=== PATIENT | male | born 1960 | race Caucasian/White ===

== ENCOUNTER 2021-08-06 12:42 | Emergency (ER) | payer OTHER, SELFPAY ==
[2021-08-06 13:14] VITALS: BP 122/71; PULSE 64; RESP 19; TEMP 36.6; O2SAT 99; BMI 24.0
--- NOTE | 2021-08-06 13:55 | ED.GENADULT ---
HPI - General Adult General Chief complaint: General Medical Stated complaint: finger infection Time Seen by Provider: 08/06/21 13:35 Source: patient Mode of arrival: ambulatory Limitations: no limitations History of Present Illness HPI narrative: 61-year-old male presents to ED for right index finger infection. Patient states he was biting the side of the nail to remove some skin and with same finger started picking at nose and then 2 days later started noticing near nail cuticle finger turning green/red and swollen. She denies any IV drug use. Patient denies any history of diabetes. Related Data Previous Rx's Medication Instructions Recorded cephalexin 500 mg capsule 500 mg PO QID 7 Days #28 cap 08/06/21 doxycycline hyclate 100 mg capsule 100 mg PO BID 7 Days #14 cap 08/06/21 Allergies Allergy/AdvReac Type Severity Reaction Status Date / Time acetaminophen Allergy Unknown RASH, ITCHY Unverified 03/06/20 16:39 [From Tylenol-Codeine] codeine Allergy Unknown RASH, ITCHY Unverified 03/06/20 16:39 [From Tylenol-Codeine] Penicillins Allergy Unknown RASH, ITCHY Unverified 03/06/20 16:39 Review of Systems Review of Systems: Right index finger infection Yes all other systems are reviewed and are negative [facility] Social History Social History Advance Directives: No Advance Directives Information Provided: No Physical Exam ED Vital Signs: Vital Signs - 24 hr 08/06/21 13:14 Temperature 98 F Pulse Rate 64 Respiratory Rate 19 Blood Pressure 122/71 Pulse Oximetry 99 BMI result Body Mass Index 24.0 Const General: cooperative, healthy appearing, comfortable, no acute distress, well developed, alert, awake and Physically active Orientation/consciousness: oriented to person and oriented to place [facility] Head: Yes normal to inspection, Yes No palpable skull fracture present, Yes normocephalic and Yes atraumatic Eyes General: appearance normal, both eyes and all related structures Neck Neck: Yes normal visual inspection, Yes full ROM, Yes no lymphadenopathy, Yes no meningeal signs, Yes trachea midline, Yes supple, No anterior neck swelling and No tender Chest Chest palpation & inspection: normal inspection of the chest and normal palpation of entire chest wall Resp Effort & Inspection: normal respiratory effort and able to speak in complete sentences Auscultation: clear to auscultation bilaterally Cardio Jugular venous distension: no JVD Heart sounds: S1 normal heart sound present and S2 normal heart sound present GI Inspection: Yes normal to inspection and No abdominal wall ecchymosis Palpation (GI): Soft to palpation, not firm, nontender, no guarding and not rigid General: No CVA tenderness and Yes no CVA tenderness Back/Spine/Pelvis Back: no CVA tenderness, No CVA tenderness and No back tenderness Skin General skin exam: no rashes or lesions noted and elasticity normal Neuro General: oriented to person, oriented to place and no meningeal signs Extrem General: Yes normal to inspection and Yes full ROM Hand/finger images: 1. Red/green discoloration with swelling and warmth. Capillary refill is intact. Rest of extremities normal. Motor/nerve/vascular exam intact. Negative for signs of tenosynovitis. Patient has complete range of motion of finger. Psych Appearance: grossly normal, well kempt and not disheveled Course Course Course Narrative: Paronychia. Will order tetanus and perform incision drainage Reevaluation(s) Reevaluation #1: Wound cleaned sterile saline Betadine iodine. Size 11 blade used for incision. Green/yellow pus was squeezed. Patient to be discharged with antibiotics Time: 14:59 Medical Decision Making [facility] Narrative Medical decision making narrative: Paronychia Discharge Plan Discharge Clinical Impression: Paronychia of finger Patient Disposition: Home, Self-Care Instructions: Paronychia (ED) Additional Instructions: you will be discharged with antibiotics. Please follow-up with primary care provider. Return to the ED immediately for redness, red streaks, swelling, profuse pus, fever, chills, or any other concerning symptoms. Prescriptions: New doxycycline hyclate 100 mg capsule 100 mg PO BID 7 Days Qty: 14 0RF cephalexin 500 mg capsule 500 mg PO QID 7 Days Qty: 28 0RF Interventions: ED Discharge Assessment Last Done: 08/06/21 15:21 Discharge Date/Time: 08/06/21 15:21 Print Language: Portuguese
[2021-08-06] MEDS: Diphth,Pertus(ACell),Tet Adult 0.5 ML SYRINGE IM (14:04)
[2021-08-06] MEDS: Lidocaine HCl 2 % MPF 5 ML VIAL INFILTRATI ×2 (14:05→14:06)
== END 2021-08-06 15:21 | disposition home or self-care (01) ==
PROVIDERS: Emergency Provider Emergency Medicine Emergency Medical Services; PCP Internal Medicine
DX: S60.410A Abrasion of right index finger, initial encounter (principal); L03.011 Cellulitis of right finger; X58.XXXA Exposure to other specified factors, initial encounter; Y93.9 Activity, unspecified; Y92.9 Unspecified place or not applicable; Y99.9 Unspecified external cause status; Z79.899 Other long term (current) drug therapy
CPT/HCPCS: 90471; 90715; 99283; 99284

== ENCOUNTER 2022-02-16 11:31 | Emergency (ER) | payer OTHER, SELFPAY ==
[2022-02-16 11:46] VITALS: BP 125/80; PULSE 89; RESP 18; TEMP 36.9; O2SAT 97; BMI 24.0
--- NOTE | 2022-02-16 12:51 | ED.SKABFB ---
HPI - Skin/Abscess/Foreign Bdy General Chief complaint: Skin/Abscess/Foreign Body Stated complaint: Infection on lower lip Time Seen by Provider: 02/16/22 12:01 Source: patient Mode of arrival: ambulatory Limitations: no limitations History of Present Illness HPI narrative: 62-year-old male presents to the ER for evaluation of an abscess to his lower lip for the last couple of days. He reports it started after he shaved his face with a dry razor. He has been using topical antibiotic ointment with improvement however when he ran out of the unit complaint: abscess/boil Onset (ago): day(s) (3) Tetanus up to date: yes Location: face Severity: moderate Severity scale (1-10): 5 Quality: aching Pain Consistency: constant Relieving factors: none Exacerbating factors: palpation Associated symptoms: denies other symptoms Treatments prior to arrival: attempted to drain pus at home and OTC topical medication Related Data Previous Rx's Medication Instructions Recorded cephalexin 500 mg capsule 500 mg PO QID 7 days #28 caps 08/06/21 doxycycline hyclate 100 mg capsule 100 mg PO BID 7 days #14 caps 08/06/21 cephalexin 500 mg capsule 500 mg PO QID 5 days #20 caps 02/16/22 mupirocin 2 % topical ointment 1 appl topical BID #15 grams 02/16/22 Allergies Allergy/AdvReac Type Severity Reaction Status Date / Time acetaminophen Allergy Unknown RASH, ITCHY Unverified 03/06/20 16:39 [From Tylenol-Codeine] codeine Allergy Unknown RASH, ITCHY Unverified 03/06/20 16:39 [From Tylenol-Codeine] Penicillins Allergy Unknown RASH, ITCHY Unverified 03/06/20 16:39 Review of Systems Review of Systems: Constitutional: No Fever, No Chills ENT/Mouth: No sore throat, No Rhinorrhea, No Swallowing Difficulty, +Lip swelling, No mouth swelling Eyes: No Eye Pain, No Swelling, No Redness Cardiovascular: No Chest Pain, No SOB Gastrointestinal: No Nausea, No Vomiting, No abdominal Pain Musculoskeletal: No joint pain, No Myalgias Skin: + Skin Lesions, No rash Neuro: No Weakness, No Numbness, No Dizziness, No Headache Psych: No Anxiety/Panic, No Depression Heme/Lymph: No Bruising, No Lymphadenopathy PMFSH Social History Social History Advance Directives: No Advance Directives Information Provided: Yes Physical Exam Vital Signs: Vital Signs: Last Vital Signs Temp 98.5 F 02/16/22 11:46 Pulse 89 02/16/22 11:46 Resp 18 02/16/22 11:46 BP 125/80 02/16/22 11:46 Pulse Ox 97 02/16/22 11:46 O2 Del Method 02/16/22 11:46 BMI result Body Mass Index 24.0 Appearance: Alert. Oriented X3. No acute distress. HEENT: lower lip with mild swelling centrally with a small pustule with green discharge, no vesicles. tender. normal oropharynx. no oral lesions CVS: Normal heart rate and rhythm. Pulses normal. Respiratory: No respiratory distress. Skin: Skin warm and dry. Normal skin color. Normal skin turgor. No rashes. Extremities: normal inspection x4, normal ROM Neuro: Oriented X 3. lethargic at times, appears to be under the influence of drugs Course Course Course Narrative: 62 yo male presents to the ER with a small abscess to his lower lip after shaving. purulent drainage. does not appear to be a herpetic lesion. offered to make small incision to help drainage however he refused. he is requesting topical abx. given the swelling of the lip will also prescribe oral abx as well. advised to continue warm compresses several times per day. stable for d/c home. Discharge Plan Discharge Clinical Impression: Abscess of skin or subcutaneous tissue Patient Disposition: Home, Self-Care Instructions: Abscess (ED) Additional Instructions: Use warm compresses to the area several times per day. Take the prescribed antibiotic as directed. Use a topical antibiotic as directed. If you develop new or worsening symptoms call 911 or come back to the ER for further evaluation. Prescriptions: New cephalexin 500 mg capsule 500 mg PO QID 5 Days Qty: 20 0RF mupirocin 2 % ointment 1 appl topical BID Qty: 15 0RF No Action doxycycline hyclate 100 mg capsule 100 mg PO BID 7 Days Qty: 14 0RF cephalexin 500 mg capsule 500 mg PO QID 7 Days Qty: 28 0RF Interventions: ED Discharge Assessment Last Done: 02/16/22 13:19 Discharge Date/Time: 02/16/22 13:19
== END 2022-02-16 13:19 | disposition home or self-care (01) ==
PROVIDERS: Emergency Provider Emergency Medicine; PCP Internal Medicine
DX: K13.0 Diseases of lips (principal)
CPT/HCPCS: 99282; 99283

== ENCOUNTER 2022-05-17 14:59 | Inpatient (IN) | payer OTHER, SELFPAY ==
--- NOTE | ~2022-05-17 | CT_ITS ---
EXAMINATION: CT ABDOMEN WITH CONTRAST CLINICAL INFORMATION: Ruptured appendicitis with abscess COMPARISON: Previous CT of the abdomen and pelvis from yesterday TECHNIQUE: Contiguous axial thin section helical images of the limited lower abdomen were performed following the administration of oral contrast and 85 mL of Omnipaque 350 intravenous contrast. The data set was reformatted in the coronal and sagittal planes and reviewed on an independent workstation. Exam was performed pre-CT drainage This CT examination was performed using dose optimization techniques as appropriate, variously including the following: *Automated exposure control *Adjustment of mA and/or kV according to patient size (this includes techniques or standardized protocols for targeted exams where dose is matched to indication/reason for exam; i.e. extremities or head) *Use of iterative reconstruction technique DLP: 198 mGy-cm FINDINGS: The appendix appears retrocecal and extends superiorly. There is extensive inflammatory changes seen in the right lower quadrant surrounding the appendix with stranding of the fat and small amount of fluid. There is high attenuation at the base of the appendix is questionable for an appendicolith. Adjacent to that are several small multiloculated fluid collections, largest measuring 2 cm x 2 cm x 3 cm in diameter containing a small amount of air, for example axial image 9 series 4. There are several smaller possible adjacent 1 cm fluid collections for example axial image 10 series 4. There is a small amount of fluid in this region and stranding of the fat. There are small mesenteric lymph nodes. There is mass effect on the cecum. The cecum is patulous. What was thought to represent a periappendiceal abscess represents a patulous cecum. Findings were discussed with Dr. Scott by telephone. Drain was not placed. There is a small amount of fluid in the right hepatorenal renal space. The visualized kidneys are otherwise normal. There is a small 3 mm low-attenuation lesion in the inferior right lobe of the liver. Pancreas spleen and adrenal glands and the majority of the liver not imaged. Normal bladder. Slightly enlarged prostate gland. Small left inguinal hernia containing fat. Normal vascular structures. Degenerative changes of the spine. CT/CT abdomen w IV con IMPRESSION: Retrocecal appendix with likely perforated appendicitis and small periappendiceal abscesses, largest measuring 2 x 2 x 3 cm. Percutaneous drain was not placed due to small size of the abscess(s). The appendix appears retrocecal and courses superiorly. Fleischner guidelines were followed.
--- NOTE | ~2022-05-17 | CT_ITS ---
EXAMINATION: CT ABDOMEN AND PELVIS WITHOUT CONTRAST CLINICAL INFORMATION: Constipation COMPARISON: None TECHNIQUE: Multidetector volumetric imaging was performed from the superior aspect of the liver through the pubic symphysis. Sagittal and coronal reformatted images were obtained on the technologist's workstation. This CT examination was performed using dose optimization techniques as appropriate, variously including the following: *Automated exposure control *Adjustment of mA and/or kV according to patient size (this includes techniques or standardized protocols for targeted exams where dose is matched to indication/reason for exam; i.e. extremities or head) *Use of iterative reconstruction technique DLP: 442 mGy-cm FINDINGS: LUNG BASES: The visualized lung bases are unremarkable. LIVER, GALLBLADDER, AND BILIARY TREE: The liver is normal in size and shape but demonstrates decreased attenuation suggesting hepatic steatosis. No focal hepatic lesion or biliary ductal dilatation is present. The gallbladder contains some layering high density material which may be sludge or possibly stones but otherwise is unremarkable with no evidence of calcified gallstones, gallbladder wall thickening, or obvious pericholecystic inflammatory changes. PANCREAS: Unremarkable. SPLEEN: Unremarkable. ADRENAL GLANDS: Unremarkable. KIDNEYS AND URETERS: The kidneys are normal in size, shape, and attenuation. No hydronephrosis, hydroureter, or calculi seen. No perinephric stranding. BLADDER: Unremarkable. GASTROINTESTINAL TRACT: A significant inflammatory process is present in the right mid abdomen/right lower quadrant. I believe this represents appendicitis with a large appendicolith and probable periappendiceal abscess measuring 6.4 x 5.5 x 3.9 cm. A few scattered colonic diverticula are seen without diverticulitis. The small bowel and the remainder of the large bowel are unremarkable. . ABDOMINAL WALL: No significant hernia is appreciated. LYMPH NODES: Normal. VASCULAR: Unremarkable. PELVIC VISCERA: Mildly prominent prostate. Seminal vesicles appear normal OSSEOUS STRUCTURES: Unremarkable. CT/CT abdomen pelvis wo IV con IMPRESSION: 1. Acute appendicitis with large appendicolith and periappendiceal abscess. 2. Incidental note made of hepatic steatosis, scattered colonic diverticula without diverticulitis and mildly prominent prostate. Fleischner guidelines were followed.
--- NOTE | 2022-05-17 16:25 | ED_ITS ---
HPI - General Adult General Chief complaint: Abdominal Pain Stated complaint: Abd pain Time Seen by Provider: 05/17/22 19:14 Related Data Previous Rx's Medication Instructions Recorded aspirin 81 mg chewable tablet 81 mg PO DAILY #30 tabs 01/06/23 gabapentin 100 mg capsule 100 mg PO BID #30 caps 01/06/23 hydroxyzine HCl 50 mg tablet 50 mg PO Q8H PRN Anxiety #20 tabs 01/06/23 melatonin 3 mg tablet 6 mg PO BEDTIME PRN Insomnia #30 01/06/23 tabs Allergies Allergy/AdvReac Type Severity Reaction Status Date / Time acetaminophen Allergy Unknown RASH, ITCHY Verified 06/03/22 14:29 [From Tylenol-Codeine] codeine Allergy Unknown RASH, ITCHY Verified 06/03/22 14:29 [From Tylenol-Codeine] Penicillins Allergy Unknown RASH, ITCHY Verified 06/03/22 14:29 PMFSH Past Medical History Surgical History H/O inguinal hernia repair S/P laparoscopic appendectomy (05/19/22) Social History Social History Household Members: None Household Members Other:: 1 Housing: Apartment Do you presently have visiting nurse or other home services: No Patient Tobacco Use Status: Former Tobacco user Quit Date: 1978 Tobacco use type: Cigarette Substance Use Type: Crack/Cocaine service: No Current occupational status: disabled Physical Exam ED Vital Signs: Vital Signs - 24 hr 05/17/22 16:27 Temperature 99 F Pulse Rate 82 Respiratory Rate 16 Blood Pressure 108/70 Pulse Oximetry 96 Oxygen Delivery Method Room Air BMI result Body Mass Index 25.7 Course Reevaluation(s) Reevaluation #1: 62 year old no known pmhx presents w/ constipation X2 days and states my stomach is locked up . Reports he hasnt been able to eat in two days. Tells me having difficulty passing gas. No hx of malignancy, LBO, SBO. Reports his stomach doesnt feel right all over. Denies chest pain, sob, fevers, chills, change in urinarion or bowel habits. Hx of hernias. PE- diffuse tenderness,normal BS Plan- labs, urine, dry ct. Time: 16:27 Reevaluation #2: Appears even more uncomfortable than before, requesting pain meds CT shows appendicitis will bring patient to back for prompt eval and surgical consult. Time: 19:17 Reevaluation #3: This patient was evaluated by provider Rena CONDON on 05/17/22, please refer to that her providers full charge Time: 13:45 Medications Administered Discontinued Medications Generic Name Dose Route Start Last Admin Trade Name Freq PRN Reason Stop Dose Admin Diatrizoate Meglum/Diatrizoate Sod 30 ml 05/18/22 14:37 05/18/22 14:38 Diatrizoate Meglumine, Sodium 30 Ml Solution PO 05/18/22 14:38 30 ml ONCE ONE Administration Docusate Sodium 100 mg 05/17/22 16:28 05/17/22 17:50 Docusate Sodium 100 Mg Capsule PO 05/17/22 16:29 100 mg ONCE ONE Administration Hydromorphone HCl 0.5 mg 05/17/22 19:35 05/18/22 08:09 Hydromorphone Hcl 0.5 Mg/0.5 Ml Syringe IVPUSH 0.5 mg Q3H PRN Administration Pain, Severe (Pain Scale 7-10) Protocol Levofloxacin 750 mg in 150 mls @ 100 mls/hr 05/17/22 19:31 05/17/22 22:30 Levaquin IV 05/17/22 21:00 Infused ONCE ONE Infusion Metronidazole 500 mg in 100 mls @ 100 mls/hr 05/17/22 19:31 05/18/22 00:21 Flagyl IV 05/17/22 20:30 Infused ONCE ONE Infusion Dextrose/Lactated Ringer's 1,000 mls @ 125 mls/hr 05/17/22 19:45 05/20/22 12:38 D5lr IVCONT Infused .Q8H MARY Infusion Levofloxacin 500 mg in 100 mls @ 100 mls/hr 05/18/22 06:04 05/22/22 06:49 Levaquin IV Infused Q24H MARY Infusion Metronidazole 500 mg in 100 mls @ 100 mls/hr 05/18/22 07:00 05/22/22 09:44 Flagyl IV Infused Q8H MARY Infusion Iohexol 100 ml 05/18/22 14:36 05/18/22 14:37 Iohexol 350 Mg/Ml 100 Ml Infus..Btl IV 05/18/22 14:37 100 ml ONCE ONE Administration Ketorolac Tromethamine 15 mg 05/18/22 11:15 05/19/22 03:15 Ketorolac Tromethamine 30 Mg/Ml Vial IVPUSH 15 mg Q6H PRN Administration abdominal pain Morphine Sulfate 4 mg 05/17/22 19:17 05/17/22 20:34 Morphine Sulfate 4 Mg/Ml Cartridge IVPUSH 05/17/22 19:18 4 mg ONCE ONE Administration Protocol Ondansetron HCl 4 mg 05/17/22 19:17 05/17/22 20:34 Ondansetron Hcl 4 Mg/2 Ml Vial IVPUSH 05/17/22 19:18 4 mg ONCE ONE Administration Oxycodone HCl 5 mg 05/17/22 19:35 05/18/22 10:04 Oxycodone Hcl Immed Release 5 Mg Tablet PO 5 mg Q6H PRN Administration Pain, Severe (Pain Scale 7-10) Oxycodone HCl 5 mg 05/18/22 11:16 05/21/22 09:37 Oxycodone Hcl Immed Release 5 Mg Tablet PO 5 mg Q4H PRN Administration Pain, Moderate (Pain Scale 4-6 Oxycodone HCl 10 mg 05/18/22 11:13 05/22/22 08:59 Oxycodone Hcl Immed Release 5 Mg Tablet PO 10 mg Q4H PRN Administration Pain, Severe (Pain Scale 7-10) Polyethylene Glycol 17 gm 05/17/22 16:28 05/17/22 17:50 Polyethylene Glycol 3350 17 Gm Powd.Pack PO 05/17/22 16:29 17 gm ONCE ONE Administration Senna 15 ml 05/17/22 16:28 05/17/22 17:50 Senna [place] Extract Oral Syrup 15 Ml Syrup PO 05/17/22 16:29 15 ml ONCE ONE Administration Sodium Chloride 3 ml 05/18/22 00:00 05/22/22 08:34 0.9 % Sodium Chloride Flush 3 Ml Syringe IVFLUSH Not Given [facility] Zolpidem Tartrate 5 mg 05/17/22 19:35 05/20/22 23:53 Zolpidem Tartrate 5 Mg Tablet PO 5 mg BEDTIME PRN Administration Insomnia Medical Decision Making Lab Data 05/19/22 07:06 05/18/22 06:03 Labs: Lab Results 05/17/22 05/17/22 05/17/22 Range/Units 19:35 19:35 19:35 WBC 17.6 H (4.8-10.8) X10*3/uL RBC 5.21 (4.60-5.80) X10*6/uL Hgb 16.0 (14.0-18.0) g/dl Hct 46.0 (42.0-52.0) % MCV 88.3 (80.0-98.0) fL MCH 30.7 (27.0-33.0) pg MCHC 34.8 (31.0-36.0) g/dl RDW 12.0 (11.0-16.0) % Plt Count 182 (160-400) X10*3/uL MPV 10.1 (9.4-12.4) fL Immature Gran % (Auto) 0.3 (0.0-0.4) % Neut % (Auto) 85.9 H (45-73) % Lymph % (Auto) 7.7 L (20-40) % [place] % (Auto) 5.8 (2-11) % Eos % (Auto) 0.1 (0-4) % Baso % (Auto) 0.2 (0-2) % Lymph # (Auto) 1.4 (1.2-4.9) X10*3/uL [place] # (Auto) 1.0 (0.1-1.2) X10*3/uL Eos # (Auto) 0.0 (0.0-0.4) X10*3/uL Baso # (Auto) 0.0 (0.0-0.2) X10*3/uL Abs Immat Gran (auto) 0.06 H (0.00-0.03) X10*3/uL Absolute Neuts (auto) 15.1 H (2.0-8.3) x10*3/uL Absolute Nucleated RBC 0.000 (0.0-0.012) X10*3/uL Nucleated RBC % (auto) 0.0 (0.0-0.2) /100WBC Sodium 135 (135-145) mmol/L Potassium 3.6 (3.3-5.1) mmol/L Chloride 101 (96-108) mmol/L Carbon Dioxide 26 (22-29) mmol/L Anion Gap 12 (12-20) BUN 13 (9-16) mg/dL Creatinine 1.00 (0.5-1.4) mg/dL Estim Creat Clear Calc 64.9 Estimated GFR > 60 Random Glucose 126 H (60-115) mg/dL Calcium 9.3 (8.4-10.2) mg/dL Magnesium 2.2 (1.6-2.6) mg/dL Total Bilirubin 2.9 H (0.0-1.0) mg/dL AST 16 (5-37) U/L ALT 13 (0-40) U/L Alkaline Phosphatase 46 (39-117) U/L Total Protein 7.3 (6.5-8.0) g/dL Albumin 4.3 (3.5-5.0) g/dL Lipase 25 (8-78) U/L COVID-19 (ZAHRAA) Negative (Negative) COVID-19 Clin Com See Note Discharge Plan Discharge Clinical Impression: Acute appendicitis, Abdominal abscess, Appendicolith Patient Disposition: Admitted As Inpatient Interventions: Admission Worksheet (ED) Last Done: 05/19/22 14:44 Discharge Date/Time: 05/19/22 14:45
[2022-05-17 16:27] VITALS: BP 108/70; PULSE 82; RESP 16; TEMP 37.2; O2SAT 96; BMI 25.7
[2022-05-17] MEDS: Docusate Sodium 100 MG CAPSULE PO (17:50)
[2022-05-17] MEDS: polyethylene glycoL 3350 17 GM POWD.PACK PO (17:50)
--- NOTE | 2022-05-17 19:18 | ED_ITS ---
HPI - Abdominal Pain General Chief Complaint: Abdominal Pain Stated Complaint: Abd pain Time Seen by Provider: 05/17/22 19:14 Source: patient Mode of arrival: ambulatory Limitations: no limitations History of Present Illness HPI narrative: 62-year-old male presents with diffuse abdominal pain, difficulty passing flatus for the past 2 days, constipation, and poor p.o. intake. Has not eaten any food in the past 2 days, has been only taking sips of water. Patient appears very uncomfortable. Has done but in his pants because his abdominal pain is so severe. He does not report fevers or chills, denies nausea and vomiting. MD elicited complaint: abdominal pain Pertinent past history: none Onset (ago): day(s) (2) Pain Consistency: constant Location: diffuse Severity: severe Pain scale (0-10): 10 Quality: aching Migration to: no migration Exacerbating factors: eating, bowel movement and movement Relieving factors: nothing Associated symptoms: constipation and anorexia Related Data Home Medications Medication Instructions Recorded Confirmed No Known Home Meds 05/17/22 05/17/22 Allergies Allergy/AdvReac Type Severity Reaction Status Date / Time acetaminophen Allergy Unknown RASH, ITCHY Verified 05/17/22 16:31 [From Tylenol-Codeine] codeine Allergy Unknown RASH, ITCHY Verified 05/17/22 16:31 [From Tylenol-Codeine] Penicillins Allergy Unknown RASH, ITCHY Verified 05/17/22 16:31 Review of Systems Review of Systems Constitutional: Positive anorexia, No Fever, No Chills ENT/Mouth: No Ear Pain, No Hoarseness, No sore throat Eyes: No Eye Pain, No Swelling, No Redness, No Foreign Body Cardiovascular: No Chest Pain, No SOB Respiratory: No Cough, No Dyspnea Gastrointestinal: No Nausea, No Vomiting, No Diarrhea, positive abdominal Pain Genitourinary: No Dysuria, No Hematuria Musculoskeletal: No joint pain, No Myalgias, No Joint Swelling Skin: No Skin lacerations, No rash Neuro: No Weakness, No Numbness, No Paresthesias, No Loss of Consciousness, No Dizziness, No Headache Psych: No Anxiety/Panic, No Depression Heme/Lymph: no easy bruising, no Lymphadenopathy Endocrine: No Polyuria, No Polydipsia Yes all other systems are reviewed and are negative [facility] Past Medical History Attestation statement: The following information was validated with the patient. Source: old records reviewed Social History Social History Advance Directives: No Advance Directives Information Provided: No Physical Exam ED Vital Signs: Vital Signs - 24 hr 05/17/22 16:27 Temperature 99 F Pulse Rate 82 Respiratory Rate 16 Blood Pressure 108/70 Pulse Oximetry 96 Oxygen Delivery Method Room Air BMI result Body Mass Index 25.7 Appearance: Alert. Oriented X3. Moderate distress. Eyes: Pupils equal, round and reactive to light. ENT: Pharynx normal. Neck: Normal inspection. Neck supple. CVS: Normal heart rate and rhythm. Pulses normal. Respiratory: No respiratory distress. Breath sounds normal. Abdomen: Diffusely tender with rebound tenderness. No rigidity. Skin: Skin warm and dry. Normal skin color. Normal skin turgor. Extremities: No lower extremity edema. Moves all extremities against resistance. Neuro: No motor deficit. No sensory deficit. Cranial nerves 2-12 intact. Course Course Course Narrative: 62-year-old male presents for diffuse abdominal pain for the past 2 days, unable to eat, has had sips of water. Is reporting constipation, is unable to button his pants because of the severe abdominal pain. CT scan was completed while patient was in the emergency department waiting room which indicates appe ndicitis, appendicoliths, and abdominal abscess. 19:[address] Scott, order for Zosyn, morphine, Zofran. Last meal 2 days ago. 19:26 plan of care is to admit for antibiotics, IR consult. Plan for admission by Dr. Scott Consultations Consultation #1: Tyler Time: 19:18 Medications Administered Discontinued Medications Generic Name Dose Route Start Last Admin Trade Name Freq PRN Reason Stop Dose Admin Docusate Sodium 100 mg 05/17/22 16:28 05/17/22 17:50 Docusate Sodium 100 Mg Capsule PO 05/17/22 16:29 100 mg ONCE ONE Administration Levofloxacin 750 mg in 150 mls @ 100 mls/hr 05/17/22 19:31 05/17/22 20:34 Levaquin IV 05/17/22 21:00 100 mls/hr ONCE ONE Administration Morphine Sulfate 4 mg 05/17/22 19:17 05/17/22 20:34 Morphine Sulfate 4 Mg/Ml Cartridge IVPUSH 05/17/22 19:18 4 mg ONCE ONE Administration Protocol Ondansetron HCl 4 mg 05/17/22 19:17 05/17/22 20:34 Ondansetron Hcl 4 Mg/2 Ml Vial IVPUSH 05/17/22 19:18 4 mg ONCE ONE Administration Polyethylene Glycol 17 gm 05/17/22 16:28 05/17/22 17:50 Polyethylene Glycol 3350 17 Gm Powd.Pack PO 05/17/22 16:29 17 gm ONCE ONE Administration Senna 15 ml 05/17/22 16:28 05/17/22 17:50 Senna Echelon Extract Oral Syrup 15 Ml Syrup PO 05/17/22 16:29 15 ml ONCE ONE Administration MDM - Abdominal Pain Differential Diagnosis Differential diagnosis: Likely abdominal pain and acute appendicitis Medical Records Attestation: I reviewed the patient's medical records. Lab Data Attestation: I reviewed the patient's lab results. Result diagrams: 05/17/22 19:35 05/17/22 19:35 Labs: Lab Results 05/17/22 05/17/22 05/17/22 Range/Units 19:35 19:35 19:35 WBC 17.6 H (4.8-10.8) X10*3/uL RBC 5.21 (4.60-5.80) X10*6/uL Hgb 16.0 (14.0-18.0) g/dl Hct 46.0 (42.0-52.0) % MCV 88.3 (80.0-98.0) fL MCH 30.7 (27.0-33.0) pg MCHC 34.8 (31.0-36.0) g/dl RDW 12.0 (11.0-16.0) % Plt Count 182 (160-400) X10*3/uL MPV 10.1 (9.4-12.4) fL Immature Gran % (Auto) 0.3 (0.0-0.4) % Neut % (Auto) 85.9 H (45-73) % Lymph % (Auto) 7.7 L (20-40) % [place] % (Auto) 5.8 (2-11) % Eos % (Auto) 0.1 (0-4) % Baso % (Auto) 0.2 (0-2) % Lymph # (Auto) 1.4 (1.2-4.9) X10*3/uL [place] # (Auto) 1.0 (0.1-1.2) X10*3/uL Eos # (Auto) 0.0 (0.0-0.4) X10*3/uL Baso # (Auto) 0.0 (0.0-0.2) X10*3/uL Abs Immat Gran (auto) 0.06 H (0.00-0.03) X10*3/uL Absolute Neuts (auto) 15.1 H (2.0-8.3) x10*3/uL Absolute Nucleated RBC 0.000 (0.0-0.012) X10*3/uL Nucleated RBC % (auto) 0.0 (0.0-0.2) /100WBC Sodium 135 (135-145) mmol/L Potassium 3.6 (3.3-5.1) mmol/L Chloride 101 (96-108) mmol/L Carbon Dioxide 26 (22-29) mmol/L Anion Gap 12 (12-20) BUN 13 (9-16) mg/dL Creatinine 1.00 (0.5-1.4) mg/dL Estim Creat Clear Calc 64.9 Estimated GFR > 60 Random Glucose 126 H (60-115) mg/dL Calcium 9.3 (8.4-10.2) mg/dL Magnesium 2.2 (1.6-2.6) mg/dL Total Bilirubin 2.9 H (0.0-1.0) mg/dL AST 16 (5-37) U/L ALT 13 (0-40) U/L Alkaline Phosphatase 46 (39-117) U/L Total Protein 7.3 (6.5-8.0) g/dL Albumin 4.3 (3.5-5.0) g/dL Lipase 25 (8-78) U/L COVID-19 (ZAHRAA) Negative (Negative) COVID-19 Clin Com See Note Imaging Data CT scan - abdomen: Attestation: I personally reviewed and interpreted this imaging study as follows: Radiologist's impression: EXAMINATION: CT ABDOMEN AND PELVIS WITHOUT CONTRAST? CLINICAL INFORMATION: Constipation? COMPARISON: None? TECHNIQUE: Multidetector volumetric imaging was performed from the superior aspect of the liver through the pubic symphysis. Sagittal and coronal reformatted images were obtained on the technologist's workstation.? This CT examination was performed using dose optimization techniques as appropriate, variously including the following: *Automated exposure control *Adjustment of mA and/or kV according to patient size (this includes techniques or standardized protocols for targeted exams where dose is matched to indication/reason for exam; i.e. extremities or head) *Use of iterative reconstruction technique DLP: 442 mGy-cm FINDINGS: LUNG BASES: The visualized lung bases are unremarkable.? LIVER, GALLBLADDER, AND BILIARY TREE: The liver is normal in size and shape but demonstrates decreased attenuation suggesting hepatic steatosis. No focal hepatic lesion or biliary ductal dilatation is present. The gallbladder contains some layering high density material which may be sludge or possibly stones but otherwise is unremarkable with no evidence of calcified gallstones, gallbladder wall thickening, or obvious pericholecystic inflammatory changes.? PANCREAS: Unremarkable.? SPLEEN: Unremarkable.? ADRENAL GLANDS: Unremarkable.? KIDNEYS AND URETERS: The kidneys are normal in size, shape, and attenuation. No hydronephrosis, hydroureter, or calculi seen. No perinephric stranding. ? BLADDER: Unremarkable.? GASTROINTESTINAL TRACT: A significant inflammatory process is present in the right mid abdomen/right lower quadrant. I believe this represents appendicitis with? a large appendicolith and probable periappendiceal abscess measuring 6.4 x 5.5 x 3.9 cm. A few scattered colonic diverticula are seen without diverticulitis. The small bowel and the remainder of the large bowel? are unremarkable. .? ABDOMINAL WALL: No significant hernia is appreciated.? LYMPH NODES: Normal. VASCULAR: Unremarkable. PELVIC VISCERA: Mildly prominent prostate. Seminal vesicles appear normal? OSSEOUS STRUCTURES: Unremarkable.? CT/CT abdomen pelvis wo IV con IMPRESSION: 1.? Acute appendicitis with large appendicolith and periappendiceal abscess. 2.? Incidental note made of hepatic steatosis, scattered colonic diverticula without diverticulitis and mildly prominent prostate. ? Fleischner guidelines were followed. Discharge Plan Discharge Clinical Impression: Acute appendicitis, Abdominal abscess, Appendicolith Patient Disposition: Admitted As Inpatient
--- NOTE | 2022-05-17 19:19 | ECG_ITS ---
Test Reason : ABD PAIN Blood Pressure : / mmHG Vent. Rate : 082 BPM Atrial Rate : 082 BPM P-R Int : 132 ms QRS Dur : 088 ms QT Int : 360 ms P-R-T Axes : 037 043 031 degrees QTc Int : 420 ms Normal sinus rhythm Normal ECG No previous ECGs available Referred By: Senia Chase Electronically Signed By:YING SCOTT MD
[2022-05-17 19:52] LABS: COVID-19 Test Negative (Negative); IDNOW Serial# 16C4AD1C
[2022-05-17 19:53] LABS: MANUAL DIFF FLAG NO
[2022-05-17 19:55] LABS: Basophils Percent Auto 0.2 % (0-2); Eosinophils Percent Auto 0.1 % (0-4); Imm Gran Abs Auto 0.06 X10*3/uL (0.00-0.03); Imm Gran Pct Auto 0.3 % (0.0-0.4); Lymphocytes Absolute Auto 1.4 X10*3/uL (1.2-4.9); Lymphocytes Percent Auto 7.7 % (20-40); Mean Corpuscular HGB Conc 34.8 g/dl (31.0-36.0); Mean Corpuscular Hemoglobin 30.7 pg (27.0-33.0); Mean Corpuscular Volume 88.3 fL (80.0-98.0); Mean Platelet Volume 10.1 fL (9.4-12.4); Monocytes Percent Auto 5.8 % (2-11); Neutrophils Absolute Auto 15.1 x10*3/uL (2.0-8.3); Neutrophils Percent Auto 85.9 % (45-73); Platelet Count 182 X10*3/uL (160-400); Red Blood Count 5.21 X10*6/uL (4.60-5.80); White Blood Count 17.6 X10*3/uL (4.8-10.8)
[2022-05-17 20:15] LABS: Alanine Aminotransferase 13 U/L (0-40); Albumin Level 4.3 g/dL (3.5-5.0); Alkaline Phosphatase 46 U/L (39-117); Anion Gap 12 (12-20); Aspartate Amino Transferase 16 U/L (5-37); Bilirubin Total 2.9 mg/dL (0.0-1.0); Blood Urea Nitrogen 13 mg/dL (9-16); Calcium 9.3 mg/dL (8.4-10.2); Carbon Dioxide 26 mmol/L (22-29); Chloride 101 mmol/L (96-108); Creatinine Clr Calc Pharmacy 64.9; Estimated Glomerular Filt Rate > 60; Glucose Random 126 mg/dL (60-115); Lipase 25 U/L (8-78); Magnesium 2.2 mg/dL (1.6-2.6); Potassium 3.6 mmol/L (3.3-5.1); Sodium 135 mmol/L (135-145); Total Protein 7.3 g/dL (6.5-8.0)
[2022-05-17] MEDS: Morphine Sulfate 4 MG/ML CARTRIDGE IVPUSH (20:34)
[2022-05-17] MEDS: levoFLOXacin/D5W 750 MG/150 ML PIGGYBACK 100 MG IV (20:34)
[2022-05-17] MEDS: ondansetron HCL 4 MG/2 ML VIAL IVPUSH (20:34)
--- NOTE | 2022-05-17 20:48 | PHA.MEDREC ---
Pharmacy Consult ? Medication Reconciliation Pharmacy has completed the medication reconciliation. Patient reported no medications at home. Sola Bennett, OscarD
[2022-05-17 21:54] VITALS: BP 107/70; PULSE 91; RESP 18; TEMP 37.1; O2SAT 95
--- NOTE | 2022-05-17 22:02 | MHC.CM.PN ---
CM met with admitted patient with bed assignment pending. A&Ox4. Lives alone. Has [facility] PS[facility]OLOGIST from [facility]. 7 days/week. 9-12 noon and 12 mn -2am. Uses a cane, but states he lost it on the bus. Pt is un-vaccinated. Is Covid negative. HCP education provided, declines HCP at this time. D/C plan: home w/o services. [facility] PSYCHOLOGIST will transport home. [facility] ([phone]). CM will follow for d/c needs.
[2022-05-17] MEDS: HYDROmorphone HCl 0.5 MG/0.5 ML SYRINGE IVPUSH (22:30)
[2022-05-17] MEDS: metroNIDAZOLE/NS 500 MG/100 ML PIGGYBACK 100 MG IV (22:30)
[2022-05-17] MEDS: Dextrose 5 % and Lactated Ring 1,000 ML 125 ML IVCONT (23:40)
[2022-05-17] MEDS: 0.9 % Sodium Chloride Flush 3 ML SYRINGE IVFLUSH (23:41)
[2022-05-17 23:43] VITALS: BP 108/59; PULSE 87; RESP 17; TEMP 37.2; O2SAT 94
[2022-05-18] VITALS (7 sets, daily range): BP systolic 95–116; BP diastolic 58–73; PULSE 71–84; RESP 14–20; TEMP 36.5–36.9; O2SAT 94–96
[2022-05-18] MEDS: HYDROmorphone HCl 0.5 MG/0.5 ML SYRINGE IVPUSH ×2 (03:44→08:09)
[2022-05-18] MEDS: Dextrose 5 % and Lactated Ring 1,000 ML 125 ML IVCONT ×3 (03:45→21:14)
[2022-05-18 06:06] LABS: Appearance Urine Clear; Color Urine Dark Yellow; Glucose Urine UA Negative (Negative); Leukocyte Esterase Urine Trace (Negative); Nitrite Urine Negative (Negative); PH 5.5 (5.0-9.0); Specific Gravity - Urine 1.025 (1.005-1.025); UMIC TRIGGER UACC YES; Urine Blood Small (1+) (Negative); Urine Ketones Negative (Negative); Urine Protein 30 (1+) mg/dL (Neg-Trace)
[2022-05-18 06:16] LABS: Bacteria Urine None Seen (None Seen); Hyaline Casts Urine 0-2 /LPF (0-2); Squamous Epithelial Cell Urine 0-2 /HPF (0-2); WBC Urine 0-5 /HPF (0-5)
[2022-05-18] MEDS: levoFLOXacin/D5W 500 MG/100 ML PIGGYBACK 100 MG IV (06:23)
[2022-05-18 06:32] LABS: MANUAL DIFF FLAG NO
[2022-05-18 06:34] LABS: Basophils Percent Auto 0.2 % (0-2); Eosinophils Percent Auto 0.3 % (0-4); Hematocrit 45.9 % (42.0-52.0); Hemoglobin 15.1 g/dl (14.0-18.0); Imm Gran Abs Auto 0.08 X10*3/uL (0.00-0.03); Imm Gran Pct Auto 0.5 % (0.0-0.4); Lymphocytes Absolute Auto 1.4 X10*3/uL (1.2-4.9); Lymphocytes Percent Auto 9.1 % (20-40); Mean Corpuscular HGB Conc 32.9 g/dl (31.0-36.0); Mean Corpuscular Volume 91.3 fL (80.0-98.0); Mean Platelet Volume 10.4 fL (9.4-12.4); Monocytes Absolute Auto 0.9 X10*3/uL (0.1-1.2); Monocytes Percent Auto 5.7 % (2-11); Neutrophils Percent Auto 84.2 % (45-73); Platelet Count 179 X10*3/uL (160-400); Red Blood Count 5.03 X10*6/uL (4.60-5.80); White Blood Count 15.4 X10*3/uL (4.8-10.8)
[2022-05-18 06:55] LABS: Anion Gap 12 (12-20); Blood Urea Nitrogen 14 mg/dL (9-16); Carbon Dioxide 29 mmol/L (22-29); Chloride 101 mmol/L (96-108); Creatinine Clr Calc Pharmacy 60.1; Estimated Glomerular Filt Rate > 60; Glucose Random 141 mg/dL (60-115); Potassium 3.7 mmol/L (3.3-5.1); Sodium 138 mmol/L (135-145)
--- NOTE | 2022-05-18 07:44 | P.HPGS_ITS ---
History of Present Illness History of Present Illness Date of Service: 05/18/22 Chief complaint: Perforated appendicitis with abscess Narrative: John John is a 62 year old male presenting with complaints of abdominal pain in the right lower quadrant of 2 days duration. The pain was associated with fever and chills, anorexia, and constipation. He denied nausea or vomiting. Pain began in the right upper quadrant and gradually radiated to the right lower quadrant. He denied a previous history of similar symptoms. He subsequently presented to the emergency department and was noted to be tender in the right lower quadrant. CT abdomen and pelvis was obtained and revealed a fluid collection in the right lower quadrant with fecalith nearby suggestive of a perforated appendicitis with abscess formation. Laboratories revealed WBC of 17,000. He is admitted to the surgical service for further management of the perforated appendicitis with abscess formation. Review of Systems Review of Systems: Yes all other systems are reviewed and are negative Constitutional: Constitutional: Reports chills, Reports fever(s), Denies headache(s), Reports poor appetite and Denies weakness ENT: Denies headache(s) Cardiovascular: Cardiovascular: Denies chest pain, Denies irregular heart rhythm, Denies palpitations and Denies dyspnea Respiratory: Respiratory: Denies cough, Denies excessive phlegm production and Denies dyspnea Gastrointestinal: Gastrointestinal: Reports as per HPI, Reports abdominal pain, Denies bloating, Reports change in bowel habits, Reports constipation, Denies heartburn, Denies diarrhea, Denies nausea and Denies vomiting Genitourinary: Genitourinary: Denies difficulty urinating and Denies urinary frequency Musculoskeletal: Musculoskeletal: Denies back pain, Denies muscle weakness and Denies numbness Integumentary/Breasts: Skin/Breast: Denies changing lesions and Denies unusual bruising Neurologic: Denies headache(s), Denies numbness, Denies paresthesias and Denies weakness Psychiatric: Psychiatric: Denies anxiety and Denies depression Endocrine: Endocrine: Denies palpitations Hematologic/Lymphatic: Hematologic/Lymphatic: Denies lymphadenopathy [facility] Surgical History Surgical History (Updated 05/18/22 @ 07:47 by Jaskaran Scott MD) H/O inguinal hernia repair Social History Social History Advance Directives: No Advance Directives Information Provided: No service: No Current occupational status: disabled Meds Allergies Allergy/AdvReac Type Severity Reaction Status Date / Time acetaminophen Allergy Unknown RASH, ITCHY Verified 05/17/22 16:31 [From Tylenol-Codeine] codeine Allergy Unknown RASH, ITCHY Verified 05/17/22 16:31 [From Tylenol-Codeine] Penicillins Allergy Unknown RASH, ITCHY Verified 05/17/22 16:31 Active Medications: Current Medications Hydromorphone HCl (Hydromorphone Hcl 0.5 Mg/0.5 Ml Syringe) 0.5 mg IVPUSH Q3H PRN; Protocol PRN Reason: Pain, Severe (Pain Scale 7-10) Last Admin: 05/18/22 03:44 Dose: 0.5 mg Dextrose/Lactated Ringer's (D5lr) 1,000 mls @ 125 mls/hr IVCONT .Q8H [facility] Last Admin: 05/18/22 03:45 Dose: 125 mls/hr Levofloxacin (Levaquin) 500 mg in 100 mls @ 100 mls/hr IV Q24H [facility] Last Admin: 05/18/22 06:23 Dose: 100 mls/hr Metronidazole (Flagyl) 500 mg in 100 mls @ 100 mls/hr IV Q8H [facility] Ondansetron HCl (Ondansetron Hcl 4 Mg/2 Ml Vial) 4 mg IVPUSH QID PRN PRN Reason: Nausea Oxycodone HCl (Oxycodone Hcl Immed Release 5 Mg Tablet) 5 mg PO Q6H PRN PRN Reason: Pain, Severe (Pain Scale 7-10) Pharmacy Consult (Consult Rx Perform Med Rec) 1 each MISCELLANE ONCE PRN PRN Reason: Consult order Sodium Chloride (0.9 % Sodium Chloride Flush 3 Ml Syringe) 3 ml IVFLUSH QSHIFT [facility] Last Admin: 05/17/22 23:41 Dose: 3 ml Zolpidem Tartrate (Zolpidem Tartrate 5 Mg Tablet) 5 mg PO BEDTIME PRN PRN Reason: Insomnia Home Medications Medication Instructions Recorded Confirmed Last Taken Type No Known Home Meds 05/17/22 05/17/22 Unknown History Physical Exam Vital Signs: Vital Signs: Last Vital Signs Temp 98.4 F 05/18/22 07:09 Pulse 80 05/18/22 07:09 Resp 14 05/18/22 07:09 BP 95/60 05/18/22 07:09 Pulse Ox 95 05/18/22 07:09 O2 Del Method 05/18/22 07:09 BMI result Body Mass Index 25.7 Const: General: cooperative and no acute distress Nutritional Appearance: well nourished Orientation/consciousness: patient oriented x3 Limitations: no limitations HEENT: Head: Yes normocephalic and Yes atraumatic Ears: hearing grossly normal bilaterally Resp: Effort & Inspection: normal respiratory effort, no audible wheezes, no cough and no respiratory distress Cardio: Jugular venous distension: no JVD GI: Inspection: Yes normal to inspection Palpation (GI): Soft to palpation, Tenderness to palpation present (GI) in the RLQ, at McBurney's point, psoas sign positive and Rovsing's sign positive and No Rebound tenderness present Percussion: Yes tympanic to percussion Auscultation: abnormal bowel sounds Rectal Exam - Male: Yes deferred Skin: Other: Warm, dry, no rash Neuro: General: patient oriented x3 Extrem: General: Yes no clubbing, cyanosis or edema Results Results Labs: Short CBC 05/17/22 05/18/22 Range/Units 19:35 06:03 WBC 17.6 H 15.4 H (4.8-10.8) X10*3/uL Hgb 16.0 15.1 (14.0-18.0) g/dl Hct 46.0 45.9 (42.0-52.0) % Plt Count 182 179 (160-400) X10*3/uL BMP 05/17/22 05/18/22 19:35 06:03 Sodium 135 138 Potassium 3.6 3.7 Chloride 101 101 Carbon Dioxide 26 29 BUN 13 14 Creatinine 1.00 1.08 Calcium 9.3 9.0 Liver Function 05/17/22 Range/Units 19:35 Total Bilirubin 2.9 H (0.0-1.0) mg/dL AST 16 (5-37) U/L ALT 13 (0-40) U/L Alkaline Phosphatase 46 (39-117) U/L Albumin 4.3 (3.5-5.0) g/dL Urine 05/18/22 Range/Units 06:01 Urine Color Dark Yellow Urine Appearance Clear Urine pH 5.5 (5.0-9.0) Ur Specific [place] 1.025 (1.005-1.025) Urine Protein 30 (1+) H (Neg-Trace) mg/dL Urine Glucose (UA) Negative (Negative) mg/dL Assessment and Plan (1) Acute appendicitis: Status: Acute (2) Abdominal abscess: Status: Acute (3) Appendicolith: Status: Acute Plan 62-year-old male patient presenting with a 2 day history of abdominal pain in the right lower quadrant found on CT to have perforated appendicitis with abscess. Patient's initial laboratories revealed elevated WBC and vitals revealed low-grade temp with systolic BP 95. Findings are suggestive of sepsis due to appendicitis. I reviewed the CT abdomen and pelvis which revealed an abscess in the right lower quadrant with associated fecalith. I recommended IR drainage of this abscess with probable interval appendectomy once the inflammation resolves. Should his symptoms worsen however an early appendectomy would be recommended. Patient expressed understanding and agrees with the plan. Continue with Levaquin and Flagyl IV. Recheck labs in a.m.. Quality Stroke Does the patient have a stroke diagnosis?: No VTE Prior VTE?: No VTE Risk Level:: Surgical - moderate VTE Device Contraindication: N/A - Device Ordered VTE Drug Contraindication: Treatment Not Indicated Procedures Date of Service Date of Service: 05/18/22
[2022-05-18 08:04] LABS: INTERNATIONAL NORM RATIO 1.4 (0.9-1.1); Prothrombin Time 16.3 SEC (10.0-13.1)
[2022-05-18] MEDS: 0.9 % Sodium Chloride Flush 3 ML SYRINGE IVFLUSH ×2 (08:10→15:23)
[2022-05-18] MEDS: metroNIDAZOLE/NS 500 MG/100 ML PIGGYBACK 100 MG IV ×3 (08:10→23:14)
--- NOTE | 2022-05-18 09:53 | PC.NURSE ---
pt reporting increased pain that radiates down to the groin area after the diualted, does not want any more pain meds wants to talk to the surgeon and wants to know what is being done at this time, this rn tiagered the surgeon
[2022-05-18] MEDS: oxyCODONE HCl Immed Release 5 MG TABLET PO (10:04)
--- NOTE | 2022-05-18 12:47 | PC.NURSE ---
report given to anupam sharma at [facility]
[2022-05-18] MEDS: iohexoL 350 MG/ML 100 ML INFUS..BTL IV (14:37)
[2022-05-18] MEDS: Diatrizoate Meglumine, Sodium 30 ML SOLUTION PO (14:38)
[2022-05-18] MEDS: Ketorolac Tromethamine 30 MG/ML VIAL 15 MG IVPUSH (15:34)
--- NOTE | 2022-05-18 18:36 | PC.NURSE ---
report given to yesika sharma at [facility]
--- NOTE | 2022-05-18 23:44 | PC.NURSE ---
pt sleeping. chest rise and fall equal and unlabored. call guzmán within reach. able to make needs known. will continue to round..
[2022-05-19] VITALS (11 sets, daily range): BP systolic 102–135; BP diastolic 50–73; PULSE 64–90; RESP 14–18; TEMP 35.7–36.8; O2SAT 96–99
[2022-05-19] MEDS: Ketorolac Tromethamine 30 MG/ML VIAL 15 MG IVPUSH (03:15)
[2022-05-19] MEDS: levoFLOXacin/D5W 500 MG/100 ML PIGGYBACK 100 MG IV (05:16)
--- NOTE | 2022-05-19 05:59 | PC.NURSE ---
pt had a good night last night no issues
[2022-05-19] MEDS: Dextrose 5 % and Lactated Ring 1,000 ML 125 ML IVCONT ×3 (06:01→23:09)
--- NOTE | 2022-05-19 06:26 | PC.NURSE ---
see downtime sheet for nurses notes
[2022-05-19 07:18] LABS: Hematocrit 37.7 % (42.0-52.0); Hemoglobin 12.4 g/dl (14.0-18.0); Mean Corpuscular HGB Conc 32.9 g/dl (31.0-36.0); Mean Corpuscular Hemoglobin 30.5 pg (27.0-33.0); Mean Corpuscular Volume 92.6 fL (80.0-98.0); Mean Platelet Volume 10.2 fL (9.4-12.4); Platelet Count 146 X10*3/uL (160-400); Red Blood Count 4.07 X10*6/uL (4.60-5.80)
[2022-05-19] MEDS: metroNIDAZOLE/NS 500 MG/100 ML PIGGYBACK 100 MG IV ×3 (08:02→22:05)
--- NOTE | 2022-05-19 08:04 | PC.NURSE ---
pt upset about being in room 2 and causing a commotion on the unit about being cold, pt had been given many warm blankets without relief. this nurse opted to clean and put the patient into room 1 for patient comfort. pt to goto the OR between 10-11, short stay has been given report. iv abx currently running per order, will continue to monitor
--- NOTE | 2022-05-19 09:10 | HO.ANESPROP2 ---
[facility] Active Problems Active Problems: All Active Problems (Updated 05/17/22 @ 19:33 by Senia Chase NP) Acute appendicitis (Acute) Abdominal abscess (Acute) Appendicolith (Acute) Family History Family history of problems with anesthesia: No Surgical History Surgical History (Updated 05/18/22 @ 07:47 by Jaskaran Scott MD) H/O inguinal hernia repair History of Problems with Anesthesia: No Social History Social History Smoked in Last 30 Days: No Use of substances other than those prescribed or required for medical reasons: No Advance Directives: No Advance Directives Information Provided: No service: No Current occupational status: disabled Meds Allergies Allergy/AdvReac Type Severity Reaction Status Date / Time acetaminophen Allergy Unknown RASH, ITCHY Verified 05/17/22 16:31 [From Tylenol-Codeine] codeine Allergy Unknown RASH, ITCHY Verified 05/17/22 16:31 [From Tylenol-Codeine] Penicillins Allergy Unknown RASH, ITCHY Verified 05/17/22 16:31 Active Medications: Current Medications Hydromorphone HCl (Hydromorphone Hcl 0.5 Mg/0.5 Ml Syringe) 0.5 mg IVPUSH Q3H PRN; Protocol PRN Reason: Pain, Severe (Pain Scale 7-10) Last Admin: 05/18/22 08:09 Dose: 0.5 mg Dextrose/Lactated Ringer's (D5lr) 1,000 mls @ 125 mls/hr IVCONT .Q8H [facility] Last Admin: 05/19/22 06:01 Dose: 125 mls/hr Levofloxacin (Levaquin) 500 mg in 100 mls @ 100 mls/hr IV Q24H [facility] Last Infusion: 05/19/22 06:24 Dose: Infused Metronidazole (Flagyl) 500 mg in 100 mls @ 100 mls/hr IV Q8H [facility] Last Admin: 05/19/22 08:02 Dose: 100 mls/hr Ketorolac Tromethamine (Ketorolac Tromethamine 30 Mg/Ml Vial) 15 mg IVPUSH Q6H PRN PRN Reason: abdominal pain Last Admin: 05/19/22 03:15 Dose: 15 mg Ondansetron HCl (Ondansetron Hcl 4 Mg/2 Ml Vial) 4 mg IVPUSH QID PRN PRN Reason: Nausea Oxycodone HCl (Oxycodone Hcl Immed Release 5 Mg Tablet) 5 mg PO Q4H PRN PRN Reason: Pain, Moderate (Pain Scale 4-6 Oxycodone HCl (Oxycodone Hcl Immed Release 5 Mg Tablet) 10 mg PO Q4H PRN PRN Reason: Pain, Severe (Pain Scale 7-10) Pharmacy Consult (Consult Rx Perform Med Rec) 1 each MISCELLANE ONCE PRN PRN Reason: Consult order Sodium Chloride (0.9 % Sodium Chloride Flush 3 Ml Syringe) 3 ml IVFLUSH QSHIFT [facility] Last Admin: 05/19/22 07:23 Dose: Not Given Zolpidem Tartrate (Zolpidem Tartrate 5 Mg Tablet) 5 mg PO BEDTIME PRN PRN Reason: Insomnia Home Medications Medication Instructions Recorded Confirmed Last Taken Type No Known Home Meds 05/17/22 05/17/22 Unknown History Exam Exam Date and Time: May 19, 2022 0910 Height,Weight and Vital Signs: Height 5 ft 4 in Weight 68.039 kg Last Vital Signs Temp 96.2 F L 05/19/22 09:01 Pulse 64 05/19/22 09:01 Resp 14 05/19/22 09:01 BP 102/63 05/19/22 09:01 Pulse Ox 97 05/19/22 09:01 O2 Del Method 05/19/22 09:01 Pertinent Lab Results Pertinent Lab Results: Laboratory Tests 05/17/22 05/17/22 05/17/22 19:35 19:35 19:35 WBC 17.6 H RBC 5.21 Hgb 16.0 Hct 46.0 MCV 88.3 MCH 30.7 MCHC 34.8 RDW 12.0 Plt Count 182 MPV 10.1 Immature Gran % (Auto) 0.3 Neut % (Auto) 85.9 H Lymph % (Auto) 7.7 L [place] % (Auto) 5.8 Eos % (Auto) 0.1 Baso % (Auto) 0.2 Lymph # (Auto) 1.4 [place] # (Auto) 1.0 Eos # (Auto) 0.0 Baso # (Auto) 0.0 Abs Immat Gran (auto) 0.06 H Absolute Neuts (auto) 15.1 H Absolute Nucleated RBC 0.000 Nucleated RBC % (auto) 0.0 PT INR Sodium 135 Potassium 3.6 Chloride 101 Carbon Dioxide 26 Anion Gap 12 BUN 13 Creatinine 1.00 Estim Creat Clear Calc 64.9 Estimated GFR > 60 Random Glucose 126 H Calcium 9.3 Magnesium 2.2 Total Bilirubin 2.9 H AST 16 ALT 13 Alkaline Phosphatase 46 Total Protein 7.3 Albumin 4.3 Lipase 25 Urine Color Urine Appearance Urine pH Ur Specific [place] Urine Protein Urine Glucose (UA) Urine Ketones Urine Blood Urine Nitrite Ur Leukocyte Esterase Urine RBC Urine WBC Ur Squamous Epith Cells Urine Bacteria Hyaline Casts COVID-19 (ZAHRAA) Negative COVID-19 Clin Com See Note 05/18/22 05/18/22 05/18/22 06:01 06:03 06:03 WBC 15.4 H RBC 5.03 Hgb 15.1 Hct 45.9 MCV 91.3 MCH 30.0 MCHC 32.9 RDW 12.0 Plt Count 179 MPV 10.4 Immature Gran % (Auto) 0.5 H Neut % (Auto) 84.2 H Lymph % (Auto) 9.1 L [place] % (Auto) 5.7 Eos % (Auto) 0.3 Baso % (Auto) 0.2 Lymph # (Auto) 1.4 [place] # (Auto) 0.9 Eos # (Auto) 0.0 Baso # (Auto) 0.0 Abs Immat Gran (auto) 0.08 H Absolute Neuts (auto) 13.0 H Absolute Nucleated RBC 0.000 Nucleated RBC % (auto) 0.0 PT INR Sodium 138 Potassium 3.7 Chloride 101 Carbon Dioxide 29 Anion Gap 12 BUN 14 Creatinine 1.08 Estim Creat Clear Calc 60.1 Estimated GFR > 60 Random Glucose 141 H Calcium 9.0 Magnesium Total Bilirubin AST ALT Alkaline Phosphatase Total Protein Albumin Lipase Urine Color Dark Yellow Urine Appearance Clear Urine pH 5.5 Ur Specific [place] 1.025 Urine Protein 30 (1+) H Urine Glucose (UA) Negative Urine Ketones Negative Urine Blood Small (1+) H Urine Nitrite Negative Ur Leukocyte Esterase Trace H Urine RBC 11-20 H Urine WBC 0-5 Ur Squamous Epith Cells 0-2 Urine Bacteria None Seen Hyaline Casts 0-2 COVID-19 (ZAHRAA) COVID-19 Clin Com 05/18/22 05/19/22 07:50 07:06 WBC 8.0 RBC 4.07 L Hgb 12.4 L Hct 37.7 L MCV 92.6 MCH 30.5 MCHC 32.9 RDW 12.0 Plt Count 146 L MPV 10.2 Immature Gran % (Auto) Neut % (Auto) Lymph % (Auto) [place] % (Auto) Eos % (Auto) Baso % (Auto) Lymph # (Auto) [place] # (Auto) Eos # (Auto) Baso # (Auto) Abs Immat Gran (auto) Absolute Neuts (auto) Absolute Nucleated RBC 0.000 Nucleated RBC % (auto) 0.0 PT 16.3 H INR 1.4 H Sodium Potassium Chloride Carbon Dioxide Anion Gap BUN Creatinine Estim Creat Clear Calc Estimated GFR Random Glucose Calcium Magnesium Total Bilirubin AST ALT Alkaline Phosphatase Total Protein Albumin Lipase Urine Color Urine Appearance Urine pH Ur Specific [place] Urine Protein Urine Glucose (UA) Urine Ketones Urine Blood Urine Nitrite Ur Leukocyte Esterase Urine RBC Urine WBC Ur Squamous Epith Cells Urine Bacteria Hyaline Casts COVID-19 (ZAHRAA) COVID-19 Clin Com Airway Mallampati Class: I TM Dist: >3cm Neck ROM: Full Loose/Missing/Broken Teeth: No Heart: rrr Lungs: clear Assessment and Plan Final Anesthetic Review Family History of Problems with Anesthesia: No History of Problems with Anesthesia: No NPO: Yes ASA Class: I Final Preanesthetic Review: No Changes in Pt Med Stat, Meds/Allgs Chart Reviewed, Consent Obtained/Reviewed and Anes Risks/Benef Reviewed Patient Risk: Low Procedure Risk: Low Anesthetic Plan Anesthetic Plan: GA Disposition: Standard PACU
--- NOTE | 2022-05-19 10:47 | P.CONAN_ITS ---
[facility] Active Problems Active Problems: All Active Problems (Updated 05/17/22 @ 19:33 by Senia Chase NP) Acute appendicitis (Acute) Abdominal abscess (Acute) Appendicolith (Acute) Family History Family history of problems with anesthesia: No Surgical History Surgical History (Updated 05/18/22 @ 07:47 by Jaskaran Scott MD) H/O inguinal hernia repair History of Problems with Anesthesia: No Social History Social History Smoked in Last 30 Days: No Use of substances other than those prescribed or required for medical reasons: No Advance Directives: No Advance Directives Information Provided: No service: No Current occupational status: disabled Meds Allergies Allergy/AdvReac Type Severity Reaction Status Date / Time acetaminophen Allergy Unknown RASH, ITCHY Verified 05/17/22 16:31 [From Tylenol-Codeine] codeine Allergy Unknown RASH, ITCHY Verified 05/17/22 16:31 [From Tylenol-Codeine] Penicillins Allergy Unknown RASH, ITCHY Verified 05/17/22 16:31 Active Medications: Current Medications Hydromorphone HCl (Hydromorphone Hcl 0.5 Mg/0.5 Ml Syringe) 0.5 mg IVPUSH Q3H PRN; Protocol PRN Reason: Pain, Severe (Pain Scale 7-10) Last Admin: 05/18/22 08:09 Dose: 0.5 mg Dextrose/Lactated Ringer's (D5lr) 1,000 mls @ 125 mls/hr IVCONT .Q8H [facility] Last Admin: 05/19/22 06:01 Dose: 125 mls/hr Levofloxacin (Levaquin) 500 mg in 100 mls @ 100 mls/hr IV Q24H [facility] Last Infusion: 05/19/22 06:24 Dose: Infused Metronidazole (Flagyl) 500 mg in 100 mls @ 100 mls/hr IV Q8H [facility] Last Infusion: 05/19/22 09:02 Dose: Infused Ketorolac Tromethamine (Ketorolac Tromethamine 30 Mg/Ml Vial) 15 mg IVPUSH Q6H PRN PRN Reason: abdominal pain Last Admin: 05/19/22 03:15 Dose: 15 mg Ondansetron HCl (Ondansetron Hcl 4 Mg/2 Ml Vial) 4 mg IVPUSH QID PRN PRN Reason: Nausea Oxycodone HCl (Oxycodone Hcl Immed Release 5 Mg Tablet) 5 mg PO Q4H PRN PRN Reason: Pain, Moderate (Pain Scale 4-6 Oxycodone HCl (Oxycodone Hcl Immed Release 5 Mg Tablet) 10 mg PO Q4H PRN PRN Reason: Pain, Severe (Pain Scale 7-10) Pharmacy Consult (Consult Rx Perform Med Rec) 1 each MISCELLANE ONCE PRN PRN Reason: Consult order Sodium Chloride (0.9 % Sodium Chloride Flush 3 Ml Syringe) 3 ml IVFLUSH QSHIFT [facility] Last Admin: 05/19/22 07:23 Dose: Not Given Zolpidem Tartrate (Zolpidem Tartrate 5 Mg Tablet) 5 mg PO BEDTIME PRN PRN Reason: Insomnia Home Medications Medication Instructions Recorded Confirmed Last Taken Type No Known Home Meds 05/17/22 05/17/22 Unknown History Exam Exam Date and Time: May 19, 2022 1047 Height,Weight and Vital Signs: Height 5 ft 4 in Weight 68.039 kg Last Vital Signs Temp 96.2 F L 05/19/22 09:01 Pulse 64 05/19/22 09:01 Resp 14 05/19/22 09:01 BP 102/63 05/19/22 09:01 Pulse Ox 97 05/19/22 09:01 O2 Del Method 05/19/22 09:01 Pertinent Lab Results Pertinent Lab Results: Laboratory Tests 05/17/22 05/17/22 05/17/22 19:35 19:35 19:35 WBC 17.6 H RBC 5.21 Hgb 16.0 Hct 46.0 MCV 88.3 MCH 30.7 MCHC 34.8 RDW 12.0 Plt Count 182 MPV 10.1 Immature Gran % (Auto) 0.3 Neut % (Auto) 85.9 H Lymph % (Auto) 7.7 L [place] % (Auto) 5.8 Eos % (Auto) 0.1 Baso % (Auto) 0.2 Lymph # (Auto) 1.4 [place] # (Auto) 1.0 Eos # (Auto) 0.0 Baso # (Auto) 0.0 Abs Immat Gran (auto) 0.06 H Absolute Neuts (auto) 15.1 H Absolute Nucleated RBC 0.000 Nucleated RBC % (auto) 0.0 PT INR Sodium 135 Potassium 3.6 Chloride 101 Carbon Dioxide 26 Anion Gap 12 BUN 13 Creatinine 1.00 Estim Creat Clear Calc 64.9 Estimated GFR > 60 Random Glucose 126 H Calcium 9.3 Magnesium 2.2 Total Bilirubin 2.9 H AST 16 ALT 13 Alkaline Phosphatase 46 Total Protein 7.3 Albumin 4.3 Lipase 25 Urine Color Urine Appearance Urine pH Ur Specific [place] Urine Protein Urine Glucose (UA) Urine Ketones Urine Blood Urine Nitrite Ur Leukocyte Esterase Urine RBC Urine WBC Ur Squamous Epith Cells Urine Bacteria Hyaline Casts COVID-19 (ZAHRAA) Negative COVID-19 Clin Com See Note 05/18/22 05/18/22 05/18/22 06:01 06:03 06:03 WBC 15.4 H RBC 5.03 Hgb 15.1 Hct 45.9 MCV 91.3 MCH 30.0 MCHC 32.9 RDW 12.0 Plt Count 179 MPV 10.4 Immature Gran % (Auto) 0.5 H Neut % (Auto) 84.2 H Lymph % (Auto) 9.1 L [place] % (Auto) 5.7 Eos % (Auto) 0.3 Baso % (Auto) 0.2 Lymph # (Auto) 1.4 [place] # (Auto) 0.9 Eos # (Auto) 0.0 Baso # (Auto) 0.0 Abs Immat Gran (auto) 0.08 H Absolute Neuts (auto) 13.0 H Absolute Nucleated RBC 0.000 Nucleated RBC % (auto) 0.0 PT INR Sodium 138 Potassium 3.7 Chloride 101 Carbon Dioxide 29 Anion Gap 12 BUN 14 Creatinine 1.08 Estim Creat Clear Calc 60.1 Estimated GFR > 60 Random Glucose 141 H Calcium 9.0 Magnesium Total Bilirubin AST ALT Alkaline Phosphatase Total Protein Albumin Lipase Urine Color Dark Yellow Urine Appearance Clear Urine pH 5.5 Ur Specific [place] 1.025 Urine Protein 30 (1+) H Urine Glucose (UA) Negative Urine Ketones Negative Urine Blood Small (1+) H Urine Nitrite Negative Ur Leukocyte Esterase Trace H Urine RBC 11-20 H Urine WBC 0-5 Ur Squamous Epith Cells 0-2 Urine Bacteria None Seen Hyaline Casts 0-2 COVID-19 (ZAHRAA) COVID-I-lighting Com 05/18/22 05/19/22 07:50 07:06 WBC 8.0 RBC 4.07 L Hgb 12.4 L Hct 37.7 L MCV 92.6 MCH 30.5 MCHC 32.9 RDW 12.0 Plt Count 146 L MPV 10.2 Immature Gran % (Auto) Neut % (Auto) Lymph % (Auto) [place] % (Auto) Eos % (Auto) Baso % (Auto) Lymph # (Auto) [place] # (Auto) Eos # (Auto) Baso # (Auto) Abs Immat Gran (auto) Absolute Neuts (auto) Absolute Nucleated RBC 0.000 Nucleated RBC % (auto) 0.0 PT 16.3 H INR 1.4 H Sodium Potassium Chloride Carbon Dioxide Anion Gap BUN Creatinine Estim Creat Clear Calc Estimated GFR Random Glucose Calcium Magnesium Total Bilirubin AST ALT Alkaline Phosphatase Total Protein Albumin Lipase Urine Color Urine Appearance Urine pH Ur Specific [place] Urine Protein Urine Glucose (UA) Urine Ketones Urine Blood Urine Nitrite Ur Leukocyte Esterase Urine RBC Urine WBC Ur Squamous Epith Cells Urine Bacteria Hyaline Casts COVID-19 (ZAHRAA) COVID-19 Clin Com Airway Mallampati Class: III TM Dist: >3cm Loose/Missing/Broken Teeth: No (Rrr) Heart: rrr Lungs: clear Assessment and Plan Final Anesthetic Review Family History of Problems with Anesthesia: No History of Problems with Anesthesia: No ASA Class: I and Emergency Final Preanesthetic Review: No Changes in Pt Med Stat, Meds/Allgs Chart Reviewed, Consent Obtained/Reviewed and Anes Risks/Benef Reviewed Patient Risk: Low Procedure Risk: Low Anesthetic Plan Anesthetic Plan: GA Disposition: Standard PACU
--- NOTE | 2022-05-19 11:05 | PC.NURSE ---
patient taken to the OR
--- NOTE | 2022-05-19 13:43 | P.OP_ITS ---
Operative Note Operative Note Date of Service: 05/19/22 Narrative: Preoperative diagnosis: Acute appendicitis with perforation and abscess Postoperative diagnosis: Same Procedure: Laparoscopic appendectomy, drainage of abscess Surgeon: Jaskaran Scott MD [employer]: Crystal Toscano PA-C Anesthesia: General endotracheal Indications for procedure: 62-year-old male patient presenting with 3 day history of abdominal pain in the right lower quadrant found on CT to have yamil dence of a perforated appendicitis with an abscess. Patient was deemed not to be a candidate for IR drainage therefore he presents today for laparoscopic or possible open appendectomy. Operative findings: Significant phlegmon and abscess noted in the right upper quadrant with markedly inflamed appendix. Abscess drained and cultures obtained. Specimen sent to pathology for immediate gross to confirm appendix. Verbal report confirmed appendix within the specimen. Specimen: Appendix, wound culture from abscess cavity Estimated blood loss: 15 mL Complications: None Procedure details: Patient was brought to the OR and placed in a supine position. After administering general anesthesia the patient's abdomen was prepped with ChloraPrep and draped in a sterile fashion. A surgical time-out was called the consent confirmed. Patient received preoperative antibiotics and Venodyne boots were in place. Local anesthesia consisting of 0.5% Sensorcaine was infiltrated in a periumbilical region. A small incision was made just below the umbilicus in a transverse fashion. A Veress needle was then inserted while elevating the abdominal cavity with towel clips. After a positive drop test the abdomen was insufflated to a pressure of 15 mmHg. The Veress needle was removed and a 5 mm port inserted under direct vision. The abdomen was then explored. Patient was placed in a Trendelenburg position. A 2nd 5 mm trocar was placed in the lower midline under direct vision. A 12 mm trocar was then placed in the left lower quadrant. The patient was then rotated to the left and the cecum identified in the right lower quadrant. Cecum was noted to be tethered upward towards the right upper quadrant due to the appendicitis. The cecum was mobilized along the final sidewall and the junction with the terminal ileum identified. The appendix was not immediately identified however due to this significant phlegmon that had developed in the right upper quadrant. As the cecum was completely mobilized an area of firm tissue was identified and initially thought to be a appendix. This was mobilized using the LigaSure however was clear this was part of the inflammatory reaction surrounding the appendicitis. The cecum was further mobilized an abscess cavity identified. The abscess was evacuated of white pus in cultures of this fluid obtained. The surrounding phlegmon was further mobilized to reveal a structure which appeared to be remnants of a ruptured appendix. The appendix was mobilized again using the LigaSure down to the base of the cecum. A Endo-VIKTORIYA stapler 30 mm purple was used to divide the base of the appendix. This was subsequently removed from the abdomen using a Endo-Catch bag. The specimen was examined and was not clearly identified as appendix therefore the specimen was sent for immediate gross evaluation by the pathology department. The specimen was sectioned and a lumen noted within the specimen consistent with the appendix. The abdomen was further examined in the right upper quadrant along the area of inflammation. No further remnants of appendix could be identified. The wounds were then thoroughly irrigated with saline solution. A 7 Dennis-Esposito drain was then left in place and brought out through the lower abdominal trocar incision. This was secured to the skin using a 4-0 nylon suture. The drain was connected to a bulb sucti on. Drain was left in place at the right upper quadrant. Trocars were then removed and the CO2 evacuated. Fascia was closed at the left lower quadrant incision using a [id number] 0 Polysorb suture. Skin was closed in all incisions using a subcuticular 4-0 Polysorb suture. Steri-Strips, 2 x 2 gauze and Tegaderm were then applied. The patient tolerated the procedure well. Sponge, instrument, and needle counts reported as correct. The patient was transferred to PACU in stable condition.
[2022-05-19] MEDS: oxyCODONE HCl Immed Release 5 MG TABLET 10 MG PO ×2 (17:06→21:08)
[2022-05-19] MEDS: 0.9 % Sodium Chloride Flush 3 ML SYRINGE IVFLUSH (22:06)
[2022-05-20 04:00] VITALS: BP 124/63; PULSE 90; RESP 18; TEMP 36.3; O2SAT 97
[2022-05-20] MEDS: oxyCODONE HCl Immed Release 5 MG TABLET 10 MG PO ×4 (04:43→23:39)
[2022-05-20] MEDS: levoFLOXacin/D5W 500 MG/100 ML PIGGYBACK 100 MG IV (05:25)
[2022-05-20] MEDS: metroNIDAZOLE/NS 500 MG/100 ML PIGGYBACK 100 MG IV ×3 (06:32→22:56)
--- NOTE | 2022-05-20 07:16 | HO.POSTANES ---
Post Anesthesia Evaluation Post Anesthesia Evaluation Vital Signs: Vital Signs Temp Pulse Resp BP Pulse Ox O2 Del Method 05/20/22 04:00 97.4 F 90 18 124/63 97 Room Air 05/19/22 23:50 98.2 F 90 18 135/73 96 Room Air 05/19/22 20:00 97.5 F 90 18 132/71 96 Room Air Anesthesia: General Endotracheal-GETA Mental Status: Awake Pain Control: Satisfactory Nausea/Vomiting: None Hydration: Adequate Anesthesia-Related Issues: No Anes. Related Issues
[2022-05-20] MEDS: 0.9 % Sodium Chloride Flush 3 ML SYRINGE IVFLUSH ×3 (07:32→22:56)
[2022-05-20 08:00] VITALS: BP 138/73; PULSE 85; RESP 19; TEMP 37.1; O2SAT 96
[2022-05-20] MEDS: Dextrose 5 % and Lactated Ring 1,000 ML 125 ML IVCONT (10:34)
--- NOTE | 2022-05-20 10:56 | P.PNGS_ITS ---
Subjective Subjective Date of Service: 05/20/22 <Crystal Toscano PA-C - Last Filed: 05/20/22 11:01> 05/20/22 <Jaskaran Scott MD - Last Filed: 05/20/22 14:45> Interval history: Feels much better this morning. Has mild right sided pain but is comfortable with analgesics. OOB and ambulating without difficulty. Tolerating solid diet. <Crystal Toscano PA-C - Last Filed: 05/20/22 11:01> Physical Exam 2 Vital Signs: Vital Signs: Last Vital Signs Temp 98.8 F 05/20/22 08:00 Pulse 85 05/20/22 08:00 Resp 19 05/20/22 08:00 BP 138/73 05/20/22 08:00 Pulse Ox 96 05/20/22 08:00 O2 Del Method 05/20/22 08:00 O2 Flow Rate 2 05/19/22 13:51 BMI result Body Mass Index 25.7 <Crystal Toscano PA-C - Last Filed: 05/20/22 11:01> Const: General: comfortable, no acute distress and alert <Crystal Toscnao PA-C - Last Filed: 05/20/22 11:01> Orientation/consciousness: patient oriented x3 <TRACIE Bernal Last Filed: 05/20/22 11:01> Resp: Effort & Inspection: normal respiratory effort <Crystal Toscano PA-C - Last Filed: 05/20/22 11:01> Cardio: Rate: regular rate <TRACIE Bernal Last Filed: 05/20/22 11:01> GI: Other: BJ with serosanguineous output <TRACIE Bernal Last Filed: 05/20/22 11:01> Inspection: No distended and Yes incision (dressings intact) <TRACIE Bernal Last Filed: 05/20/22 11:01> Palpation (GI): Soft to palpation, Tenderness to palpation present (GI) (right sided, mild), no guarding and not rigid <Crystal Toscano PA-C - Last Filed: 05/20/22 11:01> Percussion: Yes normal to percussion <Crystal Toscano PA-C - Last Filed: 05/20/22 11:01> Skin: General skin exam: no rashes or lesions noted <TRACIE Bernal Last Filed: 05/20/22 11:01> Neuro: General: patient oriented x3 <TRACIE Bernal Last Filed: 05/20/22 11:01> Extrem: General: Yes no clubbing, cyanosis or edema <TRACIE Bernal Last Filed: 05/20/22 11:01> Objective Data Active Medications Hydromorphone HCl (Hydromorphone Hcl 0.5 Mg/0.5 Ml Syringe) 0.5 mg IVPUSH Q3H PRN; Protocol PRN Reason: Pain, Severe (Pain Scale 7-10) Last Admin: 05/18/22 08:09 Dose: 0.5 mg Documented By: BECKI Dextrose/Lactated Ringer's (D5lr) 1,000 mls @ 125 mls/hr IVCONT .Q8H [facility] Last Admin: 05/20/22 10:34 Dose: 125 mls/hr Documented By: PRAKASH Levofloxacin (Levaquin) 500 mg in 100 mls @ 100 mls/hr IV Q24H [facility] Last Infusion: 05/20/22 06:33 Dose: 0 mls/hr Documented By: JESSICA Metronidazole (Flagyl) 500 mg in 100 mls @ 100 mls/hr IV Q8H [facility] Last Infusion: 05/20/22 07:35 Dose: 0 mls/hr Documented By: PRAKASH Ketorolac Tromethamine (Ketorolac Tromethamine 30 Mg/Ml Vial) 15 mg IVPUSH Q6H PRN PRN Reason: abdominal pain Last Admin: 05/19/22 03:15 Dose: 15 mg Documented By: KIM Ondansetron HCl (Ondansetron Hcl 4 Mg/2 Ml Vial) 4 mg IVPUSH QID PRN PRN Reason: Nausea Oxycodone HCl (Oxycodone Hcl Immed Release 5 Mg Tablet) 5 mg PO Q4H PRN PRN Reason: Pain, Moderate (Pain Scale 4-6 Oxycodone HCl (Oxycodone Hcl Immed Release 5 Mg Tablet) 10 mg PO Q4H PRN PRN Reason: Pain, Severe (Pain Scale 7-10) Last Admin: 05/20/22 04:43 Dose: 10 mg Documented By: JESSICA Pharmacy Consult (Consult Rx Perform Med Rec) 1 each MISCELLANE ONCE PRN PRN Reason: Consult order Sodium Chloride (0.9 % Sodium Chloride Flush 3 Ml Syringe) 3 ml IVFLUSH QSHIFT [facility] Last Admin: 05/20/22 07:32 Dose: 3 ml Documented By: PRAKASH Zolpidem Tartrate (Zolpidem Tartrate 5 Mg Tablet) 5 mg PO BEDTIME PRN PRN Reason: Insomnia <Crystal Toscano PA-C - Last Filed: 05/20/22 11:01> Labs CBC & Chem 7: : 05/19/22 07:06 05/18/22 06:03 <Crystal Toscano PA-C - Last Filed: 05/20/22 11:01> Microbiology Microbiology Results: Microbiology 05/19/22 12:03 Gram Stain - Final Abscess Appendiceal Routine Culture - Preliminary Culture in progress. 05/17/22 20:17 Blood Culture - Preliminary Blood - Venous No growth after 48 hours. 05/17/22 20:17 Blood Culture - Preliminary Blood - Venous No growth after 48 hours. <Crystal Toscano PA-C - Last Filed: 05/20/22 11:01> Procedures Date of Service Date of Service: 05/20/22 <TRACIE Bernal Last Filed: 05/20/22 11:01> Progress Note: A&P Assessment and plan (1) Acute appendicitis with perforation and peritoneal abscess: Status: Acute <TRACIE Bernal Last Filed: 05/20/22 11:01> (2) S/P laparoscopic appendectomy: Status: Acute <TRACIE Bernal Last Filed: 05/20/22 11:01> Assessment and Plan: 62 year old male admitted with perforated appendicitis with abscess now POD #1 s/p lap appy with abscess drainage. He was found to have significant phlegmon and abscess in the right upper quadrant with markedly inflamed appendix. He is doing well post op. VSS. Abd exam is benign with appropriate post op tenderness, dressings intact. BJ output nonpurulent. Will need to remain inpatient for IV antibiotics for 1-2 more days. Await abscess cultures. Cont IV flagyl/levaquin for now. Keep BJ in place. Encouraged ambulation/IS use. Patient comfortable with plan. <Crystal Toscano PA-C - Last Filed: 05/20/22 11:01> 62 year old male admitted with perforated appendicitis with abscess now POD #1 s/p lap appy with abscess drainage. He was found to have significant phlegmon and abscess in the right upper quadrant with markedly inflamed appendix. He is doing well post op. VSS. Abd exam is benign with appropriate post op tenderness, dressings intact. BJ output nonpurulent. Will need to remain inpatient for IV antibiotics for 1-2 more days. Await abscess cultures. Cont IV flagyl/levaquin for now. Keep BJ in place. Encouraged ambulation/IS use. Patient comfortable with plan. Agree with the above assessment and plan. Patient is doing quite well pod 1 following laparoscopic appendectomy with drainage of abscess. BJ is serosanguineous. Patient is tolerating regular diet without nausea or vomiting. Anticipate removing BJ tomorrow if no change in output consistency. Will need oral antibiotics upon discharge as well. <Jaskaran Scott MD - Last Filed: 05/20/22 14:45> Time Spent With Patient Time: Total time spent is greater than 50% in coordination of care (as documented) at patient's floor/unit and/or counseling patient: <Crystal Toscano PA-C - Last Filed: 05/20/22 11:01> Quality Stroke Does the patient have a stroke diagnosis?: No <Crystal Toscano PA-C - Last Filed: 05/20/22 11:01> VTE Prior VTE?: No <Crystal Toscano PA-C - Last Filed: 05/20/22 11:01> VTE Risk Level:: Surgical - moderate <TRACIE Bernal Last Filed: 05/20/22 11:01> VTE Device Contraindication: N/A - Device Ordered <Crystal Toscano PA-C - Last Filed: 05/20/22 11:01> VTE Drug Contraindication: Treatment Not Indicated <Crystal Toscano PA-C - Last Filed: 05/20/22 11:01>
[2022-05-20 12:00] VITALS: BP 133/77; PULSE 90; RESP 18; TEMP 36.5; O2SAT 95
[2022-05-20 15:35] VITALS: BP 117/64; PULSE 88; RESP 20; TEMP 37; O2SAT 96
[2022-05-20 19:18] VITALS: BP 140/78; PULSE 88; RESP 20; TEMP 36.8; O2SAT 96
[2022-05-20 23:17] VITALS: BP 134/78; PULSE 81; RESP 17; TEMP 37.7; O2SAT 98
[2022-05-20] MEDS: Zolpidem Tartrate 5 MG TABLET PO (23:53)
[2022-05-21] MEDS: levoFLOXacin/D5W 500 MG/100 ML PIGGYBACK 100 MG IV (05:20)
[2022-05-21] MEDS: oxyCODONE HCl Immed Release 5 MG TABLET 10 MG PO ×2 (05:29→14:41)
[2022-05-21] MEDS: metroNIDAZOLE/NS 500 MG/100 ML PIGGYBACK 100 MG IV ×3 (06:28→23:04)
[2022-05-21 07:52] VITALS: BP 127/59; PULSE 86; RESP 18; TEMP 37.1; O2SAT 96
--- NOTE | 2022-05-21 08:20 | P.PNGS_ITS ---
Subjective Subjective Date of Service: 05/21/22 Interval history: Continues to feel much better but c/o pain at right side. Relieved by analgesics. Tolerating solid diet. Would like to stay one more day. Physical Exam Vital Signs: Vital Signs: Last Vital Signs Temp 98.8 F 05/21/22 07:52 Pulse 86 05/21/22 07:52 Resp 18 05/21/22 07:52 BP 127/59 L 05/21/22 07:52 Pulse Ox 96 05/21/22 07:52 O2 Del Method 05/21/22 07:52 O2 Flow Rate 2 05/19/22 13:51 BMI result Body Mass Index 25.7 Const: General: comfortable, no acute distress and alert Orientation/consciousness: patient oriented x3 Resp: Effort & Inspection: normal respiratory effort GI: Other: BJ drain with serosanguineous output Inspection: No distended and Yes incision (dressings intact) Palpation (GI): Soft to palpation, Tenderness to palpation present (GI) (mild right side), no guarding and not rigid Percussion: Yes normal to percussion Skin: General skin exam: no rashes or lesions noted Neuro: General: patient oriented x3 and moves all extremities Objective Data Active Medications Hydromorphone HCl (Hydromorphone Hcl 0.5 Mg/0.5 Ml Syringe) 0.5 mg IVPUSH Q3H PRN; Protocol PRN Reason: Pain, Severe (Pain Scale 7-10) Last Admin: 05/18/22 08:09 Dose: 0.5 mg Documented By: BECKI Levofloxacin (Levaquin) 500 mg in 100 mls @ 100 mls/hr IV Q24H [facility] Last Infusion: 05/21/22 06:36 Dose: 0 mls/hr Documented By: JESSICA Metronidazole (Flagyl) 500 mg in 100 mls @ 100 mls/hr IV Q8H [facility] Last Admin: 05/21/22 06:28 Dose: 100 mls/hr Documented By: JESSICA Ketorolac Tromethamine (Ketorolac Tromethamine 30 Mg/Ml Vial) 15 mg IVPUSH Q6H PRN PRN Reason: abdominal pain Last Admin: 05/19/22 03:15 Dose: 15 mg Documented By: KIM Ondansetron HCl (Ondansetron Hcl 4 Mg/2 Ml Vial) 4 mg IVPUSH QID PRN PRN Reason: Nausea Oxycodone HCl (Oxycodone Hcl Immed Release 5 Mg Tablet) 5 mg PO Q4H PRN PRN Reason: Pain, Moderate (Pain Scale 4-6 Oxycodone HCl (Oxycodone Hcl Immed Release 5 Mg Tablet) 10 mg PO Q4H PRN PRN Reason: Pain, Severe (Pain Scale 7-10) Last Admin: 05/21/22 05:29 Dose: 10 mg Documented By: JESSICA Pharmacy Consult (Consult Rx Perform Med Rec) 1 each MISCELLANE ONCE PRN PRN Reason: Consult order Sodium Chloride (0.9 % Sodium Chloride Flush 3 Ml Syringe) 3 ml IVFLUSH QSHIFT [facility] Last Admin: 05/20/22 22:56 Dose: 3 ml Documented By: JESSICA Zolpidem Tartrate (Zolpidem Tartrate 5 Mg Tablet) 5 mg PO BEDTIME PRN PRN Reason: Insomnia Last Admin: 05/20/22 23:53 Dose: 5 mg Documented By: JESSICA Labs CBC & Chem 7: 05/19/22 07:06 05/18/22 06:03 Microbiology Microbiology Results: Microbiology 05/19/22 12:03 Gram Stain - Final Abscess Appendiceal Routine Culture - Preliminary Culture in progress. Procedures Date of Service Date of Service: 05/21/22 Progress Note: A&P Assessment and plan (1) S/P laparoscopic appendectomy: Status: Acute (2) Acute appendicitis with perforation and peritoneal abscess: Status: Acute Plan 62 year old male admitted with perforated appendicitis with abscess now POD #2 s/p lap appy with abscess drainage. He was found to have significant phlegmon and abscess in the right upper quadrant with markedly inflamed appendix. He continues to do well post op. VSS. Abd exam remains benign with dressings intact. BJ output nonpurulent, will remove later today. Cont IV abx. Await abscess cultures. Will plan for discharge tomorrow if continues to do well. Patient comfortable with plan. Time Spent With Patient Time: Total time spent is greater than 50% in coordination of care (as documented) at patient's floor/unit and/or counseling patient: Quality Stroke Does the patient have a stroke diagnosis?: No VTE Prior VTE?: No VTE Risk Level:: Surgical - moderate VTE Device Contraindication: N/A - Device Ordered VTE Drug Contraindication: Treatment Not Indicated
[2022-05-21] MEDS: 0.9 % Sodium Chloride Flush 3 ML SYRINGE IVFLUSH ×3 (08:46→23:06)
[2022-05-21] MEDS: oxyCODONE HCl Immed Release 5 MG TABLET PO (09:37)
--- NOTE | 2022-05-21 12:38 | MHC.CM.PN ---
EMR REVIEWED, PT S/P DAY 2 P/O LAP APPY W/ABSCESS, PT WILL REMAIN INPT FOR IV ABX AND BJ DRAIN REMOVAL, ANTIC PT WILL D/C HOME TUESDAY 05/22 HOME W/RESUMP OF SERVICES.
[2022-05-21 15:21] VITALS: BP 137/81; PULSE 86; RESP 16; TEMP 36.6; O2SAT 96
[2022-05-21 19:37] VITALS: BP 141/83; PULSE 84; RESP 17; TEMP 36.6; O2SAT 96
[2022-05-22 04:00] VITALS: BP 133/75; PULSE 79; RESP 16; TEMP 37; O2SAT 96
[2022-05-22] MEDS: oxyCODONE HCl Immed Release 5 MG TABLET 10 MG PO ×2 (05:11→08:59)
[2022-05-22] MEDS: levoFLOXacin/D5W 500 MG/100 ML PIGGYBACK 100 MG IV (05:41)
[2022-05-22] MEDS: metroNIDAZOLE/NS 500 MG/100 ML PIGGYBACK 100 MG IV (06:58)
[2022-05-22 07:36] VITALS: BP 125/76; PULSE 79; RESP 15; TEMP 37.1; O2SAT 94
--- NOTE | 2022-05-22 09:11 | PM.PNGS ---
Subjective Subjective Date of Service: 05/22/22 Interval history: Overall patient feels improved. Continues to have some mild abdominal pain. He tolerated regular diet without nausea or vomiting. He is eager to go home. Physical Exam Vital Signs: Vital Signs: Last Vital Signs Temp 98.7 F 05/22/22 07:36 Pulse 79 05/22/22 07:36 Resp 15 05/22/22 07:36 BP 125/76 05/22/22 07:36 Pulse Ox 94 05/22/22 07:36 O2 Del Method 05/22/22 07:36 O2 Flow Rate 2 05/19/22 13:51 BMI result Body Mass Index 25.7 Const: General: no acute distress and well developed Nutritional Appearance: well nourished Orientation/consciousness: patient oriented x3 Limitations: no limitations Resp: Other: Breathing comfortably on room air, no respiratory distress Effort & Inspection: normal respiratory effort GI: Other: soft, nondistended, incisions are clean, dry, and intact. BJ with serous fluid without purulent output. BJ removed dry sterile dressings applied. Skin: Other: Warm, dry, no rash Neuro: General: patient oriented x3 Extrem: Other: no pedal edema, normal capillary refill Objective Data Active Medications Hydromorphone HCl (Hydromorphone Hcl 0.5 Mg/0.5 Ml Syringe) 0.5 mg IVPUSH Q3H PRN; Protocol PRN Reason: Pain, Severe (Pain Scale 7-10) Last Admin: 05/18/22 08:09 Dose: 0.5 mg Documented By: BECKI Levofloxacin (Levaquin) 500 mg in 100 mls @ 100 mls/hr IV Q24H [facility] Last Infusion: 05/22/22 06:49 Dose: 0 mls/hr Documented By: JLUIS Metronidazole (Flagyl) 500 mg in 100 mls @ 100 mls/hr IV Q8H [facility] Last Admin: 05/22/22 06:58 Dose: 100 mls/hr Documented By: JLUIS Ketorolac Tromethamine (Ketorolac Tromethamine 30 Mg/Ml Vial) 15 mg IVPUSH Q6H PRN PRN Reason: abdominal pain Last Admin: 05/19/22 03:15 Dose: 15 mg Documented By: KIM Ondansetron HCl (Ondansetron Hcl 4 Mg/2 Ml Vial) 4 mg IVPUSH QID PRN PRN Reason: Nausea Oxycodone HCl (Oxycodone Hcl Immed Release 5 Mg Tablet) 5 mg PO Q4H PRN PRN Reason: Pain, Moderate (Pain Scale 4-6 Last Admin: 05/21/22 09:37 Dose: 5 mg Documented By: KEE Oxycodone HCl (Oxycodone Hcl Immed Release 5 Mg Tablet) 10 mg PO Q4H PRN PRN Reason: Pain, Severe (Pain Scale 7-10) Last Admin: 05/22/22 08:59 Dose: 10 mg Documented By: BECKI Pharmacy Consult (Consult Rx Perform Med Rec) 1 each MISCELLANE ONCE PRN PRN Reason: Consult order Sodium Chloride (0.9 % Sodium Chloride Flush 3 Ml Syringe) [address] [facility] Last Admin: 05/22/22 08:34 Dose: Not Given Documented By: BK Non-Admin Reason: IV Running Zolpidem Tartrate (Zolpidem Tartrate 5 Mg Tablet) 5 mg PO BEDTIME PRN PRN Reason: Insomnia Last Admin: 05/20/22 23:53 Dose: 5 mg Documented By: JESSICA Labs CBC & Chem 7: 05/19/22 07:06 05/18/22 06:03 Microbiology Microbiology Results: Microbiology 05/19/22 12:03 Gram Stain - Final Abscess Appendiceal Routine Culture - Final Escherichia coli Pseudomonas species Procedures Date of Service Date of Service: 05/22/22 Progress Note: A&P Assessment and plan (1) Acute appendicitis with perforation and peritoneal abscess: Status: Acute (2) S/P laparoscopic appendectomy: Status: Acute Plan 62-year-old male status post laparoscopic appendectomy for acute perforated appendicitis with abscess. He is now pod 2 following laparoscopic appendectomy. He tolerated the procedure well and his wounds are healing nicely. There is no evidence of ongoing infection. He will be discharged to home on oral antibiotics, Levaquin and Flagyl for the next 7 days. He should follow up in 1 week for wound examination. Time Spent With Patient Time: Total time spent is greater than 50% in coordination of care (as documented) at patient's floor/unit and/or counseling patient: Quality Stroke Does the patient have a stroke diagnosis?: No VTE Prior VTE?: No VTE Risk Level:: Surgical - moderate VTE Device Contraindication: N/A - Device Ordered VTE Drug Contraindication: Treatment Not Indicated
--- NOTE | 2022-05-22 09:55 | MHC.CM.PN ---
PT WILL DC HOME TODAY WITH NO NEW SERVICES PT TO ARRANGE TRANSPORT
--- NOTE | 2022-05-24 10:04 | PM.DS ---
DS: Providers Provider Date of Service: 05/22/22 Date of admission: 05/17/22 19:36 Date of discharge: 05/22/22 Primary care physician: Bogdan Trujillo MD Attending physician on admission: Jaskaran Scott Consults: 05/17/22 19:27 Consult to General Surgery Stat Consulting Provider: Jaskaran Scott Reason for consultation: Appendicitis, abdominal abscess Attending physician on discharge: Jaskaran Scott DS: Diagnosis Discharge Diagnosis (1) Acute appendicitis with perforation and peritoneal abscess: Status: Acute (2) S/P laparoscopic appendectomy: Status: Acute DS: Summary Hospital Course Hospital Course: HPI FROM DAY OF ADMISSION: John John is a 62 year old male presenting with complaints of abdominal pain in the right lower quadrant of 2 days duration. The pain was associated with fever and chills, anorexia, and constipation. He denied nausea or vomiting. Pain began in the right upper quadrant and gradually radiated to the right lower quadrant. He denied a previous history of similar symptoms. He subsequently presented to the emergency department and was noted to be tender in the right lower quadrant. CT abdomen and pelvis was obtained and revealed a fluid collection in the right lower quadrant with fecalith nearby suggestive of a perforated appendicitis with abscess formation. Laboratories revealed WBC of 17,000. HOSPITAL COURSE: He was admitted to the surgical service for further management of the perforated appendicitis with abscess formation. He was kept NPO, on IVF and started on IV flagyl and levaquin. Repeat CT with contrast performed prior to attempted IR drainage and the site of possible large abscess actually is part of bowel with a small fluid collection adjacent to the appendix.?IR drainage is no longer required.? It was recommended to proceed with laparoscopic, possible open appendectomy.? After discussion of the procedure, risks, and alternatives, he consents to the surgery and he was added onto the operative schedule for the following morning. On 05/19/22, a laparoscopic appendectomy, drainage of abscess was performed by Dr. Scott without complication. He was found to have significant phlegmon and abscess in the right upper quadrant with markedly inflamed appendix. The patient tolerated the procedure well and was admitted back to the medical/surgical floor for observation. He had an uncomplicated recovery course and did well post operatively. He remained inpatient for 3 days post operatively for IV antibiotics. On the day of discharge, he was tolerating a solid diet. His pain was well controlled on PO analgesics. His abdomen was benign with appropriate post op tenderness and clean incisions. His BJ output was scanty and nonpurulent and therefore the drain was removed. He felt ready for discharge. He was discharged to home on PO levaquin/flagyl for 7 days. He is to follow up with Dr. Scott in 1 week in the office. Status at Discharge Functional status at discharge: independent ambulation Overall status at discharge: patient is progressing back to baseline Time Spent with Patient Time attestation: Total time spent providing and/or coordinating discharge services: Discharge coordination time: Greater than 30 minutes Quality: Safe Use of Opioids Does Pt have an Active Cancer Diagnosis on the Problem List?: No Quality: Stroke Does the patient have a stroke diagnosis?: No Physical Exam Vital Signs: Vital Signs: Last Vital Signs Temp 98.7 F 05/22/22 07:36 Pulse 79 05/22/22 07:36 Resp 15 05/22/22 07:36 BP 125/76 05/22/22 07:36 Pulse Ox 94 05/22/22 07:36 O2 Del Method 05/22/22 07:36 O2 Flow Rate 2 05/19/22 13:51 BMI result Body Mass Index 25.7 Const: General: comfortable, no acute distress and alert Orientation/consciousness: patient oriented x3 Resp: Effort & Inspection: normal respiratory effort GI: Other: BJ output serosanguineous and drain removed Inspection: No distended and Yes incision (clean) Palpation (GI): Soft to palpation, Tenderness to palpation present (GI) (mild, right sided), no guarding and not rigid Skin: General skin exam: no rashes or lesions noted Neuro: General: patient oriented x3 and moves all extremities DS: Data Data Completed and Pending Completed studies during hospitalization [Text1]: 05/19/22 12:58 Surgical [PTH] Routine Vermiform appendix, appendectomy: Suppurative and hemorrhagic appendicitis and periappendicitis. Discharge Plan Discharge Anticipated Discharge Date/Time: 05/22/22 11:54 Patient Disposition: Home, Self-Care Discharge Diagnosis: perforated appendicitis s/p lap appy Referrals: Jaskaran Scott MD [Physician] - 1 Week Bogdan Trujillo MD [Primary Care Provider] - 1 Week Discharge Medications: New oxycodone 5 mg tablet 5 mg PO Q4H PRN (Reason: pain (scale score 7-10)) Qty: 24 0RF Rx Instructions: Partial Fill upon patient request. levofloxacin 500 mg tablet 500 mg PO Q24H Qty: 7 0RF metronidazole 500 mg tablet 500 mg PO Q8H 7 Days Qty: 21 0RF Discharge Orders: Discharge Order (Routine); Ordered 05/22/22 Ordered By: Jaskaran Scott Diet: Advance to usual diet Activity on Discharge: No heavy lifting Stand Alone Forms: Patient Portal Discharge page Activity Restrictions/Additional Instructions: If the incision area is tender, you may apply an ice pack for short intervals (No more than 20 minutes on, followed by at least 20 minutes off). Do not apply heat. Do not use creams, lotions, or topical antibiotics unless instructed to do so by your surgeon. These can cause infection or allergic reaction. Ok to shower. Remove clear dressings 3 days following your procedure. You have steri strips (small white cloth strips) covering your incision- these will fall off ~1 week. No heavy lifting (>10lbs) or strenuous activity! Follow up in office with Dr. Scott in 1 week. ([phone]) Call Your Doctor If: -Your temperature exceeds 101.5? F -You experience excessive pain or swelling -You have an unexpected reaction to medication -You have excessive bleeding -You experience continued vomiting/nausea -Your incision begins to separate -Your incision shows signs of infection such as increased redness, swelling, excessive pain, drainage (light blood or clear fluid is normal) or heat Care Plan Goals: Return to baseline health and gradual return to activity following recovery period. Health Concerns: Perforated appendicitis with abscess Plan of Treatment: s/p lap appy BJ drain IV abx transitioned to PO Assessment: Improved Discharge Date/Time: 05/22/22 12:55
== END 2022-05-22 12:55 | disposition home or self-care (01) | DRG 233 ==
LOC: HO.ED 19:33 → HO.EDOVER 19:56 → HO.S3 05-19 13:58
PROVIDERS: Physician Assistant; Admitting Provider Surgery; Emergency Provider Internal Medicine; PCP Internal Medicine; Visit Provider Surgery
PROC: 0DTJ4ZZ Resection of Appendix, Percutaneous Endoscopic Approach (ICD-10-PCS; CPT 44970; principal; 2022-05-19 10:20)
DX: K35.33 Acute appendicitis with perforation, localized peritonitis, and gangrene, with abscess (principal); K38.1 Appendicular concretions; Z87.891 Personal history of nicotine dependence; Z88.0 Allergy status to penicillin; Z88.5 Allergy status to narcotic agent; Z88.6 Allergy status to analgesic agent
CPT/HCPCS: 36415; 74160; 74176; 80048; 80053; 81001; 83690; 83735; 85025; 85027; 85610; 87040; 87070; 87077; 87186; 87205; 87635; 88304; 88329; 93005; 99285; J0330; J1100; J1170; J1885; J1956; J2250; J2270; J2405; J3010; Q9967

== ENCOUNTER 2022-12-30 10:39 | Inpatient (IN) | payer MEDICAID, SELFPAY ==
[2022-12-30] VITALS (8 sets, daily range): BP systolic 106–141; BP diastolic 58–75; PULSE 84–102; RESP 12–19; TEMP 36.9–37.4; O2SAT 95–97; BMI 24.9; BMI 25.7
--- NOTE | ~2022-12-30 | US_ITS ---
EXAMINATION: US VENOUS ULTRASOUND WITH DOPPLER LOWER EXTREMITY, LEFT CLINICAL INFORMATION: Left leg pain. COMPARISON: CT scan of the abdomen and pelvis dated 05/09/2022. TECHNIQUE: Ultrasound of the deep veins is performed from the hip to the calf with compression sonography and color and pulse Doppler assessment. Spectral analysis with color-flow imaging is performed. FINDINGS: There is normal venous compression and respiratory variation and augmented flow. The visualized common femoral vein, superficial femoral vein, profunda femoral vein, popliteal vein, and the trifurcation region shows no evidence of deep venous thrombosis. Elongated reniform left inguinal lymph nodes are seen measuring up to 2.6 cm in long axis. No cystic or solid abnormality. No left popliteal cyst. The subcutaneous soft tissues are unremarkable. US/US venous duplex LE LT IMPRESSION: 1. No evidence for deep venous thrombosis in the visualized veins of the left lower extremity. 2. Mildly enlarged left inguinal lymph nodes correlate with CT findings and are likely chronic reactive. Correlate with physical exam and patient history.
--- NOTE | ~2022-12-30 | US_ITS ---
EXAMINATION: US VENOUS ULTRASOUND WITH DOPPLER LOWER EXTREMITY, LEFT CLINICAL INFORMATION: Question DVT COMPARISON: 01/01/2023 TECHNIQUE: Ultrasound of the deep veins is performed from the hip to the calf with compression sonography and color and pulse Doppler assessment. Spectral analysis with color-flow imaging is performed. FINDINGS: There is normal venous compression and respiratory variation and augmented flow. The visualized common femoral vein, superficial femoral vein, profunda femoral vein, popliteal vein, and the trifurcation region shows no evidence of deep venous thrombosis. There is no significant popliteal fossa cyst. A couple nonspecific lymph nodes are noted in the left inguinal region. If the patient's symptoms persist, followup ultrasound in 5 days 7 days might be of value to exclude proximal propagation from a non-visualized calf vein. US/US venous duplex LE IMPRESSION: No DVT demonstrated in the left lower extremity.
--- NOTE | ~2022-12-30 | US_ITS ---
EXAMINATION: US ABDOMEN COMPLETE CLINICAL INFORMATION: Elevated LFTs. COMPARISON: None available. TECHNIQUE: Real-time imaging of the abdominal viscera. FINDINGS: PANCREAS: Normal. No abnormal mass or peripancreatic inflammatory change. ABDOMINAL AORTA: The proximal, mid, and distal segments are normal in caliber. INFERIOR VENA CAVA: Visualized portions are normal. LIVER: Normal. The liver is normal in size. The liver contour is normal. Parenchymal echogenicity is normal. No focal hepatic lesion. There is no intrahepatic biliary duct dilatation seen. GALLBLADDER: The gallbladder contains mildly echogenic material consistent with sludge. No gallbladder wall thickening is seen. No pericholecystic fluid or fluid within gallbladder wall is appreciated. There is tenderness to palpation overlying the gallbladder. COMMON BILE DUCT: Normal in caliber measuring 0.2 cm in diameter. RIGHT KIDNEY: Normal. No hydronephrosis. No renal calculi or focal parenchymal lesions. The kidney measures 10.8 cm in maximum dimension. LEFT KIDNEY: Normal. No hydronephrosis. No renal calculi or focal parenchymal lesions. The kidney measures 11.1 cm in maximum dimension. SPLEEN: Normal. The spleen measures 9.8 cm in maximum dimension. FREE FLUID: None. US/US abdomen complete IMPRESSION: Sludge within the gallbladder without evidence of acute cholecystitis.
--- NOTE | ~2022-12-30 | CT_ITS ---
EXAMINATION: CT angio head neck stroke CLINICAL INFORMATION: Left-sided weakness. COMPARISON: CT head 12/30/2022. TECHNIQUE: Panel Lay Up Worker images were obtained. A CT angiogram of the head and neck was performed in the arterial phase after the intravenous administration of 70 mL Omnipaque 350. Delayed postcontrast images of the head were also obtained. 3D images were processed on an independent workstation under concurrent supervision. Arterial stenoses are measured in accordance with NASCET criteria or similar method if applicable. This CT examination was performed using dose optimization techniques as appropriate, including one or more of the following: Automated exposure control, iterative reconstruction, and adjustment of technique factors (mA and/or kVp) according to patient size (this includes techniques or standardized protocols for targeted exams where dose is matched to indication/reason for exam). Fleischner Society criteria for the followup of incidental pulmonary nodules was implemented if appropriate. Total exam dose-length product 1422 mGy-cm FINDINGS: Head: There are symmetric foci of hypoattenuation within the globus pallidus of both lentiform nuclei. Questionable hypoattenuation involving the undersurfaces of the frontal lobes. August-white matter differentiation is otherwise preserved and there is no evidence of acute territorial infarct. There is asymmetric swelling of the left periorbital soft tissues. The calvarium and skull base are intact. Mastoid air cells and middle ear cavities are well aerated. Trivial mucosal thickening within the maxillary sinuses. Otherwise no active paranasal sinus disease. CT angiogram neck: The aortic arch apex is normal. Origins of the major aortic branches are widely patent. Common carotid arteries and the carotid bifurcations are normal. No stenosis of the extracranial internal carotid arteries. The cervical segments of the vertebral arteries are widely patent. CT angiogram head: Intracranial internal carotid arteries are normal. The intradural vertebral artery segments and basilar artery are normal. Anterior, middle, and posterior cerebral artery complexes are normal. No intracranial large vessel occlusion. No identifiable aneurysm or high flow vascular lesion. The timing of the contrast injection provides adequate opacification of the dural venous sinuses which are patent. Other: Soft tissues of the neck including the thyroid gland are normal. No pathologically enlarged cervical lymph nodes. Lung apices are clear. No acute osseous finding. Specifically no worrisome lytic or blastic osseous lesion. CT/CT angio head neck stroke IMPRESSION: There is asymmetric left periorbital soft tissue swelling. Grossly no acute facial fracture. There are symmetric foci of hypoattenuation within the globus pallidus of both lentiform nuclei and there is questionable hypoattenuation involving the undersurfaces of the frontal lobes. A dedicated brain MRI can be obtained for better anatomic characterization of these findings. Otherwise unremarkable CT angiogram of the head and neck in that there is no stenosis of the cervical carotid or vertebral arteries. No intracranial large vessel occlusion. No identifiable aneurysm or high flow vascular lesion. This critical result was discussed with Jazmín Robles MD at 11:31 AM on 12/30/2022 and it was ascertained that the content and urgency of the report was understood at the time of direct communication.
--- NOTE | ~2022-12-30 | XR_ITS ---
EXAMINATION: XR CHEST CLINICAL INFORMATION: Shortness of breath. COMPARISON: None available. TECHNIQUE: Frontal view of the chest was obtained. FINDINGS: No significant abnormality is noted involving the heart, lungs, mediastinum, bony thorax or soft tissues. XR/XR chest 1V IMPRESSION: No acute cardiopulmonary process.
--- NOTE | ~2022-12-30 | CT_ITS ---
EXAMINATION: CT HEAD WITHOUT CONTRAST (STROKE PROTOCOL) CLINICAL INFORMATION: Stroke protocol. Left-sided weakness. COMPARISON: None available. TECHNIQUE: Contiguous axial imaging was performed from the skull base to vertex without intravenous administration of contrast. Coronal and sagittal reformatted images were obtained. This CT examination was performed using dose optimization techniques as appropriate, variously including the following: *Automated exposure control *Adjustment of mA and/or kV according to patient size (this includes techniques or standardized protocols for targeted exams where dose is matched to indication/reason for exam; i.e. extremities or head) *Use of iterative reconstruction technique DLP: 668 mGy-cm FINDINGS: The cortical sulci are normal. The lateral ventricles are symmetrical. The third and fourth ventricles are in their normal midline position. The basilar and prepontine cisterns are unremarkable. Bilateral basal ganglia lacunar infarcts are noted bilaterally. Small right basal ganglia calcification. There is no acute intra or extracerebral abnormality. There is no mass effect or midline shift. Sections through the bony calvarium are unremarkable. The paranasal sinuses are clear. The bony orbits and orbital contents are unremarkable. Mild asymmetric swelling in the visualized left facial/forehead region. CT/CT head for stroke IMPRESSION: No acute intracranial pathology. Mild asymmetric left facial soft tissue without overt underlying osseous abnormality. Correlate with physical exam. Please refer to the report from the CTA of the head from today for more detailed findings.
--- NOTE | 2022-12-30 10:55 | ECG_ITS ---
Test Reason : STROKE Blood Pressure : / mmHG Vent. Rate : 100 BPM Atrial Rate : 100 BPM P-R Int : 128 ms QRS Dur : 084 ms QT Int : 316 ms P-R-T Axes : 050 046 036 degrees QTc Int : 407 ms Normal sinus rhythm Normal ECG When compared with ECG of 17-MAY-2022 19:25, No significant change was found Referred By: Jazmín Robles Electronically Signed By:SURINDER EDUARDO MD
--- NOTE | 2022-12-30 11:00 | ED_ITS ---
HPI - Weakness General Chief complaint: Stroke Stated complaint: l leg weakness, arm weakness Time Seen by Provider: 12/30/22 10:51 History of Present Illness HPI Narrative: Patient is a 62-year-old male presents today with having a left-sided weakness. Patient previously had right-sided weakness from a previous stroke. Now has left-sided weakness that is new. Patient last noticed his left side to be normal was 18:00 last night. He was on the ground. Subsequently patient dragged himself to the door where he can notify his neighbor. Subsequently patient was sent to the ED for further evaluation this morning. He denies any specific localized pain. No fever no chills. No chest pain or diaphoresis. He is from home. He is not on blood thinners. He denies any alcohol use Related Data Home Medications Medication Instructions Recorded Confirmed No Known Home Meds 06/04/22 06/04/22 Allergies Allergy/AdvReac Type Severity Reaction Status Date / Time acetaminophen Allergy Unknown RASH, ITCHY Verified 06/03/22 14:29 [From Tylenol-Codeine] codeine Allergy Unknown RASH, ITCHY Verified 06/03/22 14:29 [From Tylenol-Codeine] Penicillins Allergy Unknown RASH, ITCHY Verified 06/03/22 14:29 Review of Systems Review of Systems: Positive generalized malaise Yes all other systems are reviewed and are negative PMFSH Past Medical History Attestation statement: The following information was validated with the patient. Surgical History H/O inguinal hernia repair S/P laparoscopic appendectomy (05/19/22) Social History Social History Household Members: None Housing: Apartment Do you presently have visiting nurse or other home services: No Patient Tobacco Use Status: Former Tobacco user Quit Date: 1978 Smoked in Last 30 Days: No Use of substances other than those prescribed or required for medical reasons: Yes Substance Use Type: Crack/Cocaine Substance Use Frequency: Occasionally Last Used Substance: Hours (ago) Advance Directives: No service: No Current occupational status: disabled Physical Exam Vital Signs: Vital Signs: Last Vital Signs Temp 98.7 F 12/30/22 14:24 Pulse 96 12/30/22 14:24 Resp 12 12/30/22 14:24 BP 133/72 12/30/22 14:24 Pulse Ox 97 12/30/22 14:24 O2 Del Method Room Air 12/30/22 14:24 BMI result Body Mass Index 24.9 Appearance: Alert. Oriented X3. No acute distress. Eyes: Pupils equal, round and reactive to light. ENT: Pharynx normal. Neck: Normal inspection. Neck supple. No lymph nodes noted. No crepitus CVS: Normal heart rate and rhythm. Pulses normal. Normal S1 and S2 Respiratory: No respiratory distress. Breath sounds normal. No Wheezing. No rales Abdomen: Soft and nontender. No rigidity. No distention. good BS x4 Skin: Skin warm and dry. Normal skin color. Normal skin turgor. Extremities: No lower extremity edema. Neurovascular intact to all extremities. No Lacerations. No Rash Neuro: Oriented to self and place. Equal hand grasp bilaterally both weak unable lift up against gravity. Equally weak bilateral lower extremity. Also unable to lift up against gravity. Sensation grossly intact. Pulses 2+ at dorsalis pedis. NIH Stroke Scale Internal: Initial- Upon Arrival Time: 11:03 Level of Consciousness: Alert Level of Consciousness Questions: Answers both questions correctly Level of Consciousness Commands: Performs both tasks correctly Best Gaze: Normal Visual: No visual loss Facial Palsy: Partial paralysis Motor Arm (Right): Some effort against gravity Motor Arm (Left): Some effort against gravity Motor Leg (Right): Some effort against gravity Motor Leg (Left): Some effort against gravity Limb Ataxia: Present in two limbs Sensory: Mild to moderate sensory loss Best Language: Mild to moderate aphasia Dysarthia: Mild to moderate dysarthria Extinction and Inattention: Visual, tactile, auditory, spatial, or personal inattention Score: 16 Medications Administered Discontinued Medications Generic Name Dose Route Start Last Admin Trade Name Freq PRN Reason Stop Dose Admin Sodium Chloride 1,000 mls @ 999 mls/hr 12/30/22 13:15 12/30/22 13:36 Ns IV 12/30/22 14:15 999 mls/hr .Q1H1M MARY Administration Cefepime HCl 1 gm/ Sodium 50 mls @ 100 mls/hr 12/30/22 13:09 12/30/22 14:27 Chloride IV 12/30/22 13:38 Infused ONCE ONE Infusion Iohexol 70 ml 12/30/22 11:43 12/30/22 11:43 Iohexol 350 Mg/Ml 100 Ml Infus..Btl IV 12/30/22 11:44 70 ml ONCE ONE Administration Medical Decision Making Medical Decision Making [facility] Narrative: Patient had question left-sided weakness. Question if it started last known well time was 09:00 today or 18:00 yesterday. When I spoke with patient he stated he was last well 18:00 yesterday. He was on the ground a long period of time. Until he can get in a hold of his neighbor. CT scan of the head was grossly negative for any acute evidence of bleeding. CTA of the head and neck showed no large vessel occlusion that is new. A stroke alert was called based on the EMS time. My interpretation patient's chest x-ray grossly negative for any acute evidence of pneumonia no pneumothorax. Patient's by cell count came back at 25. Question etiology. Cultures were obtained. Lactate ordered. [place] less likely secondary to sepsis. More likely secondary to patient's rhabdo mild lysis. Patient has CPK greater than 42,670. Elevated BUN and creatinine. In the setting of acute renal sub insufficiency more likely this is caused by the rhabdo. Patient started on a bicarb drip. Will monitor very carefully. Patient's urine showed no signs of infection but interestingly showed large amount of hemoglobin. Patient case discussed with the hospitalist team. Will admit for further evaluation. Will monitor very closely. In critical condition. Differential Diagnosis Differential Diagnoses: The differential diagnosis associated with the presentation includes Rhabdo, CVA, UTI, pneumonia, electrolyte disturbance, renal insufficiency Admission/Observation Consideration of admission/observation: Escalation of care including admission /observation considered Consult Healthcare Provider Management of the patient was discussed with: Hospitalist Lab Data [facility] Lab Attestation statement: I reviewed the patient's lab results. 12/30/22 12:02 12/30/22 12:02 Labs: Lab Results 12/30/22 12/30/22 12/30/22 Range/Units 10:54 10:55 12:02 WBC 25.1 H (4.8-10.8) X10*3/uL RBC 5.00 D (4.60-5.80) X10*6/uL Hgb 15.3 D (14.0-18.0) g/dl Hct 44.5 (42.0-52.0) % MCV 89.0 (80.0-98.0) fL MCH 30.6 (27.0-33.0) pg MCHC 34.4 (31.0-36.0) g/dl RDW 12.7 (11.0-16.0) % Plt Count 208 D (160-400) X10*3/uL MPV 10.1 (9.4-12.4) fL Immature Gran % (Auto) 0.7 H (0.0-0.4) % Neut % (Auto) 88.2 H (45-73) % Lymph % (Auto) 3.0 L (20-40) % [place] % (Auto) 7.9 (2-11) % Eos % (Auto) 0.0 (0-4) % Baso % (Auto) 0.2 (0-2) % Lymph # (Auto) 0.8 L (1.2-4.9) X10*3/uL [place] # (Auto) 2.0 H (0.1-1.2) X10*3/uL Eos # (Auto) 0.0 (0.0-0.4) X10*3/uL Baso # (Auto) 0.0 (0.0-0.2) X10*3/uL Abs Immat Gran (auto) 0.17 H (0.00-0.03) X10*3/uL Absolute Neuts (auto) 22.2 H (2.0-8.3) x10*3/uL Absolute Nucleated RBC 0.000 (0.0-0.012) X10*3/uL Nucleated RBC % (auto) 0.0 (0.0-0.2) /100WBC Smear Tech's Comments VERIFIED PT (10.0-13.1) SEC Whole Blood PT 14.1 H (11.1-13.5) sec INR (0.9-1.1) Whole Blood INR 1.2 H (0.9-1.1) APTT (26.0-36.4) SEC Sodium (135-145) mmol/L Potassium (3.3-5.1) mmol/L Chloride (96-108) mmol/L Carbon Dioxide (22-29) mmol/L Anion Gap (12-20) BUN (9-16) mg/dL Creatinine (0.5-1.4) mg/dL Estim Creat Clear Calc Estimated GFR POC Glucose 179 H (60-115) mg/dL Random Glucose (60-115) mg/dL Lactic Acid (0.5-2.0) mmol/L Calcium (8.4-10.2) mg/dL Phosphorus (2.7-4.5) mg/dL Magnesium (1.6-2.6) mg/dL Total Bilirubin (0.0-1.0) mg/dL Direct Bilirubin (0.0-0.5) mg/dL AST (5-37) U/L ALT (0-40) U/L Alkaline Phosphatase (39-117) U/L Total Creatine Kinase (38-174) U/L Troponin I High Sens (<3.5-35.0) ng/L Total Protein (6.5-8.0) g/dL Albumin (3.5-5.0) g/dL Urine Color Urine Appearance Urine pH (5.0-9.0) Ur Specific [place] (1.005-1.025) Urine Protein (Neg-Trace) mg/dL Urine Glucose (UA) (Negative) mg/dL Urine Ketones (Negative) mg/dL Urine Blood (Negative) Urine Nitrite (Negative) Ur Leukocyte Esterase (Negative) Urine RBC (0-2) /HPF Urine WBC (0-5) /HPF Ur Squamous Epith Cells (0-2) /HPF Urine Bacteria (None Seen) Hyaline Casts (0-2) /LPF Ethyl Alcohol mg/dL 12/30/22 12/30/22 12/30/22 Range/Units 12:02 12:02 12:02 WBC (4.8-10.8) X10*3/uL RBC (4.60-5.80) X10*6/uL Hgb (14.0-18.0) g/dl Hct (42.0-52.0) % MCV (80.0-98.0) fL MCH (27.0-33.0) pg MCHC (31.0-36.0) g/dl RDW (11.0-16.0) % Plt Count (160-400) X10*3/uL MPV (9.4-12.4) fL Immature Gran % (Auto) (0.0-0.4) % Neut % (Auto) (45-73) % Lymph % (Auto) (20-40) % [place] % (Auto) (2-11) % Eos % (Auto) (0-4) % Baso % (Auto) (0-2) % Lymph # (Auto) (1.2-4.9) X10*3/uL [place] # (Auto) (0.1-1.2) X10*3/uL Eos # (Auto) (0.0-0.4) X10*3/uL Baso # (Auto) (0.0-0.2) X10*3/uL Abs Immat Gran (auto) (0.00-0.03) X10*3/uL Absolute Neuts (auto) (2.0-8.3) x10*3/uL Absolute Nucleated RBC (0.0-0.012) X10*3/uL Nucleated RBC % (auto) (0.0-0.2) /100WBC Smear Tech's Comments PT 11.8 (10.0-13.1) SEC Whole Blood PT (11.1-13.5) sec INR 1.0 (0.9-1.1) Whole Blood INR (0.9-1.1) APTT 26.7 (26.0-36.4) SEC Sodium 131 L (135-145) mmol/L Potassium 4.7 D (3.3-5.1) mmol/L Chloride 97 (96-108) mmol/L Carbon Dioxide 22 (22-29) mmol/L Anion Gap 17 (12-20) BUN 63 H (9-16) mg/dL Creatinine 3.04 H (0.5-1.4) mg/dL Estim Creat Clear Calc 21.3 Estimated GFR 21 POC Glucose (60-115) mg/dL Random Glucose 131 H (60-115) mg/dL Lactic Acid (0.5-2.0) mmol/L Calcium 9.1 (8.4-10.2) mg/dL Phosphorus 4.9 H (2.7-4.5) mg/dL Magnesium 2.5 (1.6-2.6) mg/dL Total Bilirubin 1.0 (0.0-1.0) mg/dL Direct Bilirubin 0.3 (0.0-0.5) mg/dL AST 1278 H (5-37) U/L ALT 493 H (0-40) U/L Alkaline Phosphatase 51 (39-117) U/L Total Creatine Kinase > 98522 H (38-174) U/L Troponin I High Sens 140.7 H* (<3.5-35.0) ng/L Total Protein 6.5 (6.5-8.0) g/dL Albumin 3.5 (3.5-5.0) g/dL Urine Color Urine Appearance Urine pH (5.0-9.0) Ur Specific [place] (1.005-1.025) Urine Protein (Neg-Trace) mg/dL Urine Glucose (UA) (Negative) mg/dL Urine Ketones (Negative) mg/dL Urine Blood (Negative) Urine Nitrite (Negative) Ur Leukocyte Esterase (Negative) Urine RBC (0-2) /HPF Urine WBC (0-5) /HPF Ur Squamous Epith Cells (0-2) /HPF Urine Bacteria (None Seen) Hyaline Casts (0-2) /LPF Ethyl Alcohol < 10 mg/dL 12/30/22 12/30/22 Range/Units 13:28 13:38 WBC (4.8-10.8) X10*3/uL RBC (4.60-5.80) X10*6/uL Hgb (14.0-18.0) g/dl Hct (42.0-52.0) % MCV (80.0-98.0) fL MCH (27.0-33.0) pg MCHC (31.0-36.0) g/dl RDW (11.0-16.0) % Plt Count (160-400) X10*3/uL MPV (9.4-12.4) fL Immature Gran % (Auto) (0.0-0.4) % Neut % (Auto) (45-73) % Lymph % (Auto) (20-40) % [place] % (Auto) (2-11) % Eos % (Auto) (0-4) % Baso % (Auto) (0-2) % Lymph # (Auto) (1.2-4.9) X10*3/uL [place] # (Auto) (0.1-1.2) X10*3/uL Eos # (Auto) (0.0-0.4) X10*3/uL Baso # (Auto) (0.0-0.2) X10*3/uL Abs Immat Gran (auto) (0.00-0.03) X10*3/uL Absolute Neuts (auto) (2.0-8.3) x10*3/uL Absolute Nucleated RBC (0.0-0.012) X10*3/uL Nucleated RBC % (auto) (0.0-0.2) /100WBC Smear Tech's Comments PT (10.0-13.1) SEC Whole Blood PT (11.1-13.5) sec INR (0.9-1.1) Whole Blood INR (0.9-1.1) APTT (26.0-36.4) SEC Sodium (135-145) mmol/L Potassium (3.3-5.1) mmol/L Chloride (96-108) mmol/L Carbon Dioxide (22-29) mmol/L Anion Gap (12-20) BUN (9-16) mg/dL Creatinine (0.5-1.4) mg/dL Estim Creat Clear Calc Estimated GFR POC Glucose (60-115) mg/dL Random Glucose (60-115) mg/dL Lactic Acid 1.8 (0.5-2.0) mmol/L Calcium (8.4-10.2) mg/dL Phosphorus (2.7-4.5) mg/dL Magnesium (1.6-2.6) mg/dL Total Bilirubin (0.0-1.0) mg/dL Direct Bilirubin (0.0-0.5) mg/dL AST (5-37) U/L ALT (0-40) U/L Alkaline Phosphatase (39-117) U/L Total Creatine Kinase (38-174) U/L Troponin I High Sens (<3.5-35.0) ng/L Total Protein (6.5-8.0) g/dL Albumin (3.5-5.0) g/dL Urine Color Dark Yellow Urine Appearance Clear Urine pH 5.0 (5.0-9.0) Ur Specific [place] 1.020 (1.005-1.025) Urine Protein 30 (1+) H (Neg-Trace) mg/dL Urine Glucose (UA) Negative (Negative) mg/dL Urine Ketones Negative (Negative) mg/dL Urine Blood Large (3+) H (Negative) Urine Nitrite Negative (Negative) Ur Leukocyte Esterase Negative (Negative) Urine RBC 11-20 H (0-2) /HPF Urine WBC 0-5 (0-5) /HPF Ur Squamous Epith Cells 0-2 (0-2) /HPF Urine Bacteria None Seen (None Seen) Hyaline Casts 3-5 (0-2) /LPF Ethyl Alcohol mg/dL Independent Interpretation I performed an independent interpretation of an: EKG, Plain X-Ray and CT Scan Interpretation: My interpretation patient's EKG showed a sinus pattern heart rate is 100 OK QRS QT within normal limits there is no acute ST segment elevation noted. My interpretation patient's chest x-ray grossly negative for any acute evidence of pneumonia My interpretation patient's CT scan of the head was grossly negative for any acute evidence of Radiology Impression Discussion of test interpretation with radiology: I discussed test interpretation with the radiologist and I have reviewed the radiologist's reading. Radiologist Impression: I discussed with the radiologist about the CT scan finding of the head and CTA finding External Record Review External record reviewed: Inpatient record Social Determinants Patient lives alone Critical Care Time Critical Care Time Critical Care Time: Yes Total Critical Care Time: 40 Attestation: I have personally provided 40 minutes of critical care time exclusive of time spent on separately billable procedures. Time includes review of lab data, radiology results, discussion with consultants, and monitoring for potential decompensation. Interventions were performed as documented above Discharge Plan Discharge Clinical Impression: Acute renal failure, Rhabdomyolysis, Cerebrovascular accident Patient Disposition: Admitted As Inpatient
[2022-12-30 11:06] LABS: Prothrombin Time Whole Bld POC 14.1 sec (11.1-13.5); ~PT, ~INR - Anti Coag Clinic 1.2 (0.9-1.1)
[2022-12-30 11:07] LABS: Glucose, Whole Blood 179 mg/dL (60-115)
--- NOTE | 2022-12-30 11:36 | PC.NURSE ---
CT of head and neck completed, delay due to CT in use.
[2022-12-30] MEDS: iohexoL 350 MG/ML 100 ML INFUS..BTL 70 ML IV (11:43)
[2022-12-30 12:10] LABS: Basophils Percent Auto 0.2 % (0-2); Hematocrit 44.5 % (42.0-52.0); Hemoglobin 15.3 g/dl (14.0-18.0); Imm Gran Abs Auto 0.17 X10*3/uL (0.00-0.03); Imm Gran Pct Auto 0.7 % (0.0-0.4); Lymphocytes Absolute Auto 0.8 X10*3/uL (1.2-4.9); MANUAL DIFF FLAG SCAN; Mean Corpuscular HGB Conc 34.4 g/dl (31.0-36.0); Mean Corpuscular Hemoglobin 30.6 pg (27.0-33.0); Mean Platelet Volume 10.1 fL (9.4-12.4); Monocytes Percent Auto 7.9 % (2-11); Neutrophils Absolute Auto 22.2 x10*3/uL (2.0-8.3); Neutrophils Percent Auto 88.2 % (45-73); Platelet Count 208 X10*3/uL (160-400); Red Cell Distribution Width 12.7 % (11.0-16.0); SCAN SMEAR FLAG 1; White Blood Count 25.1 X10*3/uL (4.8-10.8)
[2022-12-30 12:17] LABS: Prothrombin Time 11.8 SEC (10.0-13.1)
[2022-12-30 12:20] LABS: Partial Thromboplastin Time 26.7 SEC (26.0-36.4)
[2022-12-30 12:23] LABS: Stroke Lab Use COMPLETE
[2022-12-30 12:37] LABS: Alanine Aminotransferase 493 U/L (0-40); Albumin Level 3.5 g/dL (3.5-5.0); Alkaline Phosphatase 51 U/L (39-117); Anion Gap 17 (12-20); Aspartate Amino Transferase 1278 U/L (5-37); Bilirubin Direct 0.3 mg/dL (0.0-0.5); Blood Urea Nitrogen 63 mg/dL (9-16); Calcium 9.1 mg/dL (8.4-10.2); Carbon Dioxide 22 mmol/L (22-29); Chloride 97 mmol/L (96-108); Creatinine Clr Calc Pharmacy 21.3; Estimated Glomerular Filt Rate 21; Ethanol < 10 mg/dL; Glucose Random 131 mg/dL (60-115); Magnesium 2.5 mg/dL (1.6-2.6); Phosphorus 4.9 mg/dL (2.7-4.5); Potassium 4.7 mmol/L (3.3-5.1); SLIDE REVIEW VERIFIED; Sodium 131 mmol/L (135-145); Total Protein 6.5 g/dL (6.5-8.0)
[2022-12-30 12:55] LABS: Troponin-I High Sensitivity 140.7 ng/L (<3.5-35.0)
[2022-12-30] MEDS: 0.9 % Sodium Chloride 1,000 ML 999 ML IV (13:36)
[2022-12-30 13:46] LABS: Appearance Urine Clear; Color Urine Dark Yellow; Glucose Urine UA Negative (Negative); Leukocyte Esterase Urine Negative (Negative); Nitrite Urine Negative (Negative); UMIC TRIGGER UACC YES; Urine Blood Large (3+) (Negative); Urine Ketones Negative (Negative); Urine Protein 30 (1+) mg/dL (Neg-Trace)
[2022-12-30 13:52] LABS: Lactic Acid 1.8 mmol/L (0.5-2.0)
[2022-12-30 13:55] LABS: Bacteria Urine None Seen (None Seen); Squamous Epithelial Cell Urine 0-2 /HPF (0-2); WBC Urine 0-5 /HPF (0-5)
[2022-12-30] MEDS: cefEPime HCl 1 GM in 0.9 % Sodium Chloride 50 ML IV (13:55)
--- NOTE | 2022-12-30 14:02 | PC.NURSE ---
Blood cultures drawn and sent to lab, antibiotic and fluids infusing.
[2022-12-30 14:43] LABS: Amphetamine Screen Urine Not Detected (Not Detect); Barbiturates, Urine Not Detected (Not Detect); Benzodiazepines Screen Urine Not Detected (Not Detect); Cannabinoid Screen Urine Not Detected (Not Detect); Cocaine Screen Urine POSITIVE (Not Detect); Fentanyl, urine POSITIVE (Not Detect); Opiate Screen Urine Not Detected (Not Detect); Phencyclidine Screen Urine Not Detected (Not Detect)
[2022-12-30] MEDS: Sodium Bicarbonate 8.4% 150 MEQ in Dextrose 5 % 850 ML 100 MEQ IV (14:46)
--- NOTE | 2022-12-30 14:51 | PHA.MEDREC ---
Pharmacy Consult ? Medication Reconciliation Pharmacy has completed the medication reconciliation. Confirmed with pt that he takes no maintenance meds at home.
--- NOTE | 2022-12-30 14:51 | PM.IMHP ---
History of Present Illness Date of Service: 12/30/22 Attending physician on admission: Braulio Gaffney Chief Complaint: Generalized weakness, pain Pt is a 62-year-old male with a PMH significant for?previous stroke and polysubstance use disorder who presents to the ED with?generalized whole body weakness and pain since this morning. Patient is a long-time daily user of cocaine and fentanyl, states yesterday he snorted a little over 1 g of cocaine likely laced with fentanyl and then passed out. Patient was on the floor for an unknown period of ?many hours?. Pt awoke this morning and found he could barely move. Dragged himself across his floor to his door and was able to get the attention of his neighbor who called EMS. Pt has a previous hx of CVA but is not on any home meds. Last saw a PCP 5+ years ago. Patient denies any localized pain. Denies chest pain/pressure, palpitations. No fever, chills, nausea, vomiting, abdominal pain. Denies shortness of breath. In the ED labs were significant for leukocytosis of 25.1, sodium of 131, BUN 63, creatinine 3.04, phosphorus 4.9, AST 1278, ALT 493, CPK > 33047, initial troponin 140.7 with repeat 160.7. Urine negative for UTI. CXR showed no acute cardiopulmonary process. CT?of head no acute intracranial pathology but mild asymmetric left facial soft tissue without overt underlying osseous abnormality. CTA of head neck found no acute facial fracture but did show asymmetric left periorbital soft tissue swelling, and symmetric foci of hypoattenuation within the globus pallidus of both lentiform new coli and questionable hypoattenuation of frontal lobes. CTA did not find any stenosis of cervical carotid or vertebral arteries and no intracranial large vessel occlusion. EKG demonstrated normal sinus rhythm without evidence of ST elevations or depressions. Pt was treated with IVF, cefepime, and started on a bicarb drip. Pt will be admitted to the hospital for treatment further evaluation of ELYSE secondary to rhabdomyolysis in the setting of cocaine use disorder. Review of Systems Review of Systems: Whole-body musculoskeletal weakness and pain Patient has no other acute medical complaints at this time Yes all other systems are reviewed and are negative PMFSH Surgical History H/O inguinal hernia repair S/P laparoscopic appendectomy (05/19/22) Social History Household Members: None Household Members Other:: 1 Housing: Apartment Do you presently have visiting nurse or other home services: No Patient Tobacco Use Status: Former Tobacco user Quit Date: 1978 Tobacco use type: Cigarette Smoked in Last 30 Days: No Use of substances other than those prescribed or required for medical reasons: Yes Substance Use Type: Crack/Cocaine Substance Use Frequency: Daily Last Used Substance: Hours (ago) Currently Displaying Signs/Symptoms of Drug Intoxication Withdrawal: No Any prior treatment program specific to substance use: No Have you been hit, kicked, punched, or otherwise hurt by someone within the past year? If so, by whom?: No Advance Directives: No Do you have thoughts of harming others: None Do you have a plan to hurt others: No Plan service: No Current occupational status: disabled Meds Allergies Allergy/AdvReac Type Severity Reaction Status Date / Time acetaminophen Allergy Unknown RASH, ITCHY Verified 06/03/22 14:29 [From Tylenol-Codeine] codeine Allergy Unknown RASH, ITCHY Verified 06/03/22 14:29 [From Tylenol-Codeine] Penicillins Allergy Unknown RASH, ITCHY Verified 06/03/22 14:29 Active Medications: Current Medications Sodium Bicarbonate 150 meq/ (Dextrose) 1,000 mls @ 100 mls/hr IV .Q10H MARY Last Admin: 12/30/22 14:46 Dose: 100 mls/hr Pharmacy Consult (Consult Rx Perform Med Rec) 1 each MISCELLANE ONCE PRN PRN Reason: Consult order Home Medications Medication Instructions Recorded Confirmed Last Taken Type No Known Home Meds 06/04/22 12/30/22 Unknown History Physical Exam Vital Signs and Narrative: Vital Signs: Last Vital Signs Temp 98.7 F 12/30/22 14:24 Pulse 96 12/30/22 14:24 Resp 12 12/30/22 14:24 BP 133/72 12/30/22 14:24 Pulse Ox 97 12/30/22 14:24 O2 Del Method Room Air 12/30/22 14:24 BMI result Body Mass Index 24.9 Constitutional: Alert, somnolent but arousable, cooperative, in no acute distress. Speaking softly slightly above a whisper Mental Status: Oriented to person, place and time. Eyes: Pupils are equal, round, and reactive to light. Ear, Nose, and Throat: Oropharynx clear, mucous membranes moist. Ears and nose without deformities. Trachea midline. Respiratory: Clear to auscultation bilaterally. No wheezing, rales, or rhonchi. Cardiovascular: S1, S2 regular. No murmurs, rubs, or gallops. Gastrointestinal: Abdomen soft, non-tender, non-distended. Normal bowel sounds. Neurologic: Cranial nerves II-XII are grossly intact bilaterally. No focal neurological deficits. Moves all extremities spontaneously. Skin: No rashes or lesions noted. Musculoskeletal: Global weakness noted, 1/5 strength of upper and lower extremities bilaterally. Extremities: No edema. Results Labs 12/30/22 12:02 12/30/22 12:02 Labs: Laboratory Results - last 24 hr 12/30/22 12/30/22 12/30/22 10:54 10:55 12:02 MCV 89.0 MCH 30.6 MCHC 34.4 RDW 12.7 Plt Count 208 D MPV 10.1 Immature Gran % (Auto) 0.7 H Neut % (Auto) 88.2 H Lymph % (Auto) 3.0 L [place] % (Auto) 7.9 Eos % (Auto) 0.0 Baso % (Auto) 0.2 Lymph # (Auto) 0.8 L [place] # (Auto) 2.0 H Eos # (Auto) 0.0 Baso # (Auto) 0.0 Abs Immat Gran (auto) 0.17 H Absolute Neuts (auto) 22.2 H Absolute Nucleated RBC 0.000 Nucleated RBC % (auto) 0.0 Smear Tech's Comments VERIFIED PT Whole Blood PT 14.1 H INR Whole Blood INR 1.2 H APTT Anion Gap Estim Creat Clear Calc Estimated GFR POC Glucose 179 H Random Glucose Lactic Acid Calcium Phosphorus Magnesium Total Bilirubin Direct Bilirubin AST ALT Alkaline Phosphatase Total Creatine Kinase Troponin I High Sens Total Protein Albumin Urine Color Urine Appearance Urine pH Ur Specific [place] Urine Protein Urine Glucose (UA) Urine Ketones Urine Blood Urine Nitrite Ur Leukocyte Esterase Urine RBC Urine WBC Ur Squamous Epith Cells Urine Bacteria Hyaline Casts Urine Opiates Screen Urine Fentanyl Screen Ur Barbiturates Screen Ur Phencyclidine Scrn Ur Amphetamines Screen U Benzodiazepines Scrn Urine Cocaine Screen U Marijuana (THC) Screen Ethyl Alcohol 12/30/22 12/30/22 12/30/22 12:02 12:02 12:02 MCV MCH MCHC RDW Plt Count MPV Immature Gran % (Auto) Neut % (Auto) Lymph % (Auto) [place] % (Auto) Eos % (Auto) Baso % (Auto) Lymph # (Auto) [place] # (Auto) Eos # (Auto) Baso # (Auto) Abs Immat Gran (auto) Absolute Neuts (auto) Absolute Nucleated RBC Nucleated RBC % (auto) Smear Tech's Comments PT 11.8 Whole Blood PT INR 1.0 Whole Blood INR APTT 26.7 Anion Gap 17 Estim Creat Clear Calc 21.3 Estimated GFR 21 POC Glucose Random Glucose 131 H Lactic Acid Calcium 9.1 Phosphorus 4.9 H Magnesium 2.5 Total Bilirubin 1.0 Direct Bilirubin 0.3 AST 1278 H ALT 493 H Alkaline Phosphatase 51 Total Creatine Kinase > 74921 H Troponin I High Sens 140.7 H* Total Protein 6.5 Albumin 3.5 Urine Color Urine Appearance Urine pH Ur Specific [place] Urine Protein Urine Glucose (UA) Urine Ketones Urine Blood Urine Nitrite Ur Leukocyte Esterase Urine RBC Urine WBC Ur Squamous Epith Cells Urine Bacteria Hyaline Casts Urine Opiates Screen Urine Fentanyl Screen Ur Barbiturates Screen Ur Phencyclidine Scrn Ur Amphetamines Screen U Benzodiazepines Scrn Urine Cocaine Screen U Marijuana (THC) Screen Ethyl Alcohol < 10 12/30/22 12/30/22 12/30/22 13:28 13:28 13:38 MCV MCH MCHC RDW Plt Count MPV Immature Gran % (Auto) Neut % (Auto) Lymph % (Auto) [place] % (Auto) Eos % (Auto) Baso % (Auto) Lymph # (Auto) [place] # (Auto) Eos # (Auto) Baso # (Auto) Abs Immat Gran (auto) Absolute Neuts (auto) Absolute Nucleated RBC Nucleated RBC % (auto) Smear Tech's Comments PT Whole Blood PT INR Whole Blood INR APTT Anion Gap Estim Creat Clear Calc Estimated GFR POC Glucose Random Glucose Lactic Acid 1.8 Calcium Phosphorus Magnesium Total Bilirubin Direct Bilirubin AST ALT Alkaline Phosphatase Total Creatine Kinase Troponin I High Sens Total Protein Albumin Urine Color Dark Yellow Urine Appearance Clear Urine pH 5.0 Ur Specific [place] 1.020 Urine Protein 30 (1+) H Urine Glucose (UA) Negative Urine Ketones Negative Urine Blood Large (3+) H Urine Nitrite Negative Ur Leukocyte Esterase Negative Urine RBC 11-20 H Urine WBC 0-5 Ur Squamous Epith Cells 0-2 Urine Bacteria None Seen Hyaline Casts 3-5 Urine Opiates Screen Not Detected Urine Fentanyl Screen POSITIVE H Ur Barbiturates Screen Not Detected Ur Phencyclidine Scrn Not Detected Ur Amphetamines Screen Not Detected U Benzodiazepines Scrn Not Detected Urine Cocaine Screen POSITIVE H U Marijuana (THC) Screen Not Detected Ethyl Alcohol Imaging Radiologist's Impressions: Impressions Head CT 12/30/22 11:10 IMPRESSION: No acute intracranial pathology. Mild asymmetric left facial soft tissue without overt underlying osseous abnormality. Correlate with physical exam. Please refer to the report from the CTA of the head from today for more detailed findings. Head/Neck CTA 12/30/22 11:19 IMPRESSION: There is asymmetric left periorbital soft tissue swelling. Grossly no acute facial fracture. There are symmetric foci of hypoattenuation within the globus pallidus of both lentiform nuclei and there is questionable hypoattenuation involving the undersurfaces of the frontal lobes. A dedicated brain MRI can be obtained for better anatomic characterization of these findings. Otherwise unremarkable CT angiogram of the head and neck in that there is no stenosis of the cervical carotid or vertebral arteries. No intracranial large vessel occlusion. No identifiable aneurysm or high flow vascular lesion. This critical result was discussed with Jazmín Robles MD at 11:31 AM on 12/30/2022 and it was ascertained that the content and urgency of the report was understood at the time of direct communication. Chest X-Ray 12/30/22 11:53 IMPRESSION: No acute cardiopulmonary process. Assessment and Plan (1) Rhabdomyolysis: Status: Acute (2) Transaminitis: Status: Acute (3) ELYSE (acute kidney injury): Status: Acute Plan Pt is a 62-year-old male with a PMH significant for?previous stroke and polysubstance use disorder who presents to the ED with?generalized whole body weakness and pain since this morning. Patient is a long-time daily user of cocaine and fentanyl, states yesterday he snorted a little over 1 g of cocaine likely laced with fentanyl and then passed out. Patient was on the floor for an unknown period of ?many hours?. Pt was treated with IVF, cefepime, and started on a bicarb drip. Pt will be admitted to the hospital for treatment further evaluation of ELSYE secondary to rhabdomyolysis in the setting of cocaine use disorder. Rhabdomyolysis Likely secondary to cocaine use Patient states yesterday he was using cocaine when he passed out, lay on the floor for ?hours?, definitive timeline not known CPK >24407, pt with upper and lower extremity weakness and pain Pt given IVF and startd on bicarb 150meq in dextrose @100 mls/hr in ED Continue bicarb drip Check tox screen PT evaluation Follow BMP ELYSE Pt's creatinine 3.04 Likely secondary to rhabdomyolysis Treat as above Follow BMP Transaminitis Most likely secondary to cocaine use Check right upper quadrant ultrasound Check hepatitis panel Check salicylate, acetaminophen levels Follow CMP Hx of CVA Hx of previous CVA, not on home meds Pt currently with left-sided eyelid droop Less likely new CVA since no other focal deficits Neurology consult Pt has received aspirin in ED, will start on aspirin 81mg qd Will hold on adding statin d/t rhabdo and transaminitis Leukocytosis Elevated WBC 25.1 Possibly reactionary, no clear source of infection Will empirically start on cefepime 1 g q.12 Follow cultures Abnormal CTA CT of head and CTA of head and neck with asymmetric left periorbital soft tissue swelling without evidence of acute facial fracture Patient not complaining of headache, facial pain, vision changes No action indicated at this time Monitor clinically Cocaine use disorder Pt uses cocaine daily, last used a little over 1g yesterday Addiction medicine consult Hyponatremia Pt's sodium 131 at time of admission Pt received IVF in ED Follow BMP Full Code Attending:?Dr. Ling DVT Prophylaxis: Pneumatic boots Pt will require a hospitalization of at least two nights for treatment of?ELYSE secondary to rhabdomyolysis in the setting of cocaine use disorder with IVF and bicarb drip. Time Spent With Patient Time: Total time managing care of this patient today ____ minutes. Quality Stroke Does the patient have a stroke diagnosis?: No VTE Prior VTE?: No VTE Risk Level:: Medical - moderate - high VTE Device Contraindication: Treatment Not Indicated VTE Drug Contraindication: N/A - Med Ordered
[2022-12-30] MEDS: Aspirin 81 MG TAB.CHEW 324 MG PO (14:53)
[2022-12-30 16:11] LABS: Acetaminophen LAB < 17 mcg/mL (<30); Salicylate < 5.0 mg/dL (15-30)
[2022-12-30 16:29] LABS: Troponin-I High Sensitivity 160.7 ng/L (<3.5-35.0)
--- NOTE | 2022-12-30 16:54 | PC.NURSE ---
Pt resting, no apparent pain or discomfort noted. lights dimmed. Pending bed assignment.
[2022-12-30 18:11] LABS: Alanine Aminotransferase 426 U/L (0-40); Albumin Level 3.1 g/dL (3.5-5.0); Alkaline Phosphatase 46 U/L (39-117); Anion Gap 17 (12-20); Aspartate Amino Transferase 1030 U/L (5-37); Bilirubin Total 1.2 mg/dL (0.0-1.0); Blood Urea Nitrogen 64 mg/dL (9-16); Calcium 8.5 mg/dL (8.4-10.2); Carbon Dioxide 19 mmol/L (22-29); Chloride 100 mmol/L (96-108); Creatinine Clr Calc Pharmacy 22.7; Estimated Glomerular Filt Rate 23; Glucose Random 136 mg/dL (60-115); Potassium 5.2 mmol/L (3.3-5.1); Sodium 131 mmol/L (135-145); Total Protein 5.9 g/dL (6.5-8.0)
--- NOTE | 2022-12-30 22:42 | PC.NURSE ---
Reyes held, pt NPO pending swallow, too drowsy to swallow safely. Dr. Mcdonough made aware. New orders pending.
[2022-12-31] VITALS (7 sets, daily range): BP systolic 87–127; BP diastolic 54–77; PULSE 83–105; RESP 17–20; TEMP 36.5–37.1; O2SAT 92–97
[2022-12-31] MEDS: cefEPime HCl 1 GM in 0.9 % Sodium Chloride 50 ML IV ×2 (02:41→11:48)
[2022-12-31] MEDS: Sodium Bicarbonate 8.4% 150 MEQ in Dextrose 5 % 850 ML 100 MEQ IV ×3 (02:42→21:21)
[2022-12-31 05:07] LABS: HBS Num1 45.95 mIU/mL (0-7.99); HBc Num1 0.09 S/CO (0.00-0.79); HBsAGNum1 0.31 S/CO (0.00-0.99); Hepatitis A Antibody IgM 0.18 Index (0-0.79); Hepatitis B Core Antibody Nonreactive (Nonreactive); Hepatitis B Surface Antigen Negative (Negative); ~HepC Num1 0.11 S/CO (0.00-0.79); ~Hepatitis A Antibody IgM Nonreactive (Nonreactive); ~Hepatitis B Surface Antibody REACTIVE (Nonreactive); ~Hepatitis C Antibody Nonreactive (Nonreactive)
[2022-12-31 06:49] LABS: Hematocrit 40.7 % (42.0-52.0); Mean Corpuscular HGB Conc 34.4 g/dl (31.0-36.0); Mean Corpuscular Hemoglobin 30.2 pg (27.0-33.0); Mean Corpuscular Volume 87.9 fL (80.0-98.0); Mean Platelet Volume 10.2 fL (9.4-12.4); Platelet Count 165 X10*3/uL (160-400); Red Blood Count 4.63 X10*6/uL (4.60-5.80); Red Cell Distribution Width 12.7 % (11.0-16.0); White Blood Count 14.8 X10*3/uL (4.8-10.8)
[2022-12-31 07:14] LABS: Alanine Aminotransferase 344 U/L (0-40); Alkaline Phosphatase 44 U/L (39-117); Anion Gap 15 (12-20); Aspartate Amino Transferase 729 U/L (5-37); Bilirubin Total 1.6 mg/dL (0.0-1.0); Blood Urea Nitrogen 56 mg/dL (9-16); Calcium 8.8 mg/dL (8.4-10.2); Carbon Dioxide 28 mmol/L (22-29); Chloride 98 mmol/L (96-108); Creatinine Clr Calc Pharmacy 35.1; Estimated Glomerular Filt Rate 37; Glucose Random 124 mg/dL (60-115); Potassium 4.2 mmol/L (3.3-5.1); Sodium 137 mmol/L (135-145); Total Protein 5.9 g/dL (6.5-8.0)
[2022-12-31 08:11] LABS: Estimated Average Glucose 105 mg/dL; Hemoglobin A1c % 5.3 %
[2022-12-31] MEDS: 0.9 % Sodium Chloride Flush 3 ML SYRINGE IVFLUSH ×2 (10:19→21:22)
--- NOTE | 2022-12-31 10:27 | PM.CNNEP ---
History of Present Illness Reason for Consult Consult date: 12/31/22 Chief Complaint Chief complaint: Rhabdomyolysis, ELYSE History of Present Illness Narrative: 62-year-old male with normal baseline kidney function admitted with rhabdomyolysis found to have elevated serum creatinine. He is a long-time daily user of cocaine and fentanyl and apparently snorted a little over 1 g of cocaine with fentanyl and then passed out.? Patient was on the floor for an unknown period of ?many hours?. He denies fever, chills, chest pain, shortness of breath, nausea, vomiting, abdominal pain.? CXR showed no acute cardiopulmonary process. He also had a CTA of head neck. Review of Systems Review of Systems 10 points [facility] negative [facility] Surgical History Surgical History H/O inguinal hernia repair S/P laparoscopic appendectomy (05/19/22) Social History Social History Household Members: None Household Members Other:: 1 Housing: Apartment Do you presently have visiting nurse or other home services: No Patient Tobacco Use Status: Former Tobacco user Quit Date: 1978 Tobacco use type: Cigarette Smoked in Last 30 Days: No Use of substances other than those prescribed or required for medical reasons: Yes Substance Use Type: Crack/Cocaine Substance Use Frequency: Daily Last Used Substance: Hours (ago) Currently Displaying Signs/Symptoms of Drug Intoxication Withdrawal: No Any prior treatment program specific to substance use: No Have you been hit, kicked, punched, or otherwise hurt by someone within the past year? If so, by whom?: No Advance Directives: No Do you have thoughts of harming others: None Do you have a plan to hurt others: No Plan service: No Current occupational status: disabled Meds Allergies Allergy/AdvReac Type Severity Reaction Status Date / Time acetaminophen Allergy Unknown RASH, ITCHY Verified 06/03/22 14:29 [From Tylenol-Codeine] codeine Allergy Unknown RASH, ITCHY Verified 06/03/22 14:29 [From Tylenol-Codeine] Penicillins Allergy Unknown RASH, ITCHY Verified 06/03/22 14:29 Active Medications: Current Medications Aspirin (Aspirin 81 Mg Tab.Chew) 81 mg PO DAILY MARY Last Admin: 12/31/22 10:19 Dose: Not Given Sodium Bicarbonate 150 meq/ (Dextrose) 1,000 mls @ 100 mls/hr IV .Q10H [facility] Last Admin: 12/31/22 10:16 Dose: 100 mls/hr Cefepime HCl 1 gm/ Sodium (Chloride) 50 mls @ 100 mls/hr IV Q12H [facility] Last Infusion: 12/31/22 03:35 Dose: Infused Ondansetron HCl (Ondansetron Hcl 4 Mg/2 Ml Vial) 4 mg IVPUSH Q8H PRN PRN Reason: Nausea and Vomiting Pharmacy Consult (Consult Rx Perform Med Rec) 1 each MISCELLANE ONCE PRN PRN Reason: Consult order Sodium Chloride (0.9 % Sodium Chloride Flush 3 Ml Syringe) 3 ml IVFLUSH QSHIFT [facility] Last Admin: 12/31/22 10:19 Dose: 3 ml Home Medications Medication Instructions Recorded Confirmed Last Taken Type No Known Home Meds 06/04/22 12/30/22 Unknown History Physical Exam Vital Signs: Last Vital Signs Temp 98.1 F 12/31/22 07:24 Pulse 100 12/31/22 10:04 Resp 18 12/31/22 07:24 BP 119/61 12/31/22 10:04 Pulse Ox 95 12/31/22 10:04 O2 Del Method Room Air 12/31/22 07:24 BMI result Body Mass Index 25.7 Const General: alert and awake HEENT Head: Yes normocephalic and Yes atraumatic Neck Neck: Yes supple Resp Auscultation: diminished lung sounds Cardio Heart sounds: S1 normal heart sound present and S2 normal heart sound present GI Palpation (GI): Soft to palpation and nontender Extrem Right upper extremity: no edema Results Lab Results 12/31/22 06:27 12/31/22 06:27 Lab results: Chemistry 12/30/22 12/30/22 12/31/22 12:02 15:18 06:27 Sodium 131 L 131 L 137 Potassium 4.7 D 5.2 H 4.2 Carbon Dioxide 22 19 L 28 BUN 63 H 64 H 56 H Creatinine 3.04 H 2.85 H 1.85 H Calcium 9.1 8.5 D 8.8 Phosphorus 4.9 H Hematology 12/30/22 12/31/22 12:02 06:27 WBC 25.1 H 14.8 H Hgb 15.3 D 14.0 Plt Count 208 D 165 Urinalysis 12/30/22 13:28 Urine Color Dark Yellow Urine Appearance Clear Urine pH 5.0 Ur Specific [place] 1.020 Urine Protein 30 (1+) H Urine Glucose (UA) Negative Urine Ketones Negative Urine Blood Large (3+) H Urine Nitrite Negative Ur Leukocyte Esterase Negative Urine RBC 11-20 H Urine WBC 0-5 Ur Squamous Epith Cells 0-2 Hyaline Casts 3-5 Assessment and Plan (1) ELYSE (acute kidney injury): Status: Acute (2) Rhabdomyolysis: Status: Acute Plan ELYSE due to heme pigment nephrotoxicity in the setting of cocaine use otther less likely normal baseline kidney function REC dc bicarbonate drip change IVF to 0.9% 125 cc/hr follow cpk monitor urine output follow kidney function and electrolytes Time Spent With Patient Time: Total time managing care of this patient today ____ minutes. Procedures Date of Service Date of Service: 12/31/22
--- NOTE | 2022-12-31 10:57 | P.CNNE_ITS ---
History of Present Illness Data of Consult Service Date: 12/31/22 Primary Care Provider: Unknown Physician HPI Reason for consult: Encephalopathy 62 years old man I was asked to see for possibility of stroke. With history of polysubstance abuse, he was found on the floor and was there for a while. His CPK level was quite high suggestive of rhabdomyolysis. When I asked him why he was here he said that he had a stroke. When I asked him what symptom he had he said left-sided weakness. Apparently left sided eye droop was noted. There was no change in speech or vision. Review of Systems Review of Systems: No recent cold or flu-like illness PMFSH Surgical History Surgical History H/O inguinal hernia repair S/P laparoscopic appendectomy (05/19/22) Social History Social History Household Members: None Household Members Other:: 1 Housing: Apartment Do you presently have visiting nurse or other home services: No Patient Tobacco Use Status: Former Tobacco user Quit Date: 1978 Tobacco use type: Cigarette Smoked in Last 30 Days: No Use of substances other than those prescribed or required for medical reasons: Yes Substance Use Type: Crack/Cocaine Substance Use Frequency: Daily Last Used Substance: Hours (ago) Currently Displaying Signs/Symptoms of Drug Intoxication Withdrawal: No Any prior treatment program specific to substance use: No Have you been hit, kicked, punched, or otherwise hurt by someone within the past year? If so, by whom?: No Advance Directives: No Do you have thoughts of harming others: None Do you have a plan to hurt others: No Plan service: No Current occupational status: disabled Meds Allergies Allergy/AdvReac Type Severity Reaction Status Date / Time acetaminophen Allergy Unknown RASH, ITCHY Verified 06/03/22 14:29 [From Tylenol-Codeine] codeine Allergy Unknown RASH, ITCHY Verified 06/03/22 14:29 [From Tylenol-Codeine] Penicillins Allergy Unknown RASH, ITCHY Verified 06/03/22 14:29 Active Medications: Current Medications Aspirin (Aspirin 81 Mg Tab.Chew) 81 mg PO DAILY MARY Last Admin: 12/31/22 10:19 Dose: Not Given Sodium Bicarbonate 150 meq/ (Dextrose) 1,000 mls @ 100 mls/hr IV .Q10H [facility] Last Admin: 12/31/22 10:16 Dose: 100 mls/hr Cefepime HCl 1 gm/ Sodium (Chloride) 50 mls @ 100 mls/hr IV Q12H [facility] Last Infusion: 12/31/22 03:35 Dose: Infused Ondansetron HCl (Ondansetron Hcl 4 Mg/2 Ml Vial) 4 mg IVPUSH Q8H PRN PRN Reason: Nausea and Vomiting Pharmacy Consult (Consult Rx Perform Med Rec) 1 each MISCELLANE ONCE PRN PRN Reason: Consult order Sodium Chloride (0.9 % Sodium Chloride Flush 3 Ml Syringe) 3 ml IVFLUSH QSHIFT [facility] Last Admin: 12/31/22 10:19 Dose: 3 ml Home Medications Medication Instructions Recorded Confirmed Last Taken Type No Known Home Meds 06/04/22 12/30/22 Unknown History Physical Exam Vital Signs: Vital Signs: Last Vital Signs Temp 98.1 F 12/31/22 07:24 Pulse 100 12/31/22 10:04 Resp 18 12/31/22 07:24 BP 119/61 12/31/22 10:04 Pulse Ox 95 12/31/22 10:04 O2 Del Method Room Air 12/31/22 07:24 BMI result Body Mass Index 25.7 Neuro: Other: he is alert and awake with normal spontaneity of speech fluency comprehension and affect. Pupils are round reactive to light. Visual cantrell are full to confrontation. There is no ptosis. There is mild left-sided facial flatness.. Tongue is midline. Right leg reflexes are brisk with extensor plantar. Left leg reflexes are 1+ with equivocal plantar per speech is normal Results Labs 12/31/22 06:27 12/31/22 06:27 Labs: Short CBC 12/30/22 12/31/22 Range/Units 12:02 06:27 WBC 25.1 H 14.8 H (4.8-10.8) X10*3/uL Hgb 15.3 D 14.0 (14.0-18.0) g/dl Hct 44.5 40.7 L (42.0-52.0) % Plt Count 208 D 165 (160-400) X10*3/uL BMP 12/30/22 12/30/22 12/31/22 12:02 15:18 06:27 Sodium 131 L 131 L 137 Potassium 4.7 D 5.2 H 4.2 Chloride 97 100 98 Carbon Dioxide 22 19 L 28 BUN 63 H 64 H 56 H Creatinine 3.04 H 2.85 H 1.85 H Calcium 9.1 8.5 D 8.8 Cardiac Enzymes 12/30/22 12/30/22 12/31/22 Range/Units 12:02 15:18 06:27 Total Creatine Kinase > 78778 H 53763 H 94732 H (38-174) U/L Liver Function 12/30/22 12/30/22 12/31/22 Range/Units 12:02 15:18 06:27 Total Bilirubin 1.0 1.2 H 1.6 H (0.0-1.0) mg/dL Direct Bilirubin 0.3 (0.0-0.5) mg/dL AST 1278 H 1030 H 729 H (5-37) U/L ALT 493 H 426 H 344 H (0-40) U/L Alkaline Phosphatase 51 46 44 (39-117) U/L Albumin 3.5 3.1 L 3.0 L (3.5-5.0) g/dL Urine 12/30/22 Range/Units 13:28 Urine Color Dark Yellow Urine Appearance Clear Urine pH 5.0 (5.0-9.0) Ur Specific [place] 1.020 (1.005-1.025) Urine Protein 30 (1+) H (Neg-Trace) mg/dL Urine Glucose (UA) Negative (Negative) mg/dL CT and CTA of brain and neck were reviewed. There was no obvious acute finding. Bilateral globus pallidus hypodensities were noted. CTA did not rev eal any vascular lesion. Assessment and Plan (1) Toxic encephalopathy: Status: Acute 62 years old man with active cocaine use, probably associated unresponsiveness for long time and subsequent rhabdomyolysis, with imaging revealing bilateral globus pallidus hypodensities, which likely a reflective of previous such episodes. Typical cause of this type of finding is drug abuse like cocaine abuse or carbon monoxide poisoning. Mainstay of management is avoidance of such behavior or risks. Appropriate treatment of rhabdomyolysis is recommended. (2) Brain lesion: Status: Acute Time Spent With Patient Time: Total time managing care of this patient today ____ minutes. Procedures Date of Service Date of Service: 12/31/22
[2022-12-31] MEDS: Gabapentin 100 MG CAPSULE PO ×2 (11:48→20:56)
--- NOTE | 2022-12-31 12:03 | HO.PM.IMPN ---
Subjective Subjective Date of Service: 12/31/22 Interval History: Toxic metabolic encephalopathy Review of Systems menatal status seems improving has body pains Denies any cough or shortness of breath or chest pain Physical Exam Vital Signs: Vital Signs: Last Vital Signs Temp 97.7 F 12/31/22 11:02 Pulse 83 12/31/22 11:02 Resp 17 12/31/22 11:02 BP 117/77 12/31/22 11:02 Pulse Ox 97 12/31/22 11:02 O2 Del Method Room Air 12/31/22 11:02 BMI result Body Mass Index 25.7 Appearance: Alert.? Oriented 2-3.? not in distress.? cvs: rrr, [id number]. res: clear to auscultation ,no rhonchii or wheezing abd: no rebound or guarding ,nt, bs present. ext pulses present , no cyanosis . neuro: axo3 , nonfocal. Objective Data Active Medications Aspirin (Aspirin 81 Mg Tab.Chew) 81 mg PO DAILY [facility] Last Admin: 12/31/22 10:19 Dose: Not Given Documented By: EMMETT Non-Admin Reason: NPO Gabapentin (Gabapentin 100 Mg Capsule) 100 mg PO BID [facility] Last Admin: 12/31/22 11:48 Dose: 100 mg Documented By: GABRIELA Sodium Bicarbonate 150 meq/ (Dextrose) 1,000 mls @ 100 mls/hr IV .Q10H [facility] Last Admin: 12/31/22 10:16 Dose: 100 mls/hr Documented By: EMMETT Cefepime HCl 1 gm/ Sodium (Chloride) 50 mls @ 100 mls/hr IV Q12H [facility] Last Admin: 12/31/22 11:48 Dose: 100 mls/hr Documented By: GABRIELA Ondansetron HCl (Ondansetron Hcl 4 Mg/2 Ml Vial) 4 mg IVPUSH Q8H PRN PRN Reason: Nausea and Vomiting Pharmacy Consult (Consult Rx Perform Med Rec) 1 each MISCELLANE ONCE PRN PRN Reason: Consult order Sodium Chloride (0.9 % Sodium Chloride Flush 3 Ml Syringe) 3 ml IVFLUSH QSHIFT [facility] Last Admin: 12/31/22 10:19 Dose: 3 ml Documented By: EMMETT Labs 12/31/22 06:27 12/31/22 06:27 Labs: Laboratory Results - last 24 hr 12/30/22 12/30/22 12/30/22 12:02 12:02 12:02 MCV 89.0 MCH 30.6 MCHC 34.4 RDW 12.7 Plt Count 208 D MPV 10.1 Immature Gran % (Auto) 0.7 H Neut % (Auto) 88.2 H Lymph % (Auto) 3.0 L [place] % (Auto) 7.9 Eos % (Auto) 0.0 Baso % (Auto) 0.2 Lymph # (Auto) 0.8 L [place] # (Auto) 2.0 H Eos # (Auto) 0.0 Baso # (Auto) 0.0 Abs Immat Gran (auto) 0.17 H Absolute Neuts (auto) 22.2 H Absolute Nucleated RBC 0.000 Nucleated RBC % (auto) 0.0 Smear Tech's Comments VERIFIED PT 11.8 INR 1.0 APTT 26.7 Anion Gap 17 Estim Creat Clear Calc 21.3 Estimated GFR 21 Random Glucose 131 H Estimat Average Glucose Hemoglobin A1c % Lactic Acid Calcium 9.1 Phosphorus 4.9 H Magnesium 2.5 Total Bilirubin 1.0 Direct Bilirubin 0.3 AST 1278 H ALT 493 H Alkaline Phosphatase 51 Total Creatine Kinase > 20715 H Troponin I High Sens Total Protein 6.5 Albumin 3.5 Urine Color Urine Appearance Urine pH Ur Specific [place] Urine Protein Urine Glucose (UA) Urine Ketones Urine Blood Urine Nitrite Ur Leukocyte Esterase Urine RBC Urine WBC Ur Squamous Epith Cells Urine Bacteria Hyaline Casts Salicylates Urine Opiates Screen Urine Fentanyl Screen Acetaminophen Ur Barbiturates Screen Ur Phencyclidine Scrn Ur Amphetamines Screen U Benzodiazepines Scrn Urine Cocaine Screen U Marijuana (THC) Screen Ethyl Alcohol < 10 Hepatitis A IgM Ab Hep Bs Antigen Hep Bs Antibody Hep B Core Total Ab Hepatitis C Ab (EIA) 12/30/22 12/30/22 12/30/22 12:02 13:28 13:28 MCV MCH MCHC RDW Plt Count MPV Immature Gran % (Auto) Neut % (Auto) Lymph % (Auto) [place] % (Auto) Eos % (Auto) Baso % (Auto) Lymph # (Auto) [place] # (Auto) Eos # (Auto) Baso # (Auto) Abs Immat Gran (auto) Absolute Neuts (auto) Absolute Nucleated RBC Nucleated RBC % (auto) Smear Tech's Comments PT INR APTT Anion Gap Estim Creat Clear Calc Estimated GFR Random Glucose Estimat Average Glucose Hemoglobin A1c % Lactic Acid Calcium Phosphorus Magnesium Total Bilirubin Direct Bilirubin AST ALT Alkaline Phosphatase Total Creatine Kinase Troponin I High Sens 140.7 H* Total Protein Albumin Urine Color Dark Yellow Urine Appearance Clear Urine pH 5.0 Ur Specific [place] 1.020 Urine Protein 30 (1+) H Urine Glucose (UA) Negative Urine Ketones Negative Urine Blood Large (3+) H Urine Nitrite Negative Ur Leukocyte Esterase Negative Urine RBC 11-20 H Urine WBC 0-5 Ur Squamous Epith Cells 0-2 Urine Bacteria None Seen Hyaline Casts 3-5 Salicylates Urine Opiates Screen Not Detected Urine Fentanyl Screen POSITIVE H Acetaminophen Ur Barbiturates Screen Not Detected Ur Phencyclidine Scrn Not Detected Ur Amphetamines Screen Not Detected U Benzodiazepines Scrn Not Detected Urine Cocaine Screen POSITIVE H U Marijuana (THC) Screen Not Detected Ethyl Alcohol Hepatitis A IgM Ab Hep Bs Antigen Hep Bs Antibody Hep B Core Total Ab Hepatitis C Ab (EIA) 12/30/22 12/30/22 12/30/22 13:38 15:18 15:18 MCV MCH MCHC RDW Plt Count MPV Immature Gran % (Auto) Neut % (Auto) Lymph % (Auto) [place] % (Auto) Eos % (Auto) Baso % (Auto) Lymph # (Auto) [place] # (Auto) Eos # (Auto) Baso # (Auto) Abs Immat Gran (auto) Absolute Neuts (auto) Absolute Nucleated RBC Nucleated RBC % (auto) Smear Tech's Comments PT INR APTT Anion Gap Estim Creat Clear Calc Estimated GFR Random Glucose Estimat Average Glucose Hemoglobin A1c % Lactic Acid 1.8 Calcium Phosphorus Magnesium Total Bilirubin Direct Bilirubin AST ALT Alkaline Phosphatase Total Creatine Kinase Troponin I High Sens 160.7 H* Total Protein Albumin Urine Color Urine Appearance Urine pH Ur Specific [place] Urine Protein Urine Glucose (UA) Urine Ketones Urine Blood Urine Nitrite Ur Leukocyte Esterase Urine RBC Urine WBC Ur Squamous Epith Cells Urine Bacteria Hyaline Casts Salicylates < 5.0 L Urine Opiates Screen Urine Fentanyl Screen Acetaminophen < 17 Ur Barbiturates Screen Ur Phencyclidine Scrn Ur Amphetamines Screen U Benzodiazepines Scrn Urine Cocaine Screen U Marijuana (THC) Screen Ethyl Alcohol Hepatitis A IgM Ab Hep Bs Antigen Hep Bs Antibody Hep B Core Total Ab Hepatitis C Ab (EIA) 12/30/22 12/30/22 12/31/22 15:18 15:18 06:26 MCV MCH MCHC RDW Plt Count MPV Immature Gran % (Auto) Neut % (Auto) Lymph % (Auto) [place] % (Auto) Eos % (Auto) Baso % (Auto) Lymph # (Auto) [place] # (Auto) Eos # (Auto) Baso # (Auto) Abs Immat Gran (auto) Absolute Neuts (auto) Absolute Nucleated RBC Nucleated RBC % (auto) Smear Tech's Comments PT INR APTT Anion Gap 17 Estim Creat Clear Calc 22.7 Estimated GFR 23 Random Glucose 136 H Estimat Average Glucose 105 Hemoglobin A1c % 5.3 Lactic Acid Calcium 8.5 D Phosphorus Magnesium Total Bilirubin 1.2 H Direct Bilirubin AST 1030 H ALT 426 H Alkaline Phosphatase 46 Total Creatine Kinase 21665 H Troponin I High Sens Total Protein 5.9 L Albumin 3.1 L Urine Color Urine Appearance Urine pH Ur Specific [place] Urine Protein Urine Glucose (UA) Urine Ketones Urine Blood Urine Nitrite Ur Leukocyte Esterase Urine RBC Urine WBC Ur Squamous Epith Cells Urine Bacteria Hyaline Casts Salicylates Urine Opiates Screen Urine Fentanyl Screen Acetaminophen Ur Barbiturates Screen Ur Phencyclidine Scrn Ur Amphetamines Screen U Benzodiazepines Scrn Urine Cocaine Screen U Marijuana (THC) Screen Ethyl Alcohol Hepatitis A IgM Ab Nonreactive Hep Bs Antigen Negative Hep Bs Antibody REACTIVE Hep B Core Total Ab Nonreactive Hepatitis C Ab (EIA) Nonreactive 12/31/22 12/31/22 06:27 06:27 MCV 87.9 MCH 30.2 MCHC 34.4 RDW 12.7 Plt Count 165 MPV 10.2 Immature Gran % (Auto) Neut % (Auto) Lymph % (Auto) [place] % (Auto) Eos % (Auto) Baso % (Auto) Lymph # (Auto) [place] # (Auto) Eos # (Auto) Baso # (Auto) Abs Immat Gran (auto) Absolute Neuts (auto) Absolute Nucleated RBC 0.000 Nucleated RBC % (auto) 0.0 Smear Tech's Comments PT INR APTT Anion Gap 15 Estim Creat Clear Calc 35.1 Estimated GFR 37 Random Glucose 124 H Estimat Average Glucose Hemoglobin A1c % Lactic Acid Calcium 8.8 Phosphorus Magnesium Total Bilirubin 1.6 H Direct Bilirubin AST 729 H ALT 344 H Alkaline Phosphatase 44 Total Creatine Kinase 15804 H Troponin I High Sens Total Protein 5.9 L Albumin 3.0 L Urine Color Urine Appearance Urine pH Ur Specific [place] Urine Protein Urine Glucose (UA) Urine Ketones Urine Blood Urine Nitrite Ur Leukocyte Esterase Urine RBC Urine WBC Ur Squamous Epith Cells Urine Bacteria Hyaline Casts Salicylates Urine Opiates Screen Urine Fentanyl Screen Acetaminophen Ur Barbiturates Screen Ur Phencyclidine Scrn Ur Amphetamines Screen U Benzodiazepines Scrn Urine Cocaine Screen U Marijuana (THC) Screen Ethyl Alcohol Hepatitis A IgM Ab Hep Bs Antigen Hep Bs Antibody Hep B Core Total Ab Hepatitis C Ab (EIA) Assessment and Plan (1) Toxic encephalopathy: Status: Acute (2) ELYSE (acute kidney injury): Status: Acute (3) Transaminitis: Status: Acute (4) Acute renal failure: Status: Acute (5) Rhabdomyolysis: Status: Acute Plan ?62-year-old male with a PMH significant for?previous stroke and polysubstance use disorder who presents to the ED with?generalized whole body weakness and pain since this morning.? Patient is a long-time daily user of cocaine and fentanyl, states yesterday he snorted a little over 1 g of cocaine likely laced with fentanyl and then passed out.? Patient was on the floor for an unknown period of ?many hours?. Pt was treated with IVF, cefepime, and started on a bicarb drip. Pt will be admitted to the hospital for treatment further evaluation of ELYSE secondary to rhabdomyolysis in the setting of cocaine use disorder. toxic metabolic encephalopathy and Rhabdomyolysis Likely secondary to cocaine use Patient states yesterday he was using cocaine when he passed out, lay on the floor for ?hours?, definitive timeline not known has body pains/legs pains CPK >[id number] -improving now in 22k range tox screen-positive for cocaine and fentanyl Pt given IVF and startd on bicarb 150meq in dextrose @100 mls/hr in ED Continue bicarb drip,added gabapentine ,PT evaluation Follow BMP ELYSE Pt's creatinine 1.85 Likely secondary to rhabdomyolysis Treat as above Follow BMP Transaminitis Most likely secondary to cocaine use Check right upper quadrant ultrasound hepatitis panel, salicylate, acetaminophen levels-seems fine. Follow CMP toxid metabolic encephalopathy/Abnormal CTA Patient not complaining of headache, facial pain, vision changes possible related to drug use Pt eval turn,oob conitnue rhabo management. Leukocytosis: trending down blood cultures pending Possibly reactionary, no clear source of infection Will empirically start on cefepime 1 g q.12 Cocaine use disorder Pt uses cocaine daily Addiction medicine consult Hyponatremia Pt's sodium 131 at time of admission Pt received IVF in ED Follow BMP hyperkalemia: seems related to rhabdo -resolved with bicarb drip. Full Code DVT Prophylaxis: Pneumatic boots inpatient need: treatment of?ELYSE secondary to rhabdomyolysis in the setting of cocaine use disorder with IVF and bicarb drip. Time Spent With Patient Time: Total time managing care of this patient today ____ minutes. Quality Stroke Does the patient have a stroke diagnosis?: No VTE Prior VTE?: No VTE Risk Level:: Medical - moderate - high VTE Device Contraindication: N/A - Device Ordered VTE Drug Contraindication: Treatment Not Indicated
--- NOTE | 2022-12-31 13:00 | CA_ITS ---
Transthoracic Echocardiogram Patient (Last, First, Middle): John John, Gender: Male Date of : 1960 Age: 62 Procedure Date: 12/31/2022 Procedure Type: Transthoracic Echocardiogram Location: [facility] [place] Height: 162.56 cm Weight: 67.59 kg BSA: 1.73 m2 Heart Rate: bpm BP: 117 / 77 mmHg Salon Customer Experience Specialist: Referring MD: Braulio Gaffney MD Claim Technician: Ez Cameron MD Symptoms: elevated troponins Study Quality: Fair ECG Rhythm: Sinus Conclusions: - Essentially normal study Findings Left Ventricle Normal left ventricular size, thickness, and systolic function. The visually estimated ejection fraction is between 55-60%. Spectral Doppler is indicative of a normal filling pattern. Right Ventricle Normal right ventricular cavity size and systolic function. Atria Both atria are normal in size. Interatrial shunt cannot be excluded. Aortic Valve Normal aortic valve structure and function. There is no aortic valve stenosis. There is no aortic valve regurgitation. Mitral Valve Normal mitral valve structure and function. There is trace mitral valve regurgitation. There is no mitral valve stenosis. Pulmonic Valve The pulmonic valve was not well visualized. Tricuspid Valve Likely normal tricuspid valve structure and function. There is trace tricuspid valve regurgitation. The right ventricular systolic pressure is normal. The right ventricular systolic pressure is 28 mmHg. Normal right atrial pressure. There is no evidence of pulmonary hypertension. Great Vessels All visible segments of the aorta are normal in size. The pulmonary artery was not well visualized. Venous The inferior vena cava is normal in size and collapses greater than 50% with inspiration. Pericardium/Pleural There is no evidence of pericardial effusion. Prior Study Comparison No prior study available for comparison. Measurements 2D Linear Measurements IVSd: 0.70 0.6-0.9/0.6-1.0 cm LVIDd: 4.40 3.9-5.3/4.2-5.9 cm LVIDd Index: 2.54 2.4-3.2/2.2-3.1 cm/m2 LVIDs: 2.40 2.0-3.6 cm Ao Root: 3.00 2.1-3.5 cm LA Diam: 2.60 2.7-3.8/3.0-4.0 cm LAIDs Index: 1.50 1.5-2.3 cm/m2 LVOT Diam: 2.20 3.0+(-)1.3 cm 2D Systolic Function EF 4C: 53.00 >55% EF 2C: 67.40 >55% EF BiP: 59.00 >55% Mitral Valve MV Pk E: 0.58 MV PK A: 0.74 MV Decel Time: 151.00 E/A: 0.80 E'Lateral: 14.60 E'Medial: 9.57 E/E' Med: 6.00 E/E' Lat: 3.90 PHT: 44.00 MVA PHT: 5.00 Decel [place]: 3.81 Aortic Valve AoV Pk Jordon: 1.45 AoV Mn Jordon: 0.96 AoV VTI: 0.28 AoV Pk Grad: 8.00 Aov Mn Grad: 4.00 DYLLAN Cont.VTI: 2.40 LVOT LVOT Pk Jordon: 1.12 LVOT Mn Jordon: 0.68 LVOT VTI: 0.18 LVOT Pk Grad: 5.00 LVOT Mn Grad: 2.00 LVOT Diam: 2.20 LVOT Area: 3.80 Diastolic Function MV Pk E: 0.58 MV Pk A: 0.74 E/A: 0.80 E'Medial: 9.57 E/E' Med: 6.00 E' Laterial: 14.60 E/E' Lat: 3.90 Right Ventricle TAPSE (mm): 25.00 Tricuspid Valve TR Pk Jordon: 2.49 TR Pk Grad: 25.00 RA Press: 3.00 RVSP: 28.00 Great Vessels Aorta Ao Root-2D: 3.00 2.0-3.7 cm Ao Asc: 3.00 2.1-3.4 cm Pulmonary Valve PV Pk Jordon: 1.31 Peak PV Grad: 7.00 Updated in Other Vendor System with Status of Final Ez Cameron MD electronically signed on 12/31/2022 4:25:43 PM with status of Final
--- NOTE | 2022-12-31 14:00 | MHC.RECOVRN ---
Attempted to meet with pt in [id number] after consult placed to Addiction Medicine. Pt presented to [facility] [place] ED on 12/30 for possible stroke. Pt ultimately admitted for treatment and further evaluation of ELYSE secondary to rhabdomyolysis in the setting of cocaine use disorder as well as toxic encephalopathy. Pt laying in bed, eyes closed, does not wake to voice. Pt briefly wakes to touch but quickly falls back asleep. When asked how pt is feeling, pt only able to state cold and in pain before falling back to sleep. Pt was able to report using cocaine, 1 gram daily, unable to stay awake to report more information. RN aware of pts somnolence. Discussed with Xiao Garcia APRN.
--- NOTE | 2022-12-31 15:35 | MHC.CM.PN ---
EMR REVIEWED, PT W/RHABDO, PER P.T. PT WILL NEED STR HOWEVER IS UNABLE TO EVEN STAND AT THIS TIME AND IS RECOMMENDED TRAE LIFT FOR TRANSFERS AT THIS TIME. 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 ALTHOUGH PT DID NOT PARTICIPATE IN MOST OF ASSESSMENT CM PROVIDED PT W/413 [employer] GUIDE.
--- NOTE | 2022-12-31 16:44 | PM.EVENT ---
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 Time Spent With Patient Time: Total time managing care of this patient today ____ minutes.
[2023-01-01] VITALS (7 sets, daily range): BP systolic 106–134; BP diastolic 64–69; PULSE 71–99; RESP 16–20; TEMP 36.1–37.1; O2SAT 93–97
[2023-01-01] MEDS: cefEPime HCl 1 GM in 0.9 % Sodium Chloride 50 ML IV ×2 (01:26→14:12)
[2023-01-01] MEDS: Sodium Bicarbonate 8.4% 150 MEQ in Dextrose 5 % 850 ML 100 MEQ IV (06:22)
--- NOTE | 2023-01-01 08:34 | PM.PNNEP ---
Subjective Subjective Date of Service: 01/01/23 Interval history: seen and examined no complaints Physical Exam Vital Signs: Vital Signs: Last Vital Signs Temp 98 F 01/01/23 07:47 Pulse 99 01/01/23 07:47 Resp 20 01/01/23 07:47 BP 106/64 01/01/23 07:47 Pulse Ox 96 01/01/23 07:47 O2 Del Method Room Air 01/01/23 07:47 BMI result Body Mass Index 25.7 Const: General: alert and awake HEENT: Head: Yes normocephalic and Yes atraumatic Neck: Neck: Yes supple Resp: Auscultation: diminished lung sounds Cardio: Heart sounds: S1 normal heart sound present and S2 normal heart sound present GI: Palpation (GI): Soft to palpation and nontender Extrem: Right upper extremity: no edema Objective Data Labs 12/31/22 06:27 12/31/22 06:27 Labs: Laboratory Results - last 24 hr 12/31/22 06:27 Total Creatine Kinase 63902 H Microbiology Microbiology Results: Microbiology 12/30/22 13:55 Blood - Venous Blood Culture - Preliminary No growth after 24 hours. 12/30/22 13:38 Blood - Venous Blood Culture - Preliminary No growth after 24 hours. Procedures Date of Service Date of Service: 01/01/23 Assessment & Plan Assessment and plan (1) ELYSE (acute kidney injury): Status: Acute (2) Rhabdomyolysis: Status: Acute Plan Scr better ELYSE due to heme pigment nephrotoxicity in the setting of cocaine use other less likely normal baseline kidney function REC IVF to 0.9% 125 cc/hr follow cpk monitor urine output follow kidney function and electrolytes Time Spent With Patient Time: Total time managing care of this patient today ____ minutes. Progress Note: Quality Stroke Does the patient have a stroke diagnosis?: No
[2023-01-01 08:42] LABS: Alanine Aminotransferase 296 U/L (0-40); Alkaline Phosphatase 41 U/L (39-117); Anion Gap 13 (12-20); Aspartate Amino Transferase 611 U/L (5-37); Bilirubin Total 1.5 mg/dL (0.0-1.0); Blood Urea Nitrogen 32 mg/dL (9-16); Calcium 8.5 mg/dL (8.4-10.2); Carbon Dioxide 31 mmol/L (22-29); Chloride 98 mmol/L (96-108); Creatinine Clr Calc Pharmacy 65.6; Estimated Glomerular Filt Rate > 60; Glucose Random 119 mg/dL (60-115); Potassium 3.3 mmol/L (3.3-5.1); Sodium 139 mmol/L (135-145)
[2023-01-01] MEDS: Aspirin 81 MG TAB.CHEW PO (08:50)
[2023-01-01] MEDS: Gabapentin 100 MG CAPSULE PO ×3 (08:50→19:57)
[2023-01-01] MEDS: 0.9 % Sodium Chloride Flush 3 ML SYRINGE IVFLUSH (08:50)
--- NOTE | 2023-01-01 12:07 | P.PNIM_ITS ---
Subjective Subjective Date of Service: 01/01/23 Interval History: Toxic metabolic encephalopathy Review of Systems menatal status seems improving has body pains,leg pain Denies any cough or shortness of breath or chest pain Physical Exam Vital Signs: Vital Signs: Last Vital Signs Temp 97.6 F 01/01/23 12:00 Pulse 80 01/01/23 12:00 Resp 18 01/01/23 12:00 BP 134/69 01/01/23 12:00 Pulse Ox 94 01/01/23 12:00 O2 Del Method Room Air 01/01/23 12:00 BMI result Body Mass Index 25.7 Appearance: Alert.? Oriented 2-3.? not in distress.? cvs: rrr, [id number]. res: clear to auscultation ,no rhonchii or wheezing abd: no rebound or guarding ,nt, bs present. ext pulses present , no cyanosis . neuro: axo3 , nonfocal. Objective Data Active Medications Aspirin (Aspirin 81 Mg Tab.Chew) 81 mg PO DAILY [facility] Last Admin: 01/01/23 08:50 Dose: 81 mg Documented By: PANCHITO Gabapentin (Gabapentin 100 Mg Capsule) 100 mg PO BID [facility] Last Admin: 01/01/23 08:50 Dose: 100 mg Documented By: PANCHITO Sodium Bicarbonate 150 meq/ (Dextrose) 1,000 mls @ 100 mls/hr IV .Q10H [facility] Last Admin: 01/01/23 06:22 Dose: 100 mls/hr Documented By: JLUIS Cefepime HCl 1 gm/ Sodium (Chloride) 50 mls @ 100 mls/hr IV Q12H [facility] Last Infusion: 01/01/23 01:59 Dose: 0 mls/hr Documented By: JLUIS Ondansetron HCl (Ondansetron Hcl 4 Mg/2 Ml Vial) 4 mg IVPUSH Q8H PRN PRN Reason: Nausea and Vomiting Pharmacy Consult (Consult Rx Perform Med Rec) 1 each MISCELLANE ONCE PRN PRN Reason: Consult order Sodium Chloride (0.9 % Sodium Chloride Flush 3 Ml Syringe) 3 ml IVFLUSH QSHIFT [facility] Last Admin: 01/01/23 08:50 Dose: 3 ml Documented By: PANCHITO Labs 12/31/22 06:27 01/01/23 07:58 Labs: Laboratory Results - last 24 hr 01/01/23 07:58 Anion Gap 13 Estim Creat Clear Calc 65.6 Estimated GFR > 60 Random Glucose 119 H Calcium 8.5 Total Bilirubin 1.5 H AST 611 H ALT 296 H Alkaline Phosphatase 41 Total Creatine Kinase 50623 H Total Protein 6.0 L Albumin 3.0 L Microbiology Microbiology Results: Microbiology 12/30/22 13:55 Blood Culture - Preliminary Blood - Venous No growth after 24 hours. 12/30/22 13:38 Blood Culture - Preliminary Blood - Venous No growth after 24 hours. Assessment and Plan (1) Toxic encephalopathy: Status: Acute (2) ELYSE (acute kidney injury): Status: Acute (3) Transaminitis: Status: Acute (4) Acute renal failure: Status: Acute (5) Rhabdomyolysis: Status: Acute Plan ?62-year-old male with a PMH significant for?previous stroke and polysubstance use disorder who presents to the ED with?generalized whole body weakness and pain since this morning.? Patient is a long-time daily user of cocaine and fentanyl, states yesterday he snorted a little over 1 g of cocaine likely laced with fentanyl and then passed out.? Patient was on the floor for an unknown period of ?many hours?. Pt was treated with IVF, cefepime, and started on a bicarb drip. Pt will be admitted to the hospital for treatment further evaluation of ELYSE secondary to rhabdomyolysis in the setting of cocaine use disorder. toxic metabolic encephalopathy and Rhabdomyolysis Likely secondary to cocaine use Patient states yesterday he was using cocaine when he passed out, lay on the floor for ?hours?, definitive timeline not known has body pains/legs pains CPK >[id number]- 22k -15k tox screen-positive for cocaine and fentanyl Pt given IVF changed ns @125ml adjusted gabapentine ,PT evaluation Follow BMP AKILikely secondary to rhabdomyolysis improved with ivf. Follow BMP Transaminitis Most likely secondary to cocaine use Check right upper quadrant ultrasound-seems fine. hepatitis panel, salicylate, acetaminophen levels-seems fine. Follow CMP toxid metabolic encephalopathy/Abnormal CTA Patient not complaining of headache, facial pain, vision changes possible related to drug use Pt eval turn,oob conitnue rhabo management. Leukocytosis: trending down blood cultures pending Possibly reactionary, no clear source of infection continue on cefepime 1 g q.12 Leg pains /body pains : Likely due to rhabdo secondary to cocaine use. Added venous duplex Seen by orthopedics-compartments are soft-less likely compartment syndrome, no further workup at present. oob ,OT eval Cocaine use disorder Pt uses cocaine daily Addiction medicine consult Hyponatremia: likely due to dehydration resolved with received IVF in ED Follow BMP hyperkalemia: seems related to rhabdo -resolved with bicarb drip. Full Code DVT Prophylaxis: Pneumatic boots inpatient need: treatment of?ELYSE secondary to rhabdomyolysis - on ivf ,need bmp /cpk levels moniterin Time Spent With Patient Time: Total time managing care of this patient today ____ minutes. Quality Stroke Does the patient have a stroke diagnosis?: No VTE Prior VTE?: No VTE Risk Level:: Medical - moderate - high VTE Device Contraindication: N/A - Device Ordered VTE Drug Contraindication: Treatment Not Indicated
[2023-01-01] MEDS: 0.9 % Sodium Chloride 1,000 ML 125 ML IVCONT ×2 (12:28→19:32)
[2023-01-01] MEDS: Melatonin 3 MG TABLET 6 MG PO (16:41)
--- NOTE | 2023-01-01 19:00 | PC.NURSE ---
Patient is alert and oriented to person, place, time and situation. Patient presented with signs of anxious, agitated, constantly yelling for nurse repeatedly through out shift. Patient repeatedly move from bed to chair and frequent repositioning. Pt claims he wants to walk in hammer but when reposition to chair he is a two person assist with walker to ambulated to chair. After lunch patient placed in bed for evening, and demonstrates he can roll from side to side himself and can reach for the phone and water, but constant calls for help to to be repositioned. Patient encouraged to reposition himself as he comes from home prior to admission. Patient received prn melatonin see Mar and slept for a few hours in the evening. Excessive rounding to make sure needs are met, bead alarm on, call guzmán in reach, camera in room.
[2023-01-01 21:36] LABS: Glucose, Whole Blood 106 mg/dL (60-115)
[2023-01-02] MEDS: cefEPime HCl 1 GM in 0.9 % Sodium Chloride 50 ML IV ×2 (00:17→13:09)
[2023-01-02] MEDS: 0.9 % Sodium Chloride Flush 3 ML SYRINGE IVFLUSH ×2 (00:21→08:05)
--- NOTE | 2023-01-02 01:10 | PC.NURSE ---
Patient c/o pain, notified as no pain meds were ordered. Patient had requested Tylenol with Codeine, which MD Prabhakar ordered. Pharmacy subsequently noted patient had allergies to both Tylenol and Codeine listed with rash and itch as reaction. Patient denied having these allergies. notified and clarification requested if she would like us to process the order. replied, If pt denies, then we should remove it . Pharmacy called and notified of MD recommendation. Pharmacist stated she will process the order and arrange for allergy to be removed from record.
[2023-01-02] MEDS: 0.9 % Sodium Chloride 1,000 ML 125 ML IVCONT ×3 (03:44→20:38)
[2023-01-02 03:45] VITALS: BP 111/69; PULSE 60; RESP 18; TEMP 36.9; O2SAT 96
--- NOTE | 2023-01-02 05:24 | PC.NURSE ---
Patient yelling out often, demanding staff do things for him such as cover his upper body with blankets but moves arms to show what he wants done. Asks to have me pull linens from under buttocks while yelling and lifts buttocks off bed himself and then states he cannot move at all whatsoever in the bed. Asks staff to roll him but patient found in different positions from left to right side on his own during the night when checked on. stiffens arm to make BP difficult for HAM FACER, but able to reach for items on bedside table.
[2023-01-02 06:51] LABS: Alanine Aminotransferase 276 U/L (0-40); Albumin Level 2.9 g/dL (3.5-5.0); Alkaline Phosphatase 39 U/L (39-117); Anion Gap 9 (12-20); Aspartate Amino Transferase 527 U/L (5-37); Bilirubin Total 1.7 mg/dL (0.0-1.0); Blood Urea Nitrogen 23 mg/dL (9-16); Calcium 8.8 mg/dL (8.4-10.2); Carbon Dioxide 27 mmol/L (22-29); Chloride 108 mmol/L (96-108); Creatinine Clr Calc Pharmacy 80.1; Estimated Glomerular Filt Rate > 60; Glucose Random 88 mg/dL (60-115); Potassium 3.7 mmol/L (3.3-5.1); Sodium 140 mmol/L (135-145); Total Protein 5.7 g/dL (6.5-8.0)
[2023-01-02 07:50] VITALS: BP 124/79; PULSE 69; RESP 20; TEMP 37.4; O2SAT 98
--- NOTE | 2023-01-02 08:02 | PM.PNNEP ---
Subjective Subjective Date of Service: 01/02/23 Interval history: seen and examined c/o pain denies chest pain, SOB, N/V/D Physical Exam Vital Signs: Vital Signs: Last Vital Signs Temp 99.3 F 01/02/23 07:50 Pulse 69 01/02/23 07:50 Resp 20 01/02/23 07:50 BP 124/79 01/02/23 07:50 Pulse Ox 98 01/02/23 07:50 O2 Del Method Room Air 01/02/23 07:50 BMI result Body Mass Index 25.7 Const: General: alert and awake HEENT: Head: Yes normocephalic and Yes atraumatic Neck: Neck: Yes supple Resp: Auscultation: diminished lung sounds Cardio: Heart sounds: S1 normal heart sound present and S2 normal heart sound present GI: Palpation (GI): Soft to palpation and nontender Extrem: Right upper extremity: no edema Objective Data Labs 12/31/22 06:27 01/02/23 05:49 Labs: Laboratory Results - last 24 hr 01/01/23 01/01/23 01/02/23 07:58 21:25 05:49 Sodium 139 140 Potassium 3.3 D 3.7 Chloride 98 108 Carbon Dioxide 31 H 27 Anion Gap 13 9 L BUN 32 H 23 H Creatinine 0.99 0.81 Estim Creat Clear Calc 65.6 80.1 Estimated GFR > 60 > 60 POC Glucose 106 Random Glucose 119 H 88 Calcium 8.5 8.8 Total Bilirubin 1.5 H 1.7 H AST 611 H 527 H ALT 296 H 276 H Alkaline Phosphatase 41 39 Total Creatine Kinase 51049 H 35587 H Total Protein 6.0 L 5.7 L Albumin 3.0 L 2.9 L Microbiology Microbiology Results: Microbiology 12/30/22 13:55 Blood - Venous Blood Culture - Preliminary No growth after 48 hours. 12/30/22 13:38 Blood - Venous Blood Culture - Preliminary No growth after 48 hours. Procedures Date of Service Date of Service: 01/02/23 Assessment & Plan Assessment and plan (1) ELYSE (acute kidney injury): Status: Acute (2) Rhabdomyolysis: Status: Acute Plan kidney function normalized cpk trending down ELYSE due to heme pigment nephrotoxicity in the setting of cocaine use normal baseline kidney function REC c/w IVF to 0.9% 125 cc/hr follow cpk follow kidney function and electrolytes Time Spent With Patient Time: Total time managing care of this patient today ____ minutes. Progress Note: Quality Stroke Does the patient have a stroke diagnosis?: No
[2023-01-02] MEDS: Aspirin 81 MG TAB.CHEW PO (08:05)
[2023-01-02] MEDS: Gabapentin 100 MG CAPSULE PO ×2 (08:05→20:37)
--- NOTE | 2023-01-02 09:04 | P.CONOP_ITS ---
History of Present Illness HPI Consult date: 01/01/23 Chief complaint: Rhabdomyolysis, ELYSE Narrative: Pt is a 62-year-old male with a PMH significant for?previous stroke and polysubstance use disorder who presents to the ED with?generalized whole body weakness and pain since this morning.? Patient is a long-time daily user of cocaine and fentanyl, states yesterday he snorted a little over 1 g of cocaine likely laced with fentanyl and then passed out.? Patient was on the floor for an unknown period of ?many hours?. Pt awoke this morning and found he could barely move. Dragged himself across his floor to his door and was able to get the attention of his neighbor who called EMS. He was addmitted to the medicine service with orthopedic consult for concern of compartment syndrome of the left calf. Review of Systems Review of Systems: Yes all other systems are reviewed and are negative [facility] Surgical History Surgical History H/O inguinal hernia repair S/P laparoscopic appendectomy (05/19/22) Social History Social History Household Members: None Household Members Other:: 1 Housing: Apartment Do you presently have visiting nurse or other home services: No Patient Tobacco Use Status: Former Tobacco user Quit Date: 1978 Tobacco use type: Cigarette Smoked in Last 30 Days: No Use of substances other than those prescribed or required for medical reasons: Yes Substance Use Type: Crack/Cocaine Substance Use Frequency: Daily Last Used Substance: Hours (ago) Currently Displaying Signs/Symptoms of Drug Intoxication Withdrawal: No Any prior treatment program specific to substance use: No Have you been hit, kicked, punched, or otherwise hurt by someone within the past year? If so, by whom?: No Advance Directives: No Do you have thoughts of harming others: None Do you have a plan to hurt others: No Plan service: No Current occupational status: disabled Meds Allergies Allergy/AdvReac Type Severity Reaction Status Date / Time acetaminophen Allergy Unknown RASH, ITCHY Verified 06/03/22 14:29 [From Tylenol-Codeine] codeine Allergy Unknown RASH, ITCHY Verified 06/03/22 14:29 [From Tylenol-Codeine] Penicillins Allergy Unknown RASH, ITCHY Verified 06/03/22 14:29 Active Medications: Current Medications Aspirin (Aspirin 81 Mg Tab.Chew) 81 mg PO DAILY [facility] Last Admin: 01/02/23 08:05 Dose: 81 mg Gabapentin (Gabapentin 100 Mg Capsule) 100 mg PO BID [facility] Last Admin: 01/02/23 08:05 Dose: 100 mg Cefepime HCl 1 gm/ Sodium (Chloride) 50 mls @ 100 mls/hr IV Q12H [facility] Last Infusion: 01/02/23 00:51 Dose: Infused Sodium Chloride (Ns) 1,000 mls @ 125 mls/hr IVCONT .Q8H [facility] Last Admin: 01/02/23 03:44 Dose: 125 mls/hr Melatonin (Melatonin 3 Mg Tablet) 6 mg PO BEDTIME PRN PRN Reason: Insomnia Last Admin: 01/01/23 16:41 Dose: 6 mg Ondansetron HCl (Ondansetron Hcl 4 Mg/2 Ml Vial) 4 mg IVPUSH Q8H PRN PRN Reason: Nausea and Vomiting Pharmacy Consult (Consult Rx Perform Med Rec) 1 each MISCELLANE ONCE PRN PRN Reason: Consult order Sodium Chloride (0.9 % Sodium Chloride Flush 3 Ml Syringe) 3 ml IVFLUSH QSHIFT [facility] Last Admin: 01/02/23 08:05 Dose: 3 ml Home Medications Medication Instructions Recorded Confirmed Last Taken Type No Known Home Meds 06/04/22 12/30/22 Unknown History Physical Exam Vital Signs: Vital Signs: Last Vital Signs Temp 99.3 F 01/02/23 07:50 Pulse 69 01/02/23 07:50 Resp 20 01/02/23 07:50 BP 124/79 01/02/23 07:50 Pulse Ox 98 01/02/23 07:50 O2 Del Method Room Air 01/02/23 07:50 BMI result Body Mass Index 25.7 Const: General: cooperative, healthy appearing and no acute distress Resp: Effort & Inspection: normal respiratory effort and able to speak in complete sentences Cardio: Rate: regular rate Peripheral pulses: Peripheral pulses 2+ throughout GI: Palpation (GI): Soft to palpation Skin: Lesions: no lesions Rashes: no rashes Extrem: Other: Left calf is supple. Patient falls asleep on exam. Compartments are all compressible. Patient does not respond to pain with passive dorsi/plantar flex. Pedal pulse intact. Sensation reportedly intact. Results Labs 12/31/22 06:27 01/02/23 05:49 Labs: Abnormal lab results 01/02/23 Range/Units 05:49 Anion Gap 9 L (12-20) BUN 23 H (9-16) mg/dL Total Bilirubin 1.7 H (0.0-1.0) mg/dL AST 527 H (5-37) U/L ALT 276 H (0-40) U/L Total Creatine Kinase 84244 H (38-174) U/L Total Protein 5.7 L (6.5-8.0) g/dL Albumin 2.9 L (3.5-5.0) g/dL H & H 12/30/22 12/31/22 Range/Units 12:02 06:27 Hgb 15.3 D 14.0 (14.0-18.0) g/dl Hct 44.5 40.7 L (42.0-52.0) % Coagulation 12/30/22 Range/Units 12:02 INR 1.0 (0.9-1.1) All other labs normal. Assessment and Plan (1) Rhabdomyolysis: Status: Acute Plan No evidence of compartment syndrom at this time. Likely reprofusion injury. No additional orthopedic intervention needed. Please reconsult if needed. Time Spent With Patient Time: Total time managing care of this patient today ____ minutes. Procedures Date of Service Date of Service: 01/02/23
--- NOTE | 2023-01-02 09:05 | PC.NURSE ---
patient is alert and oriented to self, time, situation and place. Patient uses call guzmán excessively and yells and screams for nurses. Patient asked to be repositioned frequently though able to move in bed independently, Patient moved to chair @9 am after found at the side of bed and trying to get up to walk. 10 minutes later patient found sitting up in the chair and asking to go back to bed. Table positioned in front of patient and set up to use hospital phone. Patient up to chair, chair alarm on and call guzmán in reach. Excessive rounding to make sure needs are met and for safety.
--- NOTE | 2023-01-02 09:23 | HO.PM.IMPN ---
Subjective Subjective Date of Service: 01/02/23 Interval History: Toxic metabolic encephalopathy Review of Systems mental status seems improving has body pains,leg pain-seems somewhat improving Denies any cough or shortness of breath or chest pain Physical Exam Vital Signs: Vital Signs: Last Vital Signs Temp 99.3 F 01/02/23 07:50 Pulse 69 01/02/23 07:50 Resp 20 01/02/23 07:50 BP 124/79 01/02/23 07:50 Pulse Ox 98 01/02/23 07:50 O2 Del Method Room Air 01/02/23 07:50 BMI result Body Mass Index 25.7 Appearance: Alert.? Oriented 2-3.? not in distress.? cvs: rrr, [id number]. res: clear to auscultation ,no rhonchii or wheezing abd: no rebound or guarding ,nt, bs present. ext pulses present , no cyanosis . neuro: axo3 , nonfocal. Objective Data Active Medications Aspirin (Aspirin 81 Mg Tab.Chew) 81 mg PO DAILY [facility] Last Admin: 01/02/23 08:05 Dose: 81 mg Documented By: PANCHITO Gabapentin (Gabapentin 100 Mg Capsule) 100 mg PO BID [facility] Last Admin: 01/02/23 08:05 Dose: 100 mg Documented By: PANCHITO Cefepime HCl 1 gm/ Sodium (Chloride) 50 mls @ 100 mls/hr IV Q12H [facility] Last Infusion: 01/02/23 00:51 Dose: 0 mls/hr Documented By: JUAN Sodium Chloride (Ns) 1,000 mls @ 125 mls/hr IVCONT .Q8H [facility] Last Admin: 01/02/23 03:44 Dose: 125 mls/hr Documented By: JUAN Melatonin (Melatonin 3 Mg Tablet) 6 mg PO BEDTIME PRN PRN Reason: Insomnia Last Admin: 01/01/23 16:41 Dose: 6 mg Documented By: PANCHITO Ondansetron HCl (Ondansetron Hcl 4 Mg/2 Ml Vial) 4 mg IVPUSH Q8H PRN PRN Reason: Nausea and Vomiting Pharmacy Consult (Consult Rx Perform Med Rec) 1 each MISCELLANE ONCE PRN PRN Reason: Consult order Sodium Chloride (0.9 % Sodium Chloride Flush 3 Ml Syringe) 3 ml IVFLUSH QSHIFT [facility] Last Admin: 01/02/23 08:05 Dose: 3 ml Documented By: PANCHITO Labs 12/31/22 06:27 01/02/23 05:49 Labs: Laboratory Results - last 24 hr 01/01/23 01/02/23 21:25 05:49 Anion Gap 9 L Estim Creat Clear Calc 80.1 Estimated GFR > 60 POC Glucose 106 Random Glucose 88 Calcium 8.8 Total Bilirubin 1.7 H AST 527 H ALT 276 H Alkaline Phosphatase 39 Total Creatine Kinase 00575 H Total Protein 5.7 L Albumin 2.9 L Microbiology Microbiology Results: Microbiology 12/30/22 13:55 Blood Culture - Preliminary Blood - Venous No growth after 48 hours. 12/30/22 13:38 Blood Culture - Preliminary Blood - Venous No growth after 48 hours. Assessment and Plan (1) Toxic encephalopathy: Status: Acute (2) ELYSE (acute kidney injury): Status: Acute (3) Transaminitis: Status: Acute (4) Acute renal failure: Status: Acute (5) Rhabdomyolysis: Status: Acute Plan ?62-year-old male with a PMH significant for?previous stroke and polysubstance use disorder who presents to the ED with?generalized whole body weakness and pain since this morning.? Patient is a long-time daily user of cocaine and fentanyl, states yesterday he snorted a little over 1 g of cocaine likely laced with fentanyl and then passed out.? Patient was on the floor for an unknown period of ?many hours?. Pt was treated with IVF, cefepime, and started on a bicarb drip. Pt will be admitted to the hospital for treatment further evaluation of ELYSE secondary to rhabdomyolysis in the setting of cocaine use disorder. toxic metabolic encephalopathy and Rhabdomyolysis Likely secondary to cocaine use Patient states yesterday he was using cocaine when he passed out, lay on the floor for ?hours?, definitive timeline not known has body pains/legs pains CPK >[id number] tox screen-positive for cocaine and fentanyl Pt given IVF changed ns @125ml adjusted gabapentine ,PT evaluation Follow BMP AKILikely secondary to rhabdomyolysis improved with ivf. Follow BMP Transaminitis Most likely secondary to cocaine use Check right upper quadrant ultrasound-seems fine. hepatitis panel, salicylate, acetaminophen levels-seems fine. Follow CMP toxid metabolic encephalopathy/Abnormal CTA Patient not complaining of headache, facial pain, vision changes possible related to drug use Pt eval turn,oob conitnue rhabo management. Leukocytosis: trending down blood cultures pending Possibly reactionary, no clear source of infection continue on cefepime 1 g q.12 Leg pains /body pains : Likely due to rhabdo secondary to cocaine use. Added venous duplex Seen by orthopedics-compartments are soft-less likely compartment syndrome, no further workup at present. oob ,OT eval Cocaine use disorder Pt uses cocaine daily Addiction medicine consult Hyponatremia: likely due to dehydration resolved with received IVF in ED Follow BMP hyperkalemia: seems related to rhabdo -resolved with bicarb drip. Full Code DVT Prophylaxis: Pneumatic boots inpatient need: treatment of?ELYSE secondary to rhabdomyolysis - on ivf ,need bmp /cpk levels moniterin Time Spent With Patient Time: Total time managing care of this patient today ____ minutes. Quality Stroke Does the patient have a stroke diagnosis?: No VTE Prior VTE?: No VTE Risk Level:: Medical - moderate - high VTE Device Contraindication: N/A - Device Ordered VTE Drug Contraindication: Treatment Not Indicated
[2023-01-02 11:11] VITALS: BP 126/69; PULSE 74; RESP 20; TEMP 37.1; O2SAT 97
--- NOTE | 2023-01-02 12:26 | PC.NURSE ---
Patient is alert and oriented to self, place, time, and situation. Patient is yelling, demanding, and being disruptive. Patient was continually getting up despite redirection and education. Patient is transferred back to bed like he requested, with 2 person assist. Patient room is frequented to address concerns. Patient states we do not care, and he should be the only priority, because he has a history of heart attack. Patient stated he wants to be transferred to [facility] and he will call 911 for the ambulance to pick him up. Nursing supervisor enrobing Seda Mota and Dr Gaffney notified of his behavior via [employer] at 10:10. Frequent rounding to maintain safety, needs are met at this time. Call guzmán in reach, bed alarm on, and camera in place.
[2023-01-02] MEDS: Melatonin 3 MG TABLET 6 MG PO (13:10)
[2023-01-02 16:00] VITALS: BP 146/76; PULSE 92; RESP 18; TEMP 37; O2SAT 97
--- NOTE | 2023-01-02 17:59 | PC.NURSE ---
Patient alerts and oriented to self, time, place, and situation. Patient continues to have outburst through out the afternoon and through out the dinner. Yelling for nurse and BOOKING [employer]ICE OFFICER staff. Patient stated he wanted some to hand feed to him dinner he was unable to do it, patient able to eat breakfast and lunch by self, patient had no change in status or condition and encouraged to eat dinner by self. Patient was able to flow through with task and completed dinner on own. Dr Gaffney order 1 to 1 sitter for patient. Due to staffing the order is unable to be filled until 23:00. Popcorn Candy Maker Monet, is a aware when contacted by [employer] @ 16:26 with response at 16:48, no sitter coverage until 23:00, and only two cnas 19 to 23pm. Patient is in bed, call guzmán in place, bed alarm on, pt has camera placed in room. Frequent rounding to make sure needs are met.
[2023-01-02 19:23] VITALS: BP 165/79; PULSE 84; RESP 18; TEMP 36.9; O2SAT 97
[2023-01-02] MEDS: Morphine Sulfate 4 MG/ML CARTRIDGE IVPUSH (20:33)
[2023-01-02] MEDS: Zolpidem Tartrate 5 MG TABLET PO (20:37)
[2023-01-02 23:27] VITALS: BP 137/79; PULSE 68; RESP 18; TEMP 36.9; O2SAT 98
[2023-01-03] MEDS: cefEPime HCl 1 GM in 0.9 % Sodium Chloride 50 ML IV ×2 (01:42→13:56)
[2023-01-03] MEDS: diphenhydrAMINE HCL 50 MG/ML VIAL 25 MG IVPUSH (02:58)
[2023-01-03] MEDS: Morphine Sulfate 4 MG/ML CARTRIDGE IVPUSH (03:00)
[2023-01-03 03:44] VITALS: BP 139/78; PULSE 62; RESP 18; TEMP 37.3; O2SAT 97
[2023-01-03] MEDS: 0.9 % Sodium Chloride 1,000 ML 125 ML IVCONT (05:39)
--- NOTE | 2023-01-03 05:45 | PC.NURSE ---
pt frequently throughout the shift hollering out, stating he is uncomfortable, doesn't understand why. He is beligerent and demanding frequent position changes approx Q10-15 minutes but turns himself back to original position within moments. He is able to self reposition but states it's your job to move me. Pt educated on benefits of participating in physical activity to his abilty. Pt assisted to stand and march in place with pt stating it feels great! Pt also c/o no sleep x3 days. Dr. Mcdonough aware and ambien and morphine given with positive but short lasting effect. Pt woke up hollering again, Morphine and benadryl given with postive effect. Pt sleeping at this time with no s/s distress.
[2023-01-03 07:31] VITALS: BP 145/72; PULSE 65; RESP 20; TEMP 36.4; O2SAT 98
[2023-01-03 07:43] LABS: Anion Gap 9 (12-20); Blood Urea Nitrogen 21 mg/dL (9-16); Carbon Dioxide 23 mmol/L (22-29); Chloride 113 mmol/L (96-108); Creatinine Clr Calc Pharmacy 87.7; Estimated Glomerular Filt Rate > 60; Glucose Random 90 mg/dL (60-115); Potassium 4.2 mmol/L (3.3-5.1); Sodium 141 mmol/L (135-145)
[2023-01-03] MEDS: Gabapentin 100 MG CAPSULE PO ×2 (08:58→20:45)
[2023-01-03] MEDS: Aspirin 81 MG TAB.CHEW PO (08:58)
[2023-01-03] MEDS: 0.9 % Sodium Chloride Flush 3 ML SYRINGE IVFLUSH ×3 (09:01→23:57)
--- NOTE | 2023-01-03 11:05 | P.PNIM_ITS ---
Subjective Subjective Date of Service: 01/03/23 Interval History: Toxic metabolic encephalopathy Review of Systems mental status seems improving has body pains,leg pain- improving Denies any cough or shortness of breath or chest pain Physical Exam Vital Signs: Vital Signs: Last Vital Signs Temp 97.6 F 01/03/23 07:31 Pulse 65 01/03/23 07:31 Resp 20 01/03/23 07:31 BP 145/72 H 01/03/23 07:31 Pulse Ox 98 01/03/23 07:31 O2 Del Method Room Air 01/03/23 07:31 BMI result Body Mass Index 25.7 Appearance: Alert.? Oriented 2-3.? not in distress.? cvs: rrr, [id number]. res: clear to auscultation ,no rhonchii or wheezing abd: no rebound or guarding ,nt, bs present. ext pulses present , no cyanosis . neuro: axo3 , nonfocal. Objective Data Active Medications Aspirin (Aspirin 81 Mg Tab.Chew) 81 mg PO DAILY [facility] Last Admin: 01/03/23 08:58 Dose: 81 mg Documented By: CARMEN Gabapentin (Gabapentin 100 Mg Capsule) 100 mg PO BID [facility] Last Admin: 01/03/23 08:58 Dose: 100 mg Documented By: CARMEN Cefepime HCl 1 gm/ Sodium (Chloride) 50 mls @ 100 mls/hr IV Q12H [facility] Last Infusion: 01/03/23 03:03 Dose: 0 mls/hr Documented By: JEOVANNY Sodium Chloride (Ns) 1,000 mls @ 125 mls/hr IVCONT .Q8H [facility] Last Admin: 01/03/23 05:39 Dose: 125 mls/hr Documented By: JEOVANNY Melatonin (Melatonin 3 Mg Tablet) 6 mg PO BEDTIME PRN PRN Reason: Insomnia Last Admin: 01/02/23 13:10 Dose: 6 mg Documented By: PANCHITO Ondansetron HCl (Ondansetron Hcl 4 Mg/2 Ml Vial) 4 mg IVPUSH Q8H PRN PRN Reason: Nausea and Vomiting Pharmacy Consult (Consult Rx Perform Med Rec) 1 each MISCELLANE ONCE PRN PRN Reason: Consult order Sodium Chloride (0.9 % Sodium Chloride Flush 3 Ml Syringe) 3 ml IVFLUSH QSHIFT [facility] Last Admin: 01/03/23 09:01 Dose: 3 ml Documented By: CARMEN Labs 12/31/22 06:27 01/03/23 06:35 Labs: Laboratory Results - last 24 hr 01/03/23 06:35 Anion Gap 9 L Estim Creat Clear Calc 87.7 Estimated GFR > 60 Random Glucose 90 Calcium 9.0 Total Creatine Kinase 5874 H Assessment and Plan (1) Toxic encephalopathy: Status: Acute (2) ELYSE (acute kidney injury): Status: Acute (3) Transaminitis: Status: Acute (4) Acute renal failure: Status: Acute (5) Rhabdomyolysis: Status: Acute Plan ?62-year-old male with a PMH significant for?previous stroke and polysubstance use disorder who presents to the ED with?generalized whole body weakness and pain since this morning.? Patient is a long-time daily user of cocaine and fentanyl, states yesterday he snorted a little over 1 g of cocaine likely laced with fentanyl and then passed out.? Patient was on the floor for an unknown period of ?many hours?. Pt was treated with IVF, cefepime, and started on a bicarb drip. Pt will be admitted to the hospital for treatment further evaluation of ELYSE secondary to rhabdomyolysis in the setting of cocaine use disorder. toxic metabolic encephalopathy and Rhabdomyolysis Likely secondary to cocaine use Patient states yesterday he was using cocaine when he passed out, lay on the floor for ?hours?, definitive timeline not known has body pains/legs pains CPK >[id number] tox screen-positive for cocaine and fentanyl Pt given IVF changed ns @80ml adjusted gabapentine ,PT evaluation Follow BMP AKILikely secondary to rhabdomyolysis improved with ivf. Follow BMP Transaminitis Most likely secondary to cocaine use Check right upper quadrant ultrasound-seems fine. hepatitis panel, salicylate, acetaminophen levels-seems fine. Follow CMP toxid metabolic encephalopathy/Abnormal CTA Patient not complaining of headache, facial pain, vision changes possible related to drug use Pt eval turn,oob conitnue rhabo management. Leukocytosis: trending down blood cultures pending Possibly reactionary, no clear source of infection continue on cefepime 1 g q.12 Leg pains /body pains : Likely due to rhabdo secondary to cocaine use. Added venous duplex Seen by orthopedics-compartments are soft-less likely compartment syndrome, no further workup at present. oob ,PT/OT eval following Cocaine use disorder Pt uses cocaine daily Addiction medicine consult Hyponatremia: likely due to dehydration resolved with received IVF in ED Follow BMP hyperkalemia: seems related to rhabdo -resolved with bicarb drip. Full Code DVT Prophylaxis: Pneumatic boots inpatient need: treatment of?ELYSE secondary to rhabdomyolysis - on ivf ,need bmp /cpk levels moniterin,also pt/ot following for dispo(still annette weak /very limit ed PT emerson). Time Spent With Patient Time: Total time managing care of this patient today ____ minutes. Quality Stroke Does the patient have a stroke diagnosis?: No VTE Prior VTE?: No VTE Risk Level:: Medical - moderate - high VTE Device Contraindication: N/A - Device Ordered VTE Drug Contraindication: Treatment Not Indicated
[2023-01-03 11:37] VITALS: BP 143/76; PULSE 68; RESP 20; TEMP 37.1; O2SAT 100
--- NOTE | 2023-01-03 11:51 | MHC.RECOVRN ---
Addendum entered by Susie Rust RN 01/03/23 12:01: Pt denies any other substances used. Original Note: This writer technical publications met with patient after addiction consult received. Pt in bed, resting. Pt visually grimacing, pt reports difficulty sleeping, body aches, overall discomfort. Pt denies N,V,D, pt not visiby diaphoretic, not visibly restless. Pt reports daily use $200 worth Crack/LORNE for past 1-2 months, pt states prior to 2 months ago, 1 month recovery time. Pt reports no history of overdose, no history of substance use treatment, no history of medications for substance use. Pt states i'm done with this drug, I almost , I will do anything that will help me . Provider Xiao Garcia, NEWS CORRESPONDENT aware.
--- NOTE | 2023-01-03 12:19 | PM.PNNEP ---
Subjective Subjective Date of Service: 01/03/23 Interval history: seen and examined no complaints Physical Exam Vital Signs: Vital Signs: Last Vital Signs Temp 98.7 F 01/03/23 11:37 Pulse 68 01/03/23 11:37 Resp 20 01/03/23 11:37 BP 143/76 H 01/03/23 11:37 Pulse Ox 100 01/03/23 11:37 O2 Del Method Room Air 01/03/23 11:37 BMI result Body Mass Index 25.7 Const: General: alert and awake HEENT: Head: Yes normocephalic and Yes atraumatic Neck: Neck: Yes supple Resp: Auscultation: diminished lung sounds Cardio: Heart sounds: S1 normal heart sound present and S2 normal heart sound present GI: Palpation (GI): Soft to palpation and nontender Extrem: Right upper extremity: no edema Objective Data Labs 12/31/22 06:27 01/03/23 06:35 Labs: Laboratory Results - last 24 hr 01/03/23 06:35 Sodium 141 Potassium 4.2 Chloride 113 H Carbon Dioxide 23 Anion Gap 9 L BUN 21 H Creatinine 0.74 Estim Creat Clear Calc 87.7 Estimated GFR > 60 Random Glucose 90 Calcium 9.0 Total Creatine Kinase 5874 H Microbiology Microbiology Results: Microbiology 12/30/22 13:55 Blood - Venous Blood Culture - Preliminary No growth after 48 hours. 12/30/22 13:38 Blood - Venous Blood Culture - Preliminary No growth after 48 hours. Procedures Date of Service Date of Service: 01/03/23 Assessment & Plan Assessment and plan (1) ELYSE (acute kidney injury): Status: Acute (2) Rhabdomyolysis: Status: Acute Plan cpk down ELYSE due to heme pigment nephrotoxicity in the setting of cocaine use resolved normal baseline kidney function REC follow cpk follow kidney function and electrolytes nop need for o/p renal f/u Time Spent With Patient Time: Total time managing care of this patient today ____ minutes. Progress Note: Quality Stroke Does the patient have a stroke diagnosis?: No
--- NOTE | 2023-01-03 13:48 | HO.PM.IMPN ---
Subjective Subjective Date of Service: 01/03/23 Interval History: Toxic metabolic encephalopathy Review of Systems mental status seems improving has body pains,leg pain- improving Denies any cough or shortness of breath or chest pain Physical Exam Vital Signs: Vital Signs: Last Vital Signs Temp 98.7 F 01/03/23 11:37 Pulse 68 01/03/23 11:37 Resp 20 01/03/23 11:37 BP 143/76 H 01/03/23 11:37 Pulse Ox 100 01/03/23 11:37 O2 Del Method Room Air 01/03/23 11:37 BMI result Body Mass Index 25.7 Appearance: Alert.? Oriented 2-3.? not in distress.? cvs: rrr, [id number]. res: clear to auscultation ,no rhonchii or wheezing abd: no rebound or guarding ,nt, bs present. ext pulses present , no cyanosis . neuro: axo3 , nonfocal. Objective Data Active Medications Aspirin (Aspirin 81 Mg Tab.Chew) 81 mg PO DAILY [facility] Last Admin: 01/03/23 08:58 Dose: 81 mg Documented By: CARMEN Gabapentin (Gabapentin 100 Mg Capsule) 100 mg PO BID [facility] Last Admin: 01/03/23 08:58 Dose: 100 mg Documented By: CARMEN Cefepime HCl 1 gm/ Sodium (Chloride) 50 mls @ 100 mls/hr IV Q12H [facility] Last Infusion: 01/03/23 03:03 Dose: 0 mls/hr Documented By: JEOVANNY Melatonin (Melatonin 3 Mg Tablet) 6 mg PO BEDTIME PRN PRN Reason: Insomnia Last Admin: 01/02/23 13:10 Dose: 6 mg Documented By: PANCHITO Ondansetron HCl (Ondansetron Hcl 4 Mg/2 Ml Vial) 4 mg IVPUSH Q8H PRN PRN Reason: Nausea and Vomiting Pharmacy Consult (Consult Rx Perform Med Rec) 1 each MISCELLANE ONCE PRN PRN Reason: Consult order Sodium Chloride (0.9 % Sodium Chloride Flush 3 Ml Syringe) 3 ml IVFLUSH QSHIFT [facility] Last Admin: 01/03/23 09:01 Dose: 3 ml Documented By: CARMEN Labs 12/31/22 06:27 01/03/23 06:35 Labs: Laboratory Results - last 24 hr 01/03/23 06:35 Anion Gap 9 L Estim Creat Clear Calc 87.7 Estimated GFR > 60 Random Glucose 90 Calcium 9.0 Total Creatine Kinase 5874 H Assessment and Plan (1) Toxic encephalopathy: Status: Acute (2) ELYSE (acute kidney injury): Status: Acute (3) Transaminitis: Status: Acute (4) Rhabdomyolysis: Status: Acute Plan 62-year-old male with a PMH significant for?previous stroke and polysubstance use disorder who presents to the ED with?generalized whole body weakness and pain since this morning.? Patient is a long-time daily user of cocaine and fentanyl, states yesterday he snorted a little over 1 g of cocaine likely laced with fentanyl and then passed out.? Patient was on the floor for an unknown period of ?many hours?. Pt was treated with IVF, cefepime, and started on a bicarb drip. Pt will be admitted to the hospital for treatment further evaluation of ELYSE secondary to rhabdomyolysis in the setting of cocaine use disorder. toxic metabolic encephalopathy and Rhabdomyolysis Likely secondary to cocaine use Patient states yesterday he was using cocaine when he passed out, lay on the floor for ?hours?, definitive timeline not known has body pains/legs pains CPK >[id number] tox screen-positive for cocaine and fentanyl Pt given IVF changed ns @80ml, gabapentine Follow BMP AKILikely secondary to rhabdomyolysis improved with ivf. Follow BMP Transaminitis Most likely secondary to cocaine use Check right upper quadrant ultrasound-seems fine. hepatitis panel, salicylate, acetaminophen levels-seems fine. Follow CMP toxid metabolic encephalopathy/Abnormal CTA Patient not complaining of headache, facial pain, vision changes possible related to drug use turn,oob conitnue rhabo management. Pt eval Leukocytosis: trending down blood cultures pending Possibly reactionary, no clear source of infection continue on cefepime 1 g q.12 Leg pains /body pains : Likely due to rhabdo secondary to cocaine use. venous duplex-neg for dvt Seen by orthopedics-compartments are soft-less likely compartment syndrome, no further workup at present. oob ,PT/OT eval following-may need str on discharge Cocaine use disorder Pt uses cocaine daily Addiction medicine consult Hyponatremia: likely due to dehydration resolved with received IVF in ED Follow BMP hyperkalemia: seems related to rhabdo -resolved with bicarb drip. Full Code DVT Prophylaxis: Pneumatic boots inpatient need: treatment of?ELYSE secondary to rhabdomyolysis - on ivf ,need bmp /cpk levels moniterin,also pt/ot following for dispo(still very weak/could no). Time Spent With Patient Time: Total time managing care of this patient today ____ minutes. Quality Stroke Does the patient have a stroke diagnosis?: No VTE Prior VTE?: No VTE Risk Level:: Medical - moderate - high VTE Device Contraindication: N/A - Device Ordered VTE Drug Contraindication: Treatment Not Indicated
--- NOTE | 2023-01-03 15:15 | MHC.CM.PN ---
EMR reviewed and per MD rounds, pt not medically cleared for D/C and continue to have increased CPK lab values and needs continued monitoring. CM will continue to follow.
--- NOTE | 2023-01-03 16:31 | HO.ADDICTPRO ---
Subjective Subjective Date of Service: 01/03/23 Reason For Visit: Rhabdomyolysis, ELYSE Interim History: Patient seen in follow up Seen earlier by elevator examiner and c/o restless legs and difficulty sleeping. When seen by this bond underwriter, patient, awake, alert, and engaged in interview. Denies any opioid use, but is aware that there was fentanyl in the cocaine he was using. Denies any history of opioid use or withdrawal. Based on the amount of (fentanyl containing)cocaine patient was reporting using daily he is likely experiencing mild withdrawal sx. He reports sleep is very difficult for him right now. Discussed options for addressing withdrawal sx, including very low dose of methadone over the next 2 days-patient declined. Discussed comfort medications, including baclofen for restless legs and hydroxyzine for anxiety. Mirtazipine for sleep. Patient agreeable. Review of Systems Constitutional: Reports as per HPI Mental Status Exam Mental Status Exam Patient Appearance: Appropriate Patient Orientation: Person, Place, Time and Situation Level of Consciousness: Awake and Appropriate Patient Behavior: Appropriate and Talkative Mood Description: Calm Diagnostics Vital Signs (24Hr): Vital Signs - 24 hr 01/02/23 19:23 01/02/23 23:27 01/03/23 03:44 Temperature 98.5 F 98.4 F 99.2 F Pulse Rate 84 68 62 Respiratory Rate 18 18 18 Blood Pressure 165/79 H 137/79 139/78 Pulse Oximetry 97 98 97 Oxygen Delivery Method Room Air Room Air Room Air 01/03/23 07:31 01/03/23 11:37 Temperature 97.6 F 98.7 F Pulse Rate 65 68 Respiratory Rate 20 20 Blood Pressure 145/72 H 143/76 H Pulse Oximetry 98 100 Oxygen Delivery Method Room Air Room Air BMI result Body Mass Index 25.7 Labs 12/31/22 06:27 01/03/23 06:35 Labs: Laboratory Results - last 48 hr 01/01/23 01/02/23 01/03/23 21:25 05:49 06:35 Sodium 140 141 Potassium 3.7 4.2 Chloride 108 113 H Carbon Dioxide 27 23 Anion Gap 9 L 9 L BUN 23 H 21 H Creatinine 0.81 0.74 Estim Creat Clear Calc 80.1 87.7 Estimated GFR > 60 > 60 POC Glucose 106 Random Glucose 88 90 Calcium 8.8 9.0 Total Bilirubin 1.7 H AST 527 H ALT 276 H Alkaline Phosphatase 39 Total Creatine Kinase 39697 H 5874 H Total Protein 5.7 L Albumin 2.9 L Imaging Radiology Impressions: ITS Impressions Head CT 12/30/22 11:10 IMPRESSION: No acute intracranial pathology. Mild asymmetric left facial soft tissue without overt underlying osseous abnormality. Correlate with physical exam. Please refer to the report from the CTA of the head from today for more detailed findings. Head/Neck CTA 12/30/22 11:19 IMPRESSION: There is asymmetric left periorbital soft tissue swelling. Grossly no acute facial fracture. There are symmetric foci of hypoattenuation within the globus pallidus of both lentiform nuclei and there is questionable hypoattenuation involving the undersurfaces of the frontal lobes. A dedicated brain MRI can be obtained for better anatomic characterization of these findings. Otherwise unremarkable CT angiogram of the head and neck in that there is no stenosis of the cervical carotid or vertebral arteries. No intracranial large vessel occlusion. No identifiable aneurysm or high flow vascular lesion. This critical result was discussed with Jazmín Robles MD at 11:31 AM on 12/30/2022 and it was ascertained that the content and urgency of the report was understood at the time of direct communication. Chest X-Ray 12/30/22 11:53 IMPRESSION: No acute cardiopulmonary process. Abdomen Ultrasound 12/30/22 15:06 IMPRESSION: Sludge within the gallbladder without evidence of acute cholecystitis. Venous Duplex 01/01/23 13:16 IMPRESSION: 1. No evidence for deep venous thrombosis in the visualized veins of the left lower extremity. 2. Mildly enlarged left inguinal lymph nodes correlate with CT findings and are likely chronic reactive. Correlate with physical exam and patient history. Medications Medications Current Medications Aspirin (Aspirin 81 Mg Tab.Chew) 81 mg PO DAILY [facility] Last Admin: 01/03/23 08:58 Dose: 81 mg Baclofen (Baclofen 10 Mg Tablet) 10 mg PO TID [facility] Gabapentin (Gabapentin 100 Mg Capsule) 100 mg PO BID [facility] Last Admin: 01/03/23 08:58 Dose: 100 mg Hydroxyzine HCl (Hydroxyzine Hcl 50 Mg Tablet) 50 mg PO Q8H PRN PRN Reason: Anxiety Cefepime HCl 1 gm/ Sodium (Chloride) 50 mls @ 100 mls/hr IV Q12H [facility] Last Infusion: 01/03/23 15:50 Dose: Infused Melatonin (Melatonin 3 Mg Tablet) 6 mg PO BEDTIME PRN PRN Reason: Insomnia Last Admin: 01/02/23 13:10 Dose: 6 mg Ondansetron HCl (Ondansetron Hcl 4 Mg/2 Ml Vial) 4 mg IVPUSH Q8H PRN PRN Reason: Nausea and Vomiting Pharmacy Consult (Consult Rx Perform Med Rec) 1 each MISCELLANE ONCE PRN PRN Reason: Consult order Sodium Chloride (0.9 % Sodium Chloride Flush 3 Ml Syringe) 3 ml IVFLUSH QSHIFT [facility] Last Admin: 01/03/23 15:57 Dose: 3 ml Allergies Allergies Allergy/AdvReac Type Severity Reaction Status Date / Time acetaminophen Allergy Unknown RASH, ITCHY Verified 06/03/22 14:29 [From Tylenol-Codeine] codeine Allergy Unknown RASH, ITCHY Verified 06/03/22 14:29 [From Tylenol-Codeine] Penicillins Allergy Unknown RASH, ITCHY Verified 06/03/22 14:29 Assessment & Plan Assessment & Plan (1) Opioid withdrawal: Status: Acute Code(s): F11.93 - Opioid use, unspecified with withdrawal Assessment and Plan: mirtazipine 7.5mg QHS Baclofen 10mg TID ( should be discontinued prior to discharge) Hydroxyzine 50mg q8h prn anxiety Total time managing care of this patient today _30___ minutes.
[2023-01-03 16:46] VITALS: BP 143/76; PULSE 68; O2SAT 100
[2023-01-03] MEDS: Baclofen 10 MG TABLET PO (20:45)
[2023-01-03] MEDS: Morphine Sulfate Immed Release 15 MG TABLET PO (20:46)
[2023-01-03] MEDS: Melatonin 3 MG TABLET 6 MG PO (22:05)
[2023-01-03 23:53] VITALS: BP 144/76; PULSE 62; RESP 14; TEMP 36.3; O2SAT 98
[2023-01-04 04:00] VITALS: BP 144/77; PULSE 65; RESP 16; TEMP 36; O2SAT 96
--- NOTE | 2023-01-04 06:27 | PC.NURSE ---
CARE ASSUMED 23:15..AWAKE..ALERT...INTERMITTANTLY RESTLESS....PER SHIFT REPORT PATIENT REPEATEDLY YELLING AND CALLING OUT..CLIMBING OOB REPEATEDLY...REFUSING TO WEAR LOUVER MORTISER OPERATOR...1;1 SITTER AT BEDSIDE...FREUQUENT DEMANDS FOR REPOSITIONING ALTHOUGH OBSERVING PATIENT POSITIONING SELF INDEPENDENTLY AFTERWARDS..STATED IT'S YOUR JOB TO DO WHAT I TELL YOU ...C/O INABILITY TO SLEEP...PRN ATARAX GIVEN...OBSERVED TO BE DOZING INTERMITTANTLY OVERNIGHT AND RESTFUL...VOIDED IN URINAL...AWAKE...ALERT 6AM...
[2023-01-04 07:05] VITALS: BP 144/82; PULSE 73; RESP 17; TEMP 36.5; O2SAT 98
[2023-01-04] MEDS: hydrOXYzine HCL 50 MG TABLET PO ×3 (08:16→17:37)
[2023-01-04] MEDS: Gabapentin 100 MG CAPSULE PO ×2 (08:16→20:01)
[2023-01-04] MEDS: Aspirin 81 MG TAB.CHEW PO (08:16)
[2023-01-04] MEDS: Baclofen 10 MG TABLET PO ×3 (08:16→20:01)
[2023-01-04] MEDS: 0.9 % Sodium Chloride Flush 3 ML SYRINGE IVFLUSH ×2 (08:17→15:08)
[2023-01-04 09:13] LABS: Hemoglobin 13.5 g/dl (14.0-18.0); Mean Corpuscular HGB Conc 32.9 g/dl (31.0-36.0); Mean Corpuscular Hemoglobin 29.8 pg (27.0-33.0); Mean Corpuscular Volume 90.5 fL (80.0-98.0); Mean Platelet Volume 9.9 fL (9.4-12.4); Platelet Count 213 X10*3/uL (160-400); Red Blood Count 4.53 X10*6/uL (4.60-5.80); Red Cell Distribution Width 12.8 % (11.0-16.0); White Blood Count 9.4 X10*3/uL (4.8-10.8)
[2023-01-04 09:30] LABS: Alanine Aminotransferase 229 U/L (0-40); Albumin Level 3.4 g/dL (3.5-5.0); Alkaline Phosphatase 46 U/L (39-117); Anion Gap 12 (12-20); Aspartate Amino Transferase 198 U/L (5-37); Bilirubin Direct 0.4 mg/dL (0.0-0.5); Bilirubin Total 1.3 mg/dL (0.0-1.0); Blood Urea Nitrogen 22 mg/dL (9-16); Calcium 9.4 mg/dL (8.4-10.2); Carbon Dioxide 24 mmol/L (22-29); Chloride 109 mmol/L (96-108); Creatinine Clr Calc Pharmacy 83.2; Estimated Glomerular Filt Rate > 60; Glucose Random 120 mg/dL (60-115); Sodium 141 mmol/L (135-145); Total Protein 6.6 g/dL (6.5-8.0)
--- NOTE | 2023-01-04 09:30 | HO.PM.IMPN ---
Subjective Subjective Date of Service: 01/05/23 Interval History: f/u on rhabdo, metabolic encephalopathy no new issues Physical Exam Vital Signs: Vital Signs: Last Vital Signs Temp 97.7 F 01/04/23 07:05 Pulse 73 01/04/23 07:05 Resp 17 01/04/23 07:05 BP 144/82 H 01/04/23 07:05 Pulse Ox 98 01/04/23 07:05 O2 Del Method Room Air 01/04/23 07:05 BMI result Body Mass Index 25.7 Const: Other: General: Resp: CTA bilateral CVS: S1,S2,RRR GI: +BS, NT, no distention Skin: No rash Neuro: motor grossly intact Psych: appropriate affect Objective Data Active Medications Aspirin (Aspirin 81 Mg Tab.Chew) 81 mg PO DAILY [facility] Last Admin: 01/04/23 08:16 Dose: 81 mg Documented By: GARRETT Baclofen (Baclofen 10 Mg Tablet) 10 mg PO TID [facility] Last Admin: 01/04/23 08:16 Dose: 10 mg Documented By: GARRETT Gabapentin (Gabapentin 100 Mg Capsule) 100 mg PO BID [facility] Last Admin: 01/04/23 08:16 Dose: 100 mg Documented By: GARRETT Hydroxyzine HCl (Hydroxyzine Hcl 50 Mg Tablet) 50 mg PO Q8H PRN PRN Reason: Anxiety Last Admin: 01/04/23 08:16 Dose: 50 mg Documented By: GARRETT Cefepime HCl 1 gm/ Sodium (Chloride) 50 mls @ 100 mls/hr IV Q12H [facility] Last Infusion: 01/04/23 00:40 Dose: 0 mls/hr Documented By: LUNA Melatonin (Melatonin 3 Mg Tablet) 6 mg PO BEDTIME PRN PRN Reason: Insomnia Last Admin: 01/03/23 22:05 Dose: 6 mg Documented By: CARMEN Ondansetron HCl (Ondansetron Hcl 4 Mg/2 Ml Vial) 4 mg IVPUSH Q8H PRN PRN Reason: Nausea and Vomiting Pharmacy Consult (Consult Rx Perform Med Rec) 1 each MISCELLANE ONCE PRN PRN Reason: Consult order Sodium Chloride (0.9 % Sodium Chloride Flush 3 Ml Syringe) 3 ml IVFLUSH QSHIFT [facility] Last Admin: 07/18/23 08:17 Dose: 3 ml Documented By: GARRETT Labs 01/04/23 08:40 01/03/23 06:35 Labs: Laboratory Results - last 24 hr 01/04/23 08:40 MCV 90.5 MCH 29.8 MCHC 32.9 RDW 12.8 Plt Count 213 D MPV 9.9 Absolute Nucleated RBC 0.000 Nucleated RBC % (auto) 0.0 Assessment and Plan (1) Toxic encephalopathy: Status: Acute (2) ELYSE (acute kidney injury): Status: Acute (3) Transaminitis: Status: Acute (4) Rhabdomyolysis: Status: Acute Plan 62-year-old male with a PMH significant for?previous stroke and polysubstance use disorder who presents to the ED with?generalized whole body weakness and pain since this morning.? Patient is a long-time daily user of cocaine and fentanyl, states yesterday he snorted a little over 1 g of cocaine likely laced with fentanyl and then passed out.? Patient was on the floor for an unknown period of ?many hours?. Pt was treated with IVF, cefepime, and started on a bicarb drip. Pt will be admitted to the hospital for treatment further evaluation of ELYSE secondary to rhabdomyolysis in the setting of cocaine use disorder. toxic metabolic encephalopathy likely from cocain and other substance and worse by rhabdo, improving rhabdomylsis from being down from drug use,, cpk gone from 42k to now just 2k. 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 Will stop at this time Leg pains /body pains : d/t rhabdo, PT, prn pain meds, us leg neg for dvt Cocaine use disorder Addiction medicine consult HypOnatremia: likely due to dehydration resolved with received IVF in ED hypERkalemia: d/t rhabo, resolved Full Code DVT Prophylaxis: Pneumatic boots inpatient need: treatment of?ELYSE secondary to rhabdomyolysis - on ivf ,need bmp /cpk levels moniterin,also pt/ot following for dispo(still very weak/could no). Time Spent With Patient Time: Total time managing care of this patient today ____ minutes. Quality Stroke Does the patient have a stroke diagnosis?: No VTE Prior VTE?: No VTE Risk Level:: Medical - moderate - high VTE Device Contraindication: N/A - Device Ordered VTE Drug Contraindication: Treatment Not Indicated
[2023-01-04 10:13] VITALS: BP 144/82; PULSE 73; O2SAT 98
[2023-01-04 11:23] VITALS: BP 138/68; PULSE 60; RESP 14; TEMP 37.1; O2SAT 98
[2023-01-04] MEDS: cefEPime HCl 1 GM in 0.9 % Sodium Chloride 50 ML IV ×2 (12:33)
--- NOTE | 2023-01-04 14:46 | MHC.RECOVRN ---
Met with pt in 453 to follow up after meeting with Addiction Med provider, Xiao Garcia APRN, yesterday. Pt sitting in bed, awake, alert, engages in conversation, reports feeling uncomfortable. Pt reports mild withdrawal symptoms including body aches, restlessness, difficulty sleeping. Pt had been offered low dose methadone on 01/03 and declined. Pt is interested in a dose today to address symptoms. Discussed with provider, plan to administer 5 mg methadone one time dose. Will continue to follow.
[2023-01-04 15:32] VITALS: BP 141/76; PULSE 80; RESP 25; TEMP 37; O2SAT 96
[2023-01-04] MEDS: methADONE HCl 20 MG/2 ML ORAL.CONC 5 MG PO (18:43)
[2023-01-04 19:30] VITALS: BP 140/77; PULSE 77; RESP 20; TEMP 36.9; O2SAT 97
[2023-01-04] MEDS: Melatonin 3 MG TABLET 6 MG PO (20:01)
[2023-01-05] VITALS (8 sets, daily range): BP systolic 119–138; BP diastolic 68–78; PULSE 63–93; RESP 14–20; TEMP 36–36.9; O2SAT 96–98
[2023-01-05] MEDS: cefEPime HCl 1 GM in 0.9 % Sodium Chloride 50 ML IV ×2 (00:21→11:55)
[2023-01-05] MEDS: 0.9 % Sodium Chloride Flush 3 ML SYRINGE IVFLUSH ×3 (00:24→14:22)
[2023-01-05] MEDS: hydrOXYzine HCL 50 MG TABLET PO ×2 (04:18→21:03)
[2023-01-05] MEDS: Aspirin 81 MG TAB.CHEW PO (09:22)
[2023-01-05] MEDS: Gabapentin 100 MG CAPSULE PO ×2 (09:23→21:03)
[2023-01-05] MEDS: Baclofen 10 MG TABLET PO ×3 (09:23→21:03)
--- NOTE | 2023-01-05 09:39 | HO.PM.IMPN ---
Subjective Subjective Date of Service: 01/05/23 Interval History: f/u on rhabdo, metabolic encephalopathy, more lucid, c/o pain, no reported agitation still has sitter Physical Exam Vital Signs: Vital Signs: Last Vital Signs Temp 97.3 F 01/05/23 07:32 Pulse 69 01/05/23 07:32 Resp 16 01/05/23 07:32 BP 131/76 01/05/23 07:32 Pulse Ox 96 01/05/23 07:32 O2 Del Method Room Air 01/05/23 07:32 BMI result Body Mass Index 25.7 Const: Other: General: Resp: CTA bilateral CVS: S1,S2,RRR GI: +BS, NT, no distention Skin: No rash Neuro: motor grossly intact Psych: appropriate affect Objective Data Active Medications Aspirin (Aspirin 81 Mg Tab.Chew) 81 mg PO DAILY [facility] Last Admin: 01/05/23 09:22 Dose: 81 mg Documented By: JAYDA Baclofen (Baclofen 10 Mg Tablet) 10 mg PO TID [facility] Last Admin: 01/05/23 09:23 Dose: 10 mg Documented By: JAYDA Gabapentin (Gabapentin 100 Mg Capsule) 100 mg PO BID [facility] Last Admin: 01/05/23 09:23 Dose: 100 mg Documented By: JAYDA Hydroxyzine HCl (Hydroxyzine Hcl 50 Mg Tablet) 50 mg PO Q8H PRN PRN Reason: Anxiety Last Admin: 01/05/23 04:18 Dose: 50 mg Documented By: NICANOR Cefepime HCl 1 gm/ Sodium (Chloride) 50 mls @ 100 mls/hr IV Q12H [facility] Last Infusion: 01/05/23 01:39 Dose: 0 mls/hr Documented By: NICANOR Melatonin (Melatonin 3 Mg Tablet) 6 mg PO BEDTIME PRN PRN Reason: Insomnia Last Admin: 01/04/23 20:01 Dose: 6 mg Documented By: NICANOR Methadone HCl (Methadone Hcl 20 Mg/2 Ml Oral.Conc) 5 mg PO ONCE ONE Stop: 01/05/23 09:46 Ondansetron HCl (Ondansetron Hcl 4 Mg/2 Ml Vial) 4 mg IVPUSH Q8H PRN PRN Reason: Nausea and Vomiting Pharmacy Consult (Consult Rx Perform Med Rec) 1 each MISCELLANE ONCE PRN PRN Reason: Consult order Sodium Chloride (0.9 % Sodium Chloride Flush 3 Ml Syringe) 3 ml IVFLUSH QSHIFT [facility] Last Admin: 01/05/23 09:23 Dose: 3 ml Documented By: JAYDA Labs 01/04/23 08:40 01/04/23 08:40 Microbiology Microbiology Results: Microbiology 12/30/22 13:55 Blood Culture - Final Blood - Venous No growth after 5 days. 12/30/22 13:38 Blood Culture - Final Blood - Venous No growth after 5 days. Assessment and Plan (1) Toxic encephalopathy: Status: Acute (2) ELYSE (acute kidney injury): Status: Acute (3) Transaminitis: Status: Acute (4) Rhabdomyolysis: Status: Acute Plan 62-year-old male with a PMH significant for?previous stroke and polysubstance use disorder who presents to the ED with?generalized whole body weakness and pain since this morning.? Patient is a long-time daily user of cocaine and fentanyl, states yesterday he snorted a little over 1 g of cocaine likely laced with fentanyl and then passed out.? Patient was on the floor for an unknown period of ?many hours?. Pt was treated with IVF, cefepime, and started on a bicarb drip. Pt will be admitted to the hospital for treatment further evaluation of ELYSE secondary to rhabdomyolysis in the setting of cocaine use disorder. toxic metabolic encephalopathy likely from cocaine and other substance and worse by rhabdo, improving rhabdomylsis from being down from drug use,, cpk gone from 42k to now just 2k. 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 Will stop at this time Leg pains /body pains : d/t rhabdo, PT, prn pain meds, us leg neg for dvt Cocaine and substance use disorder Addiction medicine consult HypOnatremia: likely due to dehydration resolved with received IVF in ED hypERkalemia: d/t rhabo, resolved Full Code DVT Prophylaxis: Pneumatic boots PT evel inpatient need: treatment of?ELYSE secondary to rhabdomyolysis - on ivf ,need bmp /cpk levels moniterin,also pt/ot following for dispo(still very weak/could no). Time Spent With Patient Time: Total time managing care of this patient today ____ minutes. Quality Stroke Does the patient have a stroke diagnosis?: No VTE Prior VTE?: No VTE Risk Level:: Medical - moderate - high VTE Device Contraindication: N/A - Device Ordered VTE Drug Contraindication: Treatment Not Indicated
[2023-01-05] MEDS: methADONE HCl 20 MG/2 ML ORAL.CONC 5 MG PO (10:41)
--- NOTE | 2023-01-05 11:59 | MHC.CM.PN ---
Broad SNF search has been initiated and ERROL has made MD aware that there are no SNF bed offers as of yet.CM will follow.
--- NOTE | 2023-01-05 15:49 | MHC.RECOVRN ---
Met with pt in 453 to follow up after receiving methadone to address possible opioid withdrawal symptoms. Pt received one 5 mg dose yesterday and one 5 mg dose this morning. Pt sitting in bed, awake, alert, engages more in conversation than previous visits. Pt continues to report body aches, is unsure if methadone was helpful. Discussed indications for methadone and it is not appropriate to increase dose at this time. Pt reports cocaine is the enemy and states I wasn't born with it. I don't need it. Discussed other recovery support options, pt interested in meeting with a middle school football coach. T/w will have a other sports coach or instructor meet with pt this evening.
[2023-01-05] MEDS: Melatonin 3 MG TABLET 6 MG PO (21:03)
[2023-01-05] MEDS: Ketorolac Tromethamine 30 MG/ML VIAL IVPUSH (23:22)
[2023-01-06] MEDS: 0.9 % Sodium Chloride Flush 3 ML SYRINGE IVFLUSH ×3 (01:55→14:35)
[2023-01-06] MEDS: cefEPime HCl 1 GM in 0.9 % Sodium Chloride 50 ML IV (01:55)
[2023-01-06 03:41] VITALS: BP 119/69; PULSE 65; RESP 18; TEMP 36.5; O2SAT 96
[2023-01-06 07:14] VITALS: BP 101/69; PULSE 90; RESP 18; TEMP 36.6; O2SAT 98
--- NOTE | 2023-01-06 09:40 | P.PNIM_ITS ---
Subjective Subjective Date of Service: 01/06/23 Interval History: lucid, no agitation, has pain in the left leg and is swollen negative dvt Physical Exam Vital Signs: Vital Signs: Last Vital Signs Temp 97.9 F 01/06/23 07:14 Pulse 90 01/06/23 07:14 Resp 18 01/06/23 07:14 BP 101/69 01/06/23 07:14 Pulse Ox 98 01/06/23 07:14 O2 Del Method Room Air 01/06/23 07:14 BMI result Body Mass Index 25.7 Const: Other: General: Resp: CTA bilateral CVS: S1,S2,RRR GI: +BS, NT, no distention Skin: No rash Neuro: motor grossly intact Psych: appropriate affect Objective Data Active Medications Aspirin (Aspirin 81 Mg Tab.Chew) 81 mg PO DAILY [facility] Last Admin: 01/05/23 09:22 Dose: 81 mg Documented By: JAYDA Baclofen (Baclofen 10 Mg Tablet) 10 mg PO TID [facility] Last Admin: 01/05/23 21:03 Dose: 10 mg Documented By: MT Enoxaparin Sodium (Enoxaparin Sodium 40 Mg/0.4 Ml Syringe) 40 mg SUBCUT Q24H S Gabapentin (Gabapentin 100 Mg Capsule) 100 mg PO BID [facility] Last Admin: 01/05/23 21:03 Dose: 100 mg Documented By: MT Hydroxyzine HCl (Hydroxyzine Hcl 50 Mg Tablet) 50 mg PO Q8H PRN PRN Reason: Anxiety Last Admin: 01/05/23 21:03 Dose: 50 mg Documented By: MT Melatonin (Melatonin 3 Mg Tablet) 6 mg PO BEDTIME PRN PRN Reason: Insomnia Last Admin: 01/05/23 21:03 Dose: 6 mg Documented By: MT Ondansetron HCl (Ondansetron Hcl 4 Mg/2 Ml Vial) 4 mg IVPUSH Q8H PRN PRN Reason: Nausea and Vomiting Pharmacy Consult (Consult Rx Perform Med Rec) 1 each MISCELLANE ONCE PRN PRN Reason: Consult order Sodium Chloride (0.9 % Sodium Chloride Flush 3 Ml Syringe) 3 ml IVFLUSH QSHIFT [facility] Last Admin: 01/06/23 01:55 Dose: 3 ml Documented By: MT Labs 01/04/23 08:40 01/04/23 08:40 Assessment and Plan (1) Toxic encephalopathy: Status: Acute (2) ELYSE (acute kidney injury): Status: Acute (3) Transaminitis: Status: Acute (4) Rhabdomyolysis: Status: Acute Plan 62-year-old male with a PMH significant for?previous stroke and polysubstance use disorder who presents to the ED with?generalized whole body weakness and pain since this morning.? Patient is a long-time daily user of cocaine and fentanyl, states yesterday he snorted a little over 1 g of cocaine likely laced with fentanyl and then passed out.? Patient was on the floor for an unknown period of ?many hours?. Pt was treated with IVF, cefepime, and started on a bicarb drip. Pt will be admitted to the hospital for treatment further evaluation of ELYSE secondary to rhabdomyolysis in the setting of cocaine use disorder. toxic metabolic encephalopathy likely from cocaine and other substance and worse by rhabdo, resolved. rhabdomylsis from being down from drug use,, cpk gone from 42k to now just 2k. 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 Stop Cefepime 01/06 Leg pains /body pains : d/t rhabdo, PT, prn pain meds, us leg neg for dvt Cocaine and substance use disorder Addiction medicine consult HypOnatremia: likely due to dehydration resolved with received IVF in ED swollen left leg, no dvt by US hypERkalemia: d/t rhabo, resolved Full Code DVT Prophylaxis: Lovenox + Pneumatic boots refusing to participate in PT, therefore will need to be refered to snf Time Spent With Patient Time: Total time managing care of this patient today ____ minutes. Quality Stroke Does the patient have a stroke diagnosis?: No VTE Prior VTE?: No VTE Risk Level:: Medical - moderate - high VTE Device Contraindication: N/A - Device Ordered VTE Drug Contraindication: Treatment Not Indicated
[2023-01-06] MEDS: Gabapentin 100 MG CAPSULE PO (09:51)
[2023-01-06] MEDS: Aspirin 81 MG TAB.CHEW PO (09:51)
[2023-01-06] MEDS: Enoxaparin Sodium 40 MG/0.4 ML SYRINGE SUBCUT (09:52)
[2023-01-06] MEDS: Baclofen 10 MG TABLET PO ×2 (09:52→14:35)
--- NOTE | 2023-01-06 10:27 | MHC.CM.PN ---
Per ROUNDS discussion, Patient is medically cleared for dc today;PT is recommending STR but there have been no SNF bed offers. Sitter is being dc today. CM will follow.
[2023-01-06 11:43] VITALS: BP 124/67; PULSE 75; RESP 20; TEMP 36.8; O2SAT 97
[2023-01-06 13:21] VITALS: BP 124/67; PULSE 75; O2SAT 97
--- NOTE | 2023-01-06 14:57 | MHC.CM.PN ---
Patient has been medically cleared for dc to SNF/STR today. Patient will dc to [facility] today at 6:30 PM, via [facility]. ERROL met with Patient at bedside and he is very pleased with the dc plan. ERROL also spoke with Patient's Mother/Guillermo @ [phone] and informed her of the dc plan.
--- NOTE | 2023-01-06 15:02 | P.DS_ITS ---
DS: Providers Provider Date of Service: 01/06/23 Date of admission: 12/30/22 14:55 Primary care physician: Fariha Lopez MD Consults: 12/30/22 15:04 Addiction Medicine Routine Consulting Provider: Addiction Covering Reason for consultation: Cocaine use disorder Consult to Nephrology Routine Consulting Provider: Bernabe Olguin Reason for consultation: ELYSE secondary to rhabdomyolysis, CK >93815 Consult to Neurology Routine Consulting Provider: [facility] Reason for consultation: Hx of CVA, currently with left eyelid droop, ?CVA 12/31/22 12:18 Consult to Care Team Stat Comment: Reason for consultation: Post polysubstance OD (Opiate +cocaine) 01/01/23 11:13 Consult to Orthopedics Routine Consulting Provider: [facility] Reason for consultation: Cocaine use/left leg pain-? Question of compartment syndrome. Has provider been notified: No 01/02/23 15:56 Consult for Sitter Routine Reason for consultation: behaviour disturbances Has provider been notified: No DS: Diagnosis Discharge Diagnosis (1) Toxic encephalopathy: Status: Acute (2) ELYSE (acute kidney injury): Status: Acute (3) Transaminitis: Status: Acute (4) Rhabdomyolysis: Status: Acute DS: Summary Hospital Course Hospital Course: Attending physician on admission: Braulio Gaffney Chief Complaint: Generalized weakness, pain Pt is a 62-year-old male with a PMH significant for?previous stroke and polysubstance use disorder who presents to the ED with?generalized whole body weakness and pain since this morning.? Patient is a long-time daily user of cocaine and fentanyl, states yesterday he snorted a little over 1 g of cocaine likely laced with fentanyl and then passed out.? Patient was on the floor for an unknown period of ?many hours?. Pt awoke this morning and found he could barely move. Dragged himself across his floor to his door and was able to get the attention of his neighbor who called EMS. Pt has a previous hx of CVA but is not on any home meds. Last saw a PCP 5+ years ago.? Patient denies any localized pain.? Denies chest pain/pressure, palpitations.? No fever, chills, nausea, vomiting, abdominal pain.? Denies shortness of breath. In the ED? labs were significant for leukocytosis of 25.1, sodium of 131, BUN 63, creatinine 3.04, phosphorus 4.9, AST 1278, ALT 493, CPK > 12295, initial troponin 140.7 with repeat 160.7.? Urine negative for UTI. CXR showed no acute cardiopulmonary process. CT?of head no acute intracranial pathology but mild asymmetric left facial soft tissue without overt underlying osseous abnormality.? CTA of head neck found no acute facial fracture but did show asymmetric left periorbital soft tissue swelling, and symmetric foci of hypoattenuation within the globus pallidus of both lentiform new coli and questionable hypoattenuation of frontal lobes.? CTA did not find any stenosis of cervical carotid or vertebral arteries and no intracranial large vessel occlusion. EKG demonstrated normal sinus rhythm without evidence of ST elevations or depressions. Pt was treated with IVF, cefepime, and started on a bicarb drip. Pt will be admitted to the hospital for treatment further evaluation of ELYSE secondary to rhabdomyolysis in the setting of cocaine use disorder. Hospital course: Essentially 62-year-old male with a PMH significant for?previous stroke and polysubstance including cocaine and opioid use disorder who presents to the ED with?generalized whole body weakness.? Patient is a long-time daily user of cocaine and fentanyl, states and the day priror to hospitalization snorted a little over 1 g of cocaine that was laced with fentanyl and then passed out.? He was on the floor for an unknown period of time but likely prolonged hours. His work up was noable for rhabdomylosis with CPK level of 42K, Acute renal failure Serum creatine was .3, he had leukocytosis of 25K, LFTs were elevated as stated above. There was no evidence of acute infection as UA and CXR were unremarkable. CT of his head showed no acute finding. He was admitted for management of these issues. Acute rhabomylosis d/t prolonged periods of lying down from cocaine and Fentanyl use. Management consisted of IVF with bicab and overtime CPD gradually went down from 42,000 to just 2,000. Associated with rhabomylosis he had diffuse muscle pain that is now better. 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 This leukocytosis is likely a reactive from processs from rhabdo toxic metabolic encephalopathy --he presented confused likely from effect of drugs and rhabdomylosis, he is now lucid Transaminitis likely from acute liver injury from cocain, rhabdomylosis and likely shock liver. LFTs have continued to trend down and is expected to normal with course of time. Leg pains /body pains and particulary left leg swelling but not tense, he states this has been swollen for long time. DVT study was negative. Polysubstance use--addiction med has been following Dispo: to short term rehab for less than 30 days Time Spent with Patient Time attestation: Total time managing care of this patient today ____ minutes. Discharge coordination time: Greater than 30 minutes Quality: Safe Use of Opioids Does Pt have an Active Cancer Diagnosis on the Problem List?: No Quality: Stroke Does the patient have a stroke diagnosis?: No Physical Exam Vital Signs: Vital Signs: Last Vital Signs Temp 98.2 F 01/06/23 11:43 Pulse 75 01/06/23 13:21 Resp 20 01/06/23 11:43 BP 124/67 01/06/23 13:21 Pulse Ox 97 01/06/23 13:21 O2 Del Method Room Air 01/06/23 11:43 BMI result Body Mass Index 25.7 DS: Data Data Completed and Pending Completed studies during hospitalization [Text1]: Procedures Drainage of Peritoneal Cavity, Percutaneous Approach (05/17/22) Resection of Appendix, Percutaneous Endoscopic Approach (05/17/22) Discharge Plan Discharge Anticipated Discharge Date/Time: 01/06/23 15:20 Patient Disposition: Xfer SNF Discharge Diagnosis: Rhabdomylosis, acute kidney injury, metabolic encephlopathy, Referrals: [facility] [Outside] - 1 Week Fariha Lopez MD [Primary Care Provider] - 01/10/23 10:00 am (You have a new patient appointment scheduled if you need to reschedule call doctors office. ) Discharge Medications: New hydroxyzine HCl 50 mg Tablet 50 mg PO Q8H PRN (Reason: Anxiety) Qty: 20 0RF melatonin 3 mg Tablet 6 mg PO BEDTIME PRN (Reason: Insomnia) Qty: 30 0RF aspirin 81 mg Tablet,Chewable 81 mg PO DAILY Qty: 30 0RF gabapentin 100 mg Capsule 100 mg PO BID Qty: 30 0RF Discharge Orders: Discharge Order (Routine); Ordered 01/06/23 Ordered By: Reed Nye Diet: Advance to usual diet Activity on Discharge: As tolerated Stand Alone Forms: Patient Portal Discharge page Care Plan Goals: Full recovery from muscle weakness due to rhabdomylosis Health Concerns: weakness, rhabdomylosis, ilicit drug use Plan of Treatment: To short term rehab for less than 30 days Assessment: as above
--- NOTE | 2023-01-06 15:04 | MHC.CM.PN ---
CM also spoke with Patient's Sister/Louise @ [phone], at Patient's Mother's request. Louise is very pleased with the dc plan.
[2023-01-06 16:00] VITALS: BP 124/64; PULSE 76; RESP 18; TEMP 37.1; O2SAT 97
== END 2023-01-06 19:48 | disposition skilled nursing facility (03) | DRG 816 ==
LOC: HO.ED 14:09 → HO.EDOVER 15:06 → HO.IMC 17:16
PROVIDERS: Internal Medicine; Admitting Provider Student in an Organized Health Care Education/Training Program; Emergency Provider Emergency Medicine Emergency Medical Services; PCP Family Medicine; Visit Provider Internal Medicine
DX: T40.5X1A Poisoning by cocaine, accidental (unintentional), initial encounter (principal); K72.00 Acute and subacute hepatic failure without coma; G92.8 Other toxic encephalopathy; N17.9 Acute kidney failure, unspecified; E87.1 Hypo-osmolality and hyponatremia; F19.10 Other psychoactive substance abuse, uncomplicated; F14.10 Cocaine abuse, uncomplicated; M62.82 Rhabdomyolysis; E87.5 Hyperkalemia; E86.0 Dehydration; Z87.891 Personal history of nicotine dependence
CPT/HCPCS: 36415; 70450; 70496; 70498; 71045; 76700; 80048; 80053; 80076; 80143; 80179; 80307; 81001; 82550; 82947; 83036; 83605; 83735; 84100; 84484; 85025; 85027; 85610; 85730; 86704; 86706; 86709; 86803; 87040; 87340; 93005; 93306; 93971; 97110; 97116; 97163; 97166; 97530; 99285; J0692; J1200; J1650; J1885; J2270; Q9967

== ENCOUNTER → 2022-12-30 10:55 | Outpatient (BNV) | payer MEDICAID, SELFPAY | PROVIDERS: Admitting Provider Student in an Organized Health Care Education/Training Program; Emergency Provider Emergency Medicine Emergency Medical Services; Visit Provider Internal Medicine Cardiovascular Disease | DX: G92.9 Unspecified toxic encephalopathy (principal); I63.9 Cerebral infarction, unspecified | CPT/HCPCS: 93010 ==

== ENCOUNTER 2022-12-30 14:55 | Outpatient (BNV) | payer MEDICAID, SELFPAY | END 2022-12-31 13:00 | PROVIDERS: Admitting Provider Student in an Organized Health Care Education/Training Program; Emergency Provider Emergency Medicine Emergency Medical Services; PCP Family Medicine; Visit Provider Internal Medicine Cardiovascular Disease | DX: G92.9 Unspecified toxic encephalopathy (principal); I63.9 Cerebral infarction, unspecified | CPT/HCPCS: 93306 ==

== ENCOUNTER → 2022-12-30 14:55 | Outpatient (BNV) | payer MEDICAID, SELFPAY | PROVIDERS: Admitting Provider Student in an Organized Health Care Education/Training Program; Emergency Provider Emergency Medicine Emergency Medical Services; PCP Family Medicine; Visit Provider Physician Assistant | DX: M62.82 Rhabdomyolysis (principal) | CPT/HCPCS: 99221 ==

== ENCOUNTER → 2022-12-30 14:55 | Outpatient (BNV) | payer MEDICAID, SELFPAY | PROVIDERS: Admitting Provider Student in an Organized Health Care Education/Training Program; Emergency Provider Emergency Medicine Emergency Medical Services; Visit Provider Student in an Organized Health Care Education/Training Program | DX: G92.9 Unspecified toxic encephalopathy (principal); N17.9 Acute kidney failure, unspecified; R74.01 Elevation of levels of liver transaminase levels; M62.82 Rhabdomyolysis | CPT/HCPCS: 99223; 99232; 99233; 99239 ==

== ENCOUNTER → 2022-12-30 14:55 | Outpatient (BNV) | payer OTHER, SELFPAY | PROVIDERS: Admitting Provider Student in an Organized Health Care Education/Training Program; Emergency Provider Emergency Medicine Emergency Medical Services; PCP Family Medicine; Visit Provider Nurse Practitioner Psychiatric/Mental Health | DX: F11.93 Opioid use, unspecified with withdrawal (principal) | CPT/HCPCS: 99232; 99499 ==

== ENCOUNTER 2023-12-19 11:25 | Emergency (ER) | payer OTHER, SELFPAY ==
[2023-12-19 11:57] VITALS: BP 107/70; BP 145/93; PULSE 85; PULSE 90; RESP 12; TEMP 36.6; O2SAT 90; O2SAT 94; BMI 25.7
--- NOTE | 2023-12-19 12:08 | ED_ITS ---
HPI - General Adult General Chief complaint: Overdose Stated complaint: AMS,? HEROIN OD,NO NARCAN GIVEN PER EMS Time Seen by Provider: 12/19/23 12:05 Source: patient Mode of arrival: ambulatory Limitations: no limitations History of Present Illness HPI narrative: This is a 63yom with a pmhx of stroke, polysubstance use (cocaine and fentanyl) disorder who is BIBMES for unresponsiveness. Per triage note, patient required sternal rub and no Narcan was given albeit heroin was found on the scene. Patient states he's not sure why he is here. He states we were all just getting high . He states his girlfriend must have called for an ambulance. He states he is not sure why and states that an ambulance showed up and that it was like a nightmare . He adds that no body wants to get woken up like that . He states no complaints. He states no injury or pain. He states he is a disabled . He states he uses a cane/walker normally due to right-sided arm and leg weakness. He states no new weakness. He statets no headache, vision changes, speech changes, hearing changes, paresthesias, neck pain, back pain, chest pain, dyspnea, abdominal pain, arm/leg pain, nausea/vomiting, urinary symptoms or changes to bowel habits. Related Data Previous Rx's ?Medication ?Instructions ?Recorded aspirin 81 mg chewable tablet 81 mg PO DAILY #30 tabs 01/06/23 gabapentin 100 mg capsule 100 mg PO BID #30 caps 01/06/23 hydroxyzine HCl 50 mg tablet 50 mg PO Q8H PRN Anxiety #20 tabs 01/06/23 melatonin 3 mg tablet 6 mg (2 x 3 mg) PO BEDTIME PRN 01/06/23 Insomnia #30 tabs Allergies Allergy/AdvReac Type Severity Reaction Status Date / Time acetaminophen Allergy Unknown RASH, ITCHY Verified 12/19/23 12:01 [From Tylenol-Codeine] codeine Allergy Unknown RASH, ITCHY Verified 12/19/23 12:01 [From Tylenol-Codeine] Penicillins Allergy Unknown RASH, ITCHY Verified 12/19/23 12:01 Review of Systems 2 Review of Systems: ROS as per HPI PMFSH Past Medical History Surgical History H/O inguinal hernia repair S/P laparoscopic appendectomy (05/19/22) Social History Social History Household Members: None Household Members Other:: 1 Housing: Apartment Do you presently have visiting nurse or other home services: No Comment: 1:1 sitter Patient Tobacco Use Status: Former Tobacco user Tobacco use type: Cigarette Smoked in Last 30 Days: No Use of substances other than those prescribed or required for medical reasons: Yes Substance Use Type: Crack/Cocaine and Heroin Last Used Substance: Just Prior to Admission Advance Directives: No Advance Directives Information Provided: Yes service: No Current occupational status: disabled Physical Exam ED Vital Signs: Vital Signs - 24 hr 12/19/23 11:57 12/19/23 13:11 12/19/23 15:02 Temperature 98 F 97.7 F Pulse Rate 85 57 44 L Respiratory Rate 12 12 16 Blood Pressure 107/70 111/62 Pulse Oximetry 94 95 94 Oxygen Delivery Method Room Air Room Air Room Air 12/19/23 15:25 Temperature 97.7 F Pulse Rate 44 L Respiratory Rate 16 Blood Pressure 111/62 Pulse Oximetry 94 Oxygen Delivery Method Room Air BMI result Body Mass Index 25.7 Gen: NAD, AOx3 HEENT: NCAT, EOMI, normal conjunctiva CV: RRR, 2+ bilateral radial and DP pulses Pulm: CTAB, no increased work of breathing GI: Soft, NTND, no rebound, guarding or rigidity MSK: Bilateral upper and lower extremity compartments are soft, no midline vertebral tenderness to palpation, full range of motion with neck flexion/extension and lateral 45 degree rotation Neuro: Cranial nerves 2-12 not individually assessed though grossly intact, grossly intact, moving all extremities spontaneously Medications Administered Discontinued Medications Generic Name Dose Route Start Last Admin Trade Name Freq PRN Reason Stop Dose Admin Lactated Ringer's 1,000 mls @ 999 mls/hr 12/19/23 12:23 12/19/23 13:06 Lr IV 12/19/23 13:23 999 mls/hr .Q1H1M ONE Administration Medical Decision Making Medical Decision Making MDM Narrative: Differential diagnosis includes, but is not limited to drug abuse, drug overdose, dehydration, acute kidney injury, rhabdomyolysis, electrolyte derangement. Patient is afebrile and hemodynamically stable on room air. Exam is benign and reassuring. Patient is provided 1 L IV LR while awaiting blood work. I reviewed and interpreted labs, which are noncontributory. Of note, patient is at baseline anemia with hemoglobin of 13.6 (previous 13.5). Metabolic panel is reassuring with no electrolyte derangements or evidence of acute kidney injury. Hanna kinase is very minimally at 196 (reference range upper limit of normal is 174), which is not consistent for clinically significant rhabdomyolysis. I reviewed and interpreted EKG, which is unremarkable for any acute findings. On re-examination, patient is well-appearing and in no acute distress. Patient is awake, alert and has decision-making capacity. He is tolerating p.o. intake and states that he is feeling well for discharge. Patient states that he has not interested in speaking to social work/addiction medicine. There is no indication for further emergent evaluation in this otherwise well-appearing patient as above. ?Patient is provided written and verbal instructions, educational materials, recommendations for outpatient follow-up, strict return precautions and teach back is performed. ?Patient states understanding and agreement with plan of care. ?Patient is discharged home in stable and improved condition. Admission/Observation Consideration of admission/observation: Escalation of care including admission/observation considered Lab Data MDM Lab Attestation statement: I reviewed the patient's lab results. 12/19/23 13:05 12/19/23 13:05 Labs: Lab Results 12/19/23 Range/Units 13:05 WBC 6.2 (4.8-10.8) X10*3/uL RBC 4.29 L (4.60-5.80) X10*6/uL Hgb 13.6 L (14.0-18.0) g/dl Hct 40.1 L (42.0-52.0) % MCV 93.5 (80.0-98.0) fL MCH 31.7 (27.0-33.0) pg MCHC 33.9 (31.0-36.0) g/dl RDW 12.5 (11.0-16.0) % Plt Count 192 (160-400) X10*3/uL MPV 10.3 (9.4-12.4) fL Immature Gran % (Auto) 0.3 (0.0-0.4) % Neut % (Auto) 74.6 H (45-73) % Lymph % (Auto) 14.6 L (20-40) % Gosper % (Auto) 8.0 (2-11) % Eos % (Auto) 2.0 (0-4) % Baso % (Auto) 0.5 (0-2) % Lymph # (Auto) 0.9 L (1.2-4.9) X10*3/uL Gosper # (Auto) 0.5 (0.1-1.2) X10*3/uL Eos # (Auto) 0.1 (0.0-0.4) X10*3/uL Baso # (Auto) 0.0 (0.0-0.2) X10*3/uL Abs Immat Gran (auto) 0.02 (0.00-0.03) X10*3/uL Absolute Neuts (auto) 4.6 (2.0-8.3) x10*3/uL Absolute Nucleated RBC 0.000 (0.0-0.012) X10*3/uL Nucleated RBC % (auto) 0.0 (0.0-0.2) /100WBC Sodium 140 (135-145) mmol/L Potassium 4.1 (3.3-5.1) mmol/L Chloride 105 (96-108) mmol/L Carbon Dioxide 27 (22-29) mmol/L Anion Gap 12 (12-20) BUN 14 (9-16) mg/dL Creatinine 0.94 (0.5-1.4) mg/dL Estim Creat Clear Calc 68.2 Estimated GFR > 60 Random Glucose 111 (60-115) mg/dL Calcium 8.8 D (8.4-10.2) mg/dL Total Creatine Kinase 196 H (38-174) U/L Ethyl Alcohol < 10 mg/dL Independent Interpretation I performed an independent interpretation of an: EKG Interpretation: EKG shows sinus bradycardia at 55 beats per minute, CT 154, QRS 94, QTC 453, T- wave inversion lead V1-V2, no STEMI (compared to prior EKG December 30, 2022 there are no diagnostic ischemic changes) Discharge Plan Discharge Clinical Impression: Current drug use Patient Disposition: Home, Self-Care Instructions: Cocaine Abuse (ED), Opioid Use Disorder (ED) Additional Instructions: You were seen and evaluated in the emergency room. Your vital signs were normal and he did not have fever. ? Your blood work and EKG were reassuring. Please follow-up with your primary care doctor in the next 5-7 days. ? Please return to the emergency room if you develop any worsening symptoms including, but not limited to fever, chest pain or difficulty breathing or if you would like help with your drug use. Prescriptions: No Action hydroxyzine HCl 50 mg Tablet 50 mg PO Q8H PRN (Reason: Anxiety) Qty: 20 0RF melatonin 3 mg Tablet 6 mg PO BEDTIME PRN (Reason: Insomnia) Qty: 30 0RF aspirin 81 mg Tablet,Chewable 81 mg PO DAILY Qty: 30 0RF gabapentin 100 mg Capsule 100 mg PO BID Qty: 30 0RF Interventions: ED Discharge Assessment Last Done: 12/19/23 15:25 Discharge Date/Time: 12/19/23 15:25 Print Language: Scottish
--- NOTE | 2023-12-19 12:23 | ECG_ITS ---
Test Reason : Overdose Blood Pressure : / mmHG Vent. Rate : 055 BPM Atrial Rate : 055 BPM P-R Int : 154 ms QRS Dur : 094 ms QT Int : 474 ms P-R-T Axes : 057 040 032 degrees QTc Int : 453 ms Sinus bradycardia Otherwise normal ECG When compared with ECG of 30-DEC-2022 11:26, Vent. rate has decreased BY 45 BPM Referred By: Tono Mauricio Electronically Signed By:GERONIMO PEREZ
[2023-12-19] MEDS: Lactated Ringers 1,000 ML 999 ML IV (13:06)
[2023-12-19 13:10] LABS: MANUAL DIFF FLAG NO
[2023-12-19 13:11] VITALS: PULSE 57; RESP 12; O2SAT 95
[2023-12-19 13:13] LABS: Basophils Percent Auto 0.5 % (0-2); Eosinophils Absolute Auto 0.1 X10*3/uL (0.0-0.4); Hematocrit 40.1 % (42.0-52.0); Hemoglobin 13.6 g/dl (14.0-18.0); Imm Gran Abs Auto 0.02 X10*3/uL (0.00-0.03); Imm Gran Pct Auto 0.3 % (0.0-0.4); Lymphocytes Absolute Auto 0.9 X10*3/uL (1.2-4.9); Lymphocytes Percent Auto 14.6 % (20-40); Mean Corpuscular HGB Conc 33.9 g/dl (31.0-36.0); Mean Corpuscular Hemoglobin 31.7 pg (27.0-33.0); Mean Corpuscular Volume 93.5 fL (80.0-98.0); Mean Platelet Volume 10.3 fL (9.4-12.4); Monocytes Absolute Auto 0.5 X10*3/uL (0.1-1.2); Neutrophils Absolute Auto 4.6 x10*3/uL (2.0-8.3); Neutrophils Percent Auto 74.6 % (45-73); Platelet Count 192 X10*3/uL (160-400); Red Blood Count 4.29 X10*6/uL (4.60-5.80); Red Cell Distribution Width 12.5 % (11.0-16.0); White Blood Count 6.2 X10*3/uL (4.8-10.8)
[2023-12-19 13:39] LABS: Anion Gap 12 (12-20); Blood Urea Nitrogen 14 mg/dL (9-16); Calcium 8.8 mg/dL (8.4-10.2); Carbon Dioxide 27 mmol/L (22-29); Chloride 105 mmol/L (96-108); Creatinine Clr Calc Pharmacy 68.2; Estimated Glomerular Filt Rate > 60; Ethanol < 10 mg/dL; Glucose Random 111 mg/dL (60-115); Potassium 4.1 mmol/L (3.3-5.1); Sodium 140 mmol/L (135-145)
[2023-12-19 15:02] VITALS: BP 111/62; PULSE 44; RESP 16; TEMP 36.5; O2SAT 94
[2023-12-19 15:25] VITALS: BP 111/62; PULSE 44; RESP 16; TEMP 36.5; O2SAT 94
== END 2023-12-19 15:25 | disposition home or self-care (01) ==
PROVIDERS: Emergency Provider Emergency Medicine
DX: T40.1X1A Poisoning by heroin, accidental (unintentional), initial encounter (principal); R00.1 Bradycardia, unspecified; Y92.9 Unspecified place or not applicable; Z71.51 Drug abuse counseling and surveillance of drug abuser; Z79.899 Other long term (current) drug therapy
CPT/HCPCS: 36415; 80048; 80307; 82550; 85025; 93005; 99283; 99285; J7120

== ENCOUNTER → 2023-12-19 12:23 | Outpatient (BNV) | payer OTHER, SELFPAY | PROVIDERS: Emergency Provider Emergency Medicine; Visit Provider Internal Medicine | DX: R00.1 Bradycardia, unspecified (principal) | CPT/HCPCS: 93010 ==

== ENCOUNTER 2024-08-09 10:19 | Emergency (ER) | payer OTHER, SELFPAY ==
--- NOTE | 2024-08-09 11:01 | ED.GENADULT ---
HPI - General Adult General Chief complaint: Wound/Laceration Stated complaint: infected cyst Time Seen by Provider: 08/09/24 20:46 Source: patient Mode of arrival: ambulatory Limitations: no limitations History of Present Illness ED Provider: Dr. Shorty Drake HPI narrative: 64-year-old male with a history of CVA who presents emergency department for evaluation of abscess to his left thigh. He states that the abscess started as a small pimple proximally 1 week prior and now is grown larger. He states that the area in his left thigh is painful and warm to the touch. He denied fever, chills, fatigue, nausea or vomiting. Related Data Previous Rx's ?Medication ?Instructions ?Recorded aspirin 81 mg chewable tablet 81 mg PO DAILY #30 tabs 01/06/23 gabapentin 100 mg capsule 100 mg PO BID #30 caps 01/06/23 hydroxyzine HCl 50 mg tablet 50 mg PO Q8H PRN Anxiety #20 tabs 01/06/23 melatonin 3 mg tablet 6 mg (2 x 3 mg) PO BEDTIME PRN 01/06/23 Insomnia #30 tabs cephalexin 500 mg capsule 500 mg PO QID 5 days #20 caps 08/09/24 doxycycline hyclate 100 mg tablet 100 mg PO Q12H 5 days #10 tabs 08/09/24 ibuprofen 400 mg tablet 400 mg PO TID PRN fever or pain 08/09/24 #30 tabs oxycodone 5 mg tablet 5 mg PO Q6H PRN pain #10 tabs 08/09/24 Allergies Allergy/AdvReac Type Severity Reaction Status Date / Time acetaminophen Allergy Unknown RASH, ITCHY Verified 08/09/24 11:03 [From Tylenol-Codeine] codeine Allergy Unknown RASH, ITCHY Verified 08/09/24 11:03 [From Tylenol-Codeine] Penicillins Allergy Unknown RASH, ITCHY Verified 08/09/24 11:03 Review of Systems Review of Systems: Yes all other systems are reviewed and are negative PMFSH Past Medical History Surgical History H/O inguinal hernia repair S/P laparoscopic appendectomy (05/19/22) Social History Social History Household Members: None Household Members Other:: 1 Housing: Apartment Do you presently have visiting nurse or other home services: No Comment: 1:1 sitter Patient Tobacco Use Status: Former Tobacco user Tobacco use type: Cigarette Substance Use Type: Crack/Cocaine and Heroin Advance Directives: Yes Advance Directives Information Provided: Yes Advance Directives on File: No Do you have a plan to hurt others: No Plan service: No Current occupational status: disabled Physical Exam ED Vital Signs: Vital Signs - 24 hr 08/09/24 11:03 08/09/24 14:20 08/09/24 20:21 Temperature 99.0 F 98.2 F 98.5 F Pulse Rate 80 84 68 Respiratory Rate 16 16 16 Blood Pressure 124/72 112/65 115/68 Pulse Oximetry 97 96 98 Oxygen Delivery Method Room Air Room Air Room Air BMI result Body Mass Index 23.9 Vital signs were normal Exam, Left thigh, patient has a 6 cm x 5 cm area flocculence in the center of the larger area erythema proximally 15 cm x 7 cm, there is a central cicatrix. The area is warm to the touch. The area is tender to palpation. Course Course Course Narrative: This is a rapid medical exam performed by Rodrigo Ott NP: Additional HPI, ROS, PE not included below will be deferred to primary provider. Patient is a 64-year-old male with history of CVA, polysubstance use presenting with complaint of abscess to left thigh x 1 week. 7cm diameter area of erythema with 2cm central scab. Denies fevers, chills, body aches. Plan: labs including cultures Medications Administered Discontinued Medications Generic Name Dose Route Start Last Admin Trade Name Pantera PRN Reason Stop Dose Admin Cephalexin HCl 500 mg 08/09/24 21:13 08/09/24 21:34 Cephalexin 500 Mg Capsule PO 08/09/24 21:14 500 mg ONCE ONE Administration Doxycycline Monohydrate 100 mg 08/09/24 21:13 08/09/24 21:34 Doxycycline Monohydrate 100 Mg Capsule PO 08/09/24 21:14 100 mg ONCE ONE Administration Lidocaine HCl 5 ml 08/09/24 21:10 08/09/24 21:34 Lidocaine Hcl 1 % Mpf 5 Ml Vial INFILTRATI 08/09/24 21:11 5 ml ONCE STA Administration Oxycodone HCl 10 mg 08/09/24 21:11 08/09/24 21:34 Oxycodone Hcl Immed Release 5 Mg Tablet PO 08/09/24 21:12 10 mg ONCE ONE Administration Procedures Abscess I/D Site: lower extremity (Left lateral thigh) Side (if applicable): left Local Anesthetic: lidocaine 1% Amount of anesthesia used (mL): 5 Technique: incised with blade (#11) Amount of fluid expressed (mL): 30 Sent for culture/gram staining?: Yes Irrigation: No Packing used?: iodoform (06/21 ) Complications: other (I did debride the central area of cicatration since this was non-vital tissue) Medical Decision Making Medical Decision Making [facility] Narrative: 64-year-old male with a history of CVA who presents emergency department evaluation of left thigh abscess/cellulitis x1 week. Patient was vital signs were normal. Patient has a flocculent abscess to his left thigh with surrounding erythema. Differential diagnosis: ?Includes but is not limited to abscess, cellulitis Course: 21:14 Patient was laboratory evaluation was unremarkable, initially had a lactic acid of 2.1 and repeat was 1.3. The patient was abscess was incised, drained and packed with iodoform gauze. Patient tolerated the procedure well. Patient was prescribed doxycycline 100 mg q.12 hours x5 days and Keflex 500 mg q.i.d. x5 days. He was also given a prescription for ibuprofen 400 mg 3 times a day as needed for pain and for pain not relieved by ibuprofen he was prescribed oxycodone 5 mg every 6 hours as needed for pain, dispense 10 tablets. Patient was given printed and verbal instructions and discharged home. Patient was given his 1st dose of doxycycline 100 mg, Keflex 500 mg and oxycodone 10 mg orally. Patient has a history of stroke with left-sided hemiparesis, he was difficulty walking secondary to his stroke and therefore he will need to ambulance transport home. Admission/Observation Consideration of admission/observation: Escalation of care including admission/observation considered (Yes) Lab Data [facility] Lab Attestation statement: I reviewed the patient's lab results. My independent interpretation patient's laboratory evaluation as follows: CBC was normal. CMP was normal except for an elevated BUN of 17 and elevated glucose of 117. Patient was lactic acid was initially 2.1 and repeat was 1.3. CRP was elevated 1.88 ESR was elevated 40. 08/09/24 11:37 08/09/24 11:37 Labs: Lab Results 08/09/24 08/09/24 Range/Units 11:37 20:34 WBC 9.6 (4.8-10.8) X10*3/uL RBC 5.29 D (4.60-5.80) X10*6/uL Hgb 16.3 (14.0-18.0) g/dl Hct 48.8 D (42.0-52.0) % MCV 92.2 (80.0-98.0) fL MCH 30.8 (27.0-33.0) pg MCHC 33.4 (31.0-36.0) g/dl RDW 12.0 (11.0-16.0) % Plt Count 278 D (160-400) X10*3/uL MPV 9.8 (9.4-12.4) fL Immature Gran % (Auto) 0.2 (0.0-0.4) % Neut % (Auto) 74.7 H (45-73) % Lymph % (Auto) 14.1 L (20-40) % Mccone % (Auto) 5.6 (2-11) % Eos % (Auto) 5.1 H (0-4) % Baso % (Auto) 0.3 (0-2) % Lymph # (Auto) 1.4 (1.2-4.9) X10*3/uL Mccone # (Auto) 0.5 (0.1-1.2) X10*3/uL Eos # (Auto) 0.5 H (0.0-0.4) X10*3/uL Baso # (Auto) 0.0 (0.0-0.2) X10*3/uL Abs Immat Gran (auto) 0.02 (0.00-0.03) X10*3/uL Absolute Neuts (auto) 7.1 (2.0-8.3) x10*3/uL Absolute Nucleated RBC 0.000 (0.0-0.012) X10*3/uL Nucleated RBC % (auto) 0.0 (0.0-0.2) /100WBC ESR 40 H (0-15) MM/HR Sodium 145 (135-145) mmol/L Potassium 4.0 (3.3-5.1) mmol/L Chloride 108 (96-108) mmol/L Carbon Dioxide 27 (22-29) mmol/L Anion Gap 14 (12-20) BUN 17 H (9-16) mg/dL Creatinine 0.86 (0.5-1.4) mg/dL Estim Creat Clear Calc 73.6 Estimated GFR > 60 Random Glucose 117 H (60-115) mg/dL Lactic Acid 2.1 H* (0.5-2.0) mmol/L Lactic Acid F/U @ 2Hr 1.3 (0.5-2.0) mmol/L Calcium 10.0 D (8.4-10.2) mg/dL Total Bilirubin 0.4 (0.0-1.0) mg/dL AST 25 (5-37) U/L ALT 17 (0-40) U/L Alkaline Phosphatase 81 (39-117) U/L C-Reactive Protein 1.88 H (< or = 0.50) mg/dL Total Protein 8.7 H (6.5-8.0) g/dL Albumin 4.3 (3.5-5.0) g/dL Prescription Management I considered prescription management with: Pain Medication (Ibuprofen and oxycodone) and Antibiotic (Doxycycline and Keflex) Chronic Conditions Patient?s care impacted by: Other (Stroke) Discharge Plan Discharge Clinical Impression: Cellulitis and abscess of left leg, Encounter for incision and drainage procedure Patient Disposition: Home, Self-Care Instructions: Abscess (ED), Incision and Drainage (ED) Additional Instructions: Your abscess was cut into, drained and packed with gauze. The gauze packing needs to stay in for 4 days. If the packing falls out before 4 days it does not need to be replaced. Want you to follow-up with your primary care doctor [facility] in 4 days for re-evaluation and have the packing removed. Take ibuprofen 200 mg pills, 3 pills every 6 hours as needed for pain. For pain not relieved by ibuprofen take oxycodone 5 mg pills, 1 pill every 6 hours as needed for pain. Do not drive or work while taking this medication since they can cause sleepiness. Oxycodone is a narcotic medication that can be addicting. If you are concerned about addiction you can ask the pharmacist for less pills or do not get this prescription filled. Take doxycycline 100 mg pills, 1 pill every 12 hours times 5 days and Keflex (cephalexin) 500 mg pills, 1 pill 4 times a day for 5 days. Watch for signs of worsening infection which would include increased redness around the wound, increased pain, drainage of pus, fever, chills, fatigue or weakness. Follow-up with your doctor in 4 days. Please return to the emergency department if your symptoms get worse or if you develop any symptoms that are concerning to you. Prescriptions: New cephalexin 500 mg capsule 500 mg PO QID 5 Days Qty: 20 0RF ibuprofen 400 mg tablet 400 mg PO TID PRN (Reason: fever or pain) Qty: 30 0RF doxycycline hyclate 100 mg tablet 100 mg PO Q12H 5 Days Qty: 10 0RF oxycodone 5 mg tablet 5 mg PO Q6H PRN (Reason: pain) Qty: 10 0RF Rx Instructions: Partial Fill upon patient request. No Action hydroxyzine HCl 50 mg Tablet 50 mg PO Q8H PRN (Reason: Anxiety) Qty: 20 0RF melatonin 3 mg Tablet 6 mg PO BEDTIME PRN (Reason: Insomnia) Qty: 30 0RF aspirin 81 mg Tablet,Chewable 81 mg PO DAILY Qty: 30 0RF gabapentin 100 mg Capsule 100 mg PO BID Qty: 30 0RF Print Language: Indonesian
[2024-08-09 11:03] VITALS: BP 124/72; PULSE 80; RESP 16; TEMP 37.2; O2SAT 97; BMI 23.9
[2024-08-09 11:43] LABS: MANUAL DIFF FLAG NO
[2024-08-09 11:46] LABS: Basophils Percent Auto 0.3 % (0-2); Eosinophils Absolute Auto 0.5 X10*3/uL (0.0-0.4); Eosinophils Percent Auto 5.1 % (0-4); Hematocrit 48.8 % (42.0-52.0); Hemoglobin 16.3 g/dl (14.0-18.0); Imm Gran Abs Auto 0.02 X10*3/uL (0.00-0.03); Imm Gran Pct Auto 0.2 % (0.0-0.4); Lymphocytes Absolute Auto 1.4 X10*3/uL (1.2-4.9); Lymphocytes Percent Auto 14.1 % (20-40); Mean Corpuscular HGB Conc 33.4 g/dl (31.0-36.0); Mean Corpuscular Hemoglobin 30.8 pg (27.0-33.0); Mean Corpuscular Volume 92.2 fL (80.0-98.0); Mean Platelet Volume 9.8 fL (9.4-12.4); Monocytes Absolute Auto 0.5 X10*3/uL (0.1-1.2); Monocytes Percent Auto 5.6 % (2-11); Neutrophils Absolute Auto 7.1 x10*3/uL (2.0-8.3); Neutrophils Percent Auto 74.7 % (45-73); Platelet Count 278 X10*3/uL (160-400); Red Blood Count 5.29 X10*6/uL (4.60-5.80); White Blood Count 9.6 X10*3/uL (4.8-10.8)
[2024-08-09 12:06] LABS: Alanine Aminotransferase 17 U/L (0-40); Albumin Level 4.3 g/dL (3.5-5.0); Alkaline Phosphatase 81 U/L (39-117); Anion Gap 14 (12-20); Aspartate Amino Transferase 25 U/L (5-37); Bilirubin Total 0.4 mg/dL (0.0-1.0); Blood Urea Nitrogen 17 mg/dL (9-16); C Reactive Protein 1.88 mg/dL (< or = 0.50); Carbon Dioxide 27 mmol/L (22-29); Chloride 108 mmol/L (96-108); Creatinine Clr Calc Pharmacy 73.6; Estimated Glomerular Filt Rate > 60; Glucose Random 117 mg/dL (60-115); Lactic Acid 2.1 mmol/L (0.5-2.0); Sodium 145 mmol/L (135-145); Total Protein 8.7 g/dL (6.5-8.0)
[2024-08-09 12:31] LABS: Erythrocyte Sedimentation Rate 40 MM/HR (0-15)
--- OUTSIDE RECORDS SUMMARY | 2024-08-09 12:55 | XMS_ITS | Clinical Summary ---
Author Organization [employer] Address [address] [place] [address] Care Team Providers Care Manager Pe Name Role Phone Fariha Lopez MD Primary Care Provider [phone] Allergies Active Allergy Reactions Criticality Noted Date Comments Codeine 12/07/2022 Morphine 12/07/2022 Penicillin G Rash Low 12/07/2022 Medications mupirocin (Bactroban) 2 % ointment APPLY TO THE AFFECTED AREA(S) TOPICALLY TWICE DAILY 2 Active Encounters Date Type Department Care Team Description 07/20/2024 Patient Outreach [facility] [address] [place] [address] Wojciech Trujillo from Last 3 Months Social History Tobacco Use Types Packs/Day Years Used Date Smoking Tobacco: Never Assessed Sex and Gender Information Value Date Recorded Sex Assigned at Male 12/13/2022 11:14 AM EDT Legal Sex Male 11:12 AM EDT Gender Identity Male 12/13/2022 11:14 AM EDT Sexual Orientation Straight 12/13/2022 11 :14 AM EDT Plan of Treatment Health Maintenance Due Date Last Done Comments CT Colonography 1961 Colonoscopy 1961 Colorectal Cancer Screening 1961 Depression Screening 1961 FIT DNA/Cologuard 1961 FIT 1961 FOBT 1961 HIV Screening 1961 Lipid Panel 1961 SDOH Screening 1961 Sigmoidoscopy 1961 Alcohol/Substance Use Screening 1973 Tobacco Screening 1973 Hepatitis C Screening 1979 Hepatitis A Vaccines (1 of 2 - Risk 2-dose series) 02/15/1980 Hepatitis B Vaccines (3 of 3 - Risk 3-dose series) 09/08/2007 04/11/2007, 03/10/2007 Pneumococcal Vaccine: 50+ Years (1 of 1 - PCV) 2011 Zoster Vaccines (1 of 2) 2011 RSV Patients and Patients Aged 60 years or older (1 - Risk 60-74 years 1-dose series) 2021 COVID-19 Vaccine (1 - season) 2024 Influenza Vaccine (#1) 2024 6, 03/12/2015, 03/12/2013, Additional history exists DTaP/Tdap/Td Vaccines (3 - Td or Tdap) 08/06/2031 08/06/2021, 09/24/2011 HIB Vaccines Aged Out No longer eligi ble based on patient's age to complete this topic HPV Vaccines Aged Out No longer eligi ble based on patient's age to complete this topic IPV Vaccines Aged Out No longer eligi ble based on patient's age to complete this topic Meningococcal Vaccine Aged Out No davide orquidea eligible based on patient's age to complete this topic RSV under 20 months Aged Out No longe r eligible based on patient's age to complete this topic Rotavirus Vaccines Aged Out No longer eligible based on patient's age to complete this topic Insurance * Guarantor: John [employer] Account Type Relation to Patient Date of Phone Billing Address Personal/Family Self 1960 [address] [place] [address] [facility] Care Teams Manager Pe Relationship Specialty Start Date End Date Fariha Lopez MD [address] [place], [place] [address] [place] [address] PCP - General Family Medicine 01/07/23
--- OUTSIDE RECORDS SUMMARY | 2024-08-09 12:55 | XMS_ITS ---
Author Organization [facility] Address Unknown Allergies, Adverse Reactions, Alerts Substance Reaction Status Noted Date Resolved Date Penicillins active 01/06/2023 Codeine active 01/06/2023 Acetaminophen active 01/06/2023 Problems Problem Status Start Date End Date OPIOID ABUSE, UNCOMPLICATED (Primary) (F11.10 - ICD-10 -CM) ACTIVE 01/06/2023 RHABDOMYOLYSIS (M62.82 - ICD-10-CM) ACTIVE 01/06 OTHER ACUTE KIDNEY FAILURE (N17.8 - ICD-10-CM) ACTIVE 01/06/2023 WEAKNESS (R53.1 - ICD-10-CM) ACTIVE 01/06/2023 UNSTEADINESS ON FEET (R26.81 - ICD-10-CM) ACTIVE 01/06/2023 METABOLIC ENCEPHALOPATHY (G93.41 - ICD-10-CM) ACTIVE 01/06/2023 HYPO-OSMOLALITY AND HYPONATREMIA (E87.1 - ICD-10-CM) A CTIVE 01/06/2023 OTHER PSYCHOACTIVE SUBSTANCE ABUSE, UNCOMPLICATED (F19.10 - ICD-10-CM) ACTIVE 01/06/2023 Encounters Encounter Performer Performer Role Encounter Diagnoses Location Date Discharge - Left against medical advice, or discontinued care - Other [facility] 3 09:15 pm EDT - 3 02:00 pm EDT Social History
--- OUTSIDE RECORDS SUMMARY | 2024-08-09 12:55 | XMS_ITS | Encounter Summary ---
Author Organization [employer] Address [address] [place] [address] Care Team Providers Care Adjunct Business Instructor Name Role Phone Fariha Lopez MD Primary Care Provider [phone] Encounter Details Date Type Department Care Team (Late st Contact Info) Description 07/20/2024 Patient Outreach [facility] [address] [place], [place] [id number] Wojciech Trujillo [address] [place] [address] Social History Tobacco Use Types Packs/Day Years Used Date Smoking Tobacco: Never Assessed Sex and Gender Information Value Date Recorded Sex Assigned at Male 12/13/2022 11:14 AM EDT Legal Sex Male 11:12 AM EDT Gender Identity Male 12/13/2022 11:14 AM EDT Sexual Orientation Straight 12/13/2022 11 :14 AM EDT documented as of this encounter Progress Notes * Wojciech Trujillo - 07/20/2024 1:28 PM EST Participant came to the recovery center and connected with . jenn Flannery has provided tothe participant. documented in this encounter Plan of Treatment Not on file documented as of this encounter Visit Diagnoses Not on filedocumented in this encounter Care Teams Adjunct Business Instructor Relationship Specialty Start Date End Date Fariha Lopez MD [address] [place] [address] PCP - General Family Medicine 01/07/23 documented as of this encounter
--- OUTSIDE RECORDS SUMMARY | 2024-08-09 12:55 | XMS_ITS | Clinical Summary ---
Author Organization [facility] it Address [address] [place] [address] Care Team Providers Care Chip Applying Machine Tender Name Role Phone Unavailable Primary Care Provider Unavailabl e Social History Tobacco Use Types Packs/Day Years Used Date Smoking Tobacco: Never Assessed Sex and Gender Information Value Date Recorded Sex Assigned at Not on file Legal Sex Male 8:32 PM EST Gender Identity Not on file Sexual Orientation Not on file Plan of Treatment Health Maintenance Due Date Last Done Comments DTaP,Tdap,and Td Vaccines (1 - Tdap) 02/15/1980 Pneumococcal Vaccine: 50+ Ye ars (1 of 1 - PCV) 2011 Zoster Vaccines (1 of 2) 2011 Cholesterol Screening (Lipid Panel) 07/15/2023 Colorectal Cancer Screening: Colonoscopy 07/15/2023 Depression Screening 07/15/2023 HIV Screening 07/15/2023 Hepatitis C Screening 07/15/2023 Social Influencers of Health Screening 07/15/2023 COVID-19 Vaccine ( - 2023-2 5 season) 2024 Influenza Vaccine (#1) 2024 RSV Immunization Patients 60 + Years Old (1 - 1-dose 75+ series) 02/15/2036 HIB Vaccines Aged Out No longer eligi ble based on patient's age to complete this topic HPV Vaccines Aged Out No longer eligi ble based on patient's age to complete this topic Hepatitis A Vaccines Aged Out No long er eligible based on patient's age to complete this topic Hepatitis B Vaccines Aged Out No long er eligible based on patient's age to complete this topic IPV Vaccines Aged Out No longer eligi ble based on patient's age to complete this topic MMR Vaccines Aged Out No longer eligi ble based on patient's age to complete this topic Meningococcal ACWY Vaccine Aged Out N o longer eligible based on patient's age to complete this topic Meningococcal B Vacine Aged Out No lo nger eligible based on patient's age to complete this topic Pneumococcal Vaccine: Pediat rics (0 to 5 Years) and At-Risk Patients (6 to 64 Years) Aged Out No longer eligible b ased on patient's age to complete this topic RSV Immunization Patients Un katie 20 months Aged Out No longer eligible b ased on patient's age to complete this topic Varicella Vaccines Aged Out No longer eligible based on patient's age to complete this topic
[2024-08-09 13:42] LABS: Reflex Lactate? Lactic Acid Added
[2024-08-09 14:20] VITALS: BP 112/65; PULSE 84; RESP 16; TEMP 36.8; O2SAT 96
[2024-08-09 20:21] VITALS: BP 115/68; PULSE 68; RESP 16; TEMP 36.9; O2SAT 98
--- NOTE | 2024-08-09 20:22 | PC.NURSE ---
pt to [email or web address] at this time, obtaining 2nd BC and lactic redraw at this time.
--- NOTE | 2024-08-09 20:36 | MHC.EDTECH ---
This pct just assumed care of Patient ,vitals taken ,2nd set of blood culture and lactic acid drawn and sent to lab .
[2024-08-09 20:57] LABS: ~Lactic Acid-LAB USE ONLY 1.3 mmol/L (0.5-2.0)
[2024-08-09] MEDS: oxyCODONE HCl Immed Release 5 MG TABLET 10 MG PO (21:34)
[2024-08-09] MEDS: cephALEXin 500 MG CAPSULE PO (21:34)
[2024-08-09] MEDS: Lidocaine HCl 1 % MPF 5 ML VIAL INFILTRATI (21:34)
[2024-08-09] MEDS: Doxycycline Monohydrate 100 MG CAPSULE PO (21:34)
[2024-08-09 22:31] VITALS: BP 120/64; PULSE 77; RESP 16; TEMP 37.5; O2SAT 97
[2024-08-09 23:00] VITALS: BP 120/64; PULSE 77; RESP 16; TEMP 37.5; O2SAT 97
== END 2024-08-09 23:00 | disposition home or self-care (01) ==
PROVIDERS: Registered Nurse Emergency; Emergency Provider Emergency Medicine Emergency Medical Services; PCP Internal Medicine
DX: L02.416 Cutaneous abscess of left lower limb (principal); M79.605 Pain in left leg; Z87.891 Personal history of nicotine dependence; Z79.899 Other long term (current) drug therapy
CPT/HCPCS: 10060; 36415; 80053; 83605; 85025; 85652; 86140; 87040; 87070; 87077; 87186; 87205; 99283; 99284; J2003

== ENCOUNTER 2025-02-27 10:17 | Emergency (ER) | payer OTHER, SELFPAY ==
[2025-02-27 10:26] VITALS: BP 121/56; PULSE 65; RESP 18; TEMP 36.9; O2SAT 97; BMI 26.6
--- NOTE | 2025-02-27 10:32 | ED_ITS ---
HPI - Skin/Abscess/Foreign Bdy General Chief complaint: Skin/Abscess/Foreign Body Stated complaint: cyst on nose Time Seen by Provider: 02/27/25 10:30 Source: patient Mode of arrival: ambulatory Limitations: no limitations History of Present Illness ED Provider: RENNY DAVALOS PA-C HPI narrative: 65-year-old male with pmhx significant for CVA presents to the ED today for evaluation of bump to his nose. Reports his left nostril is swollen, now extending to the upper lip. Denies fever, chills. No drainage from the area. Related Data Previous Rx's ?Medication ?Instructions ?Recorded aspirin 81 mg chewable tablet 81 mg PO DAILY #30 tabs 01/06/23 gabapentin 100 mg capsule 100 mg PO BID #30 caps 01/06 hydroxyzine HCl 50 mg tablet 50 mg PO Q8H PRN Anxiety #20 tabs 01/06/23 melatonin 3 mg tablet 6 mg (2 x 3 mg) PO BEDTIME P RN 01/06/23 Insomnia #30 tabs cephalexin 500 mg capsule 500 mg PO QID 5 days #20 cap s 08/09/24 doxycycline hyclate 100 mg tablet 100 mg PO Q12H 5 day s #10 tabs 08/09/24 ibuprofen 400 mg tablet 400 mg PO TID PRN fever or p ain 08/09/24 #30 tabs oxycodone 5 mg tablet 5 mg PO Q6H PRN pain #10 tab s 08/09/24 doxycycline hyclate 100 mg capsule 100 mg PO BID 7 day s #14 caps 02/27/25 Allergies Allergy/AdvReac Type Severity Reaction Status Date / Time acetaminophen (From Allergy Unknown RASH, ITCHY Verified 02/27/25 10:27 Tylenol-Codeine) codeine (From Allergy Unknown RASH, ITCHY Verified 02/27/25 10:27 Tylenol-Codeine) Penicillins Allergy Unknown RASH, ITCHY Verified 02/27/25 10:27 Review of Systems Review of Systems: Yes all other systems are reviewed and are negative PMFSH Past Medical History Attestation statement: The following information was validated with the patient. Source: old records reviewed and nursing notes reviewed Surgical History S/P laparoscopic appendectomy (05/19/22) H/O inguinal hernia repair Social History Social History Household Members: None Household Members Other:: 1 Housing: Apartment Do you presently have visiting nurse or other home services: No Comment: 1:1 sitter Patient Tobacco Use Status: Former Tobacco user Tobacco use type: Cigarette Substance Use Type: Crack/Cocaine and Heroin Advance Directives: No Advance Directives Information Provided: Yes Do you have a plan to hurt others: No Plan service: No Current occupational status: disabled Physical Exam 2 Vital Signs: Vital Signs: Last Vital Signs Temp 98.5 F 02/27/25 10:48 Pulse 65 02/27/25 10:48 Resp 18 02/27/25 10:48 BP 121/56 L 02/27/25 10:48 Pulse Ox 97 02/27/25 10:48 O2 Del Method Room Air 02/27/25 10:48 BMI result Body Mass Index 26.6 Vital signs stable, afebrile General: Well appearing, in no acute distress. Skin: Small area of swelling/induration noted to left nasal vestibule/upper lip. No palpable fluctuance. No pointing. Head: Normocephalic, atraumatic. EENT: Hearing is intact b/l. Conjunctiva clear. Sclera is anicteric. PERRLA. EOM intact. Moist mucous membranes.? Dentition intact, no periapical abscess. Cardiac: Chest wall symmetric. RRR Lungs: Normal respiratory effort without accessory muscle use. CTA bilaterally Ext: Upper and lower extremities atraumatic, without tenderness, deformity, swelling or erythema Neuro: AOx3. Normal speech. Ambulating with steady gait Medical Decision Making Medical Decision Making MDM Narrative: 65-year-old male with pmhx significant for CVA presents to the ED today for evaluation of bump to his nose. Vital signs stable. On exam, small area of swelling/induration noted to left nasal vestibule/upper lip. No palpable fluctuance. No pointing. Exam consistent with folliculitis. He does have a history of MRSA. MRSA swab sent. Will treat with doxycycline. Patient has remained stable throughout ED visit today. Discussed worrisome signs and symptoms and when to return to the ED. All questions answered at this time. Patient is agreeable with disposition and stable for discharge. Differential Diagnosis Differential Diagnoses: The differential diagnosis associated with the presentation includes Folliculitis, cellulitis. Unlikely abscess, osteomyelitis, Gray's angina, dental abscess Admission/Observation Not indicated Lab Data MDM Lab Attestation statement: I reviewed the patient's lab results. As above Labs: Lab Results 02/27/25 Range/Units 10:33 Nasal Screen MRSA (PCR) POSITIVE A (Negative) Nasal S. aureus Screen POSITIVE A (Negative) Nasal MRSA/S.aureus Interp SEE NOTE External Record Review External record reviewed: Inpatient record Prescription Management I considered prescription management with: Antibiotic (Doxycycline) Chronic Conditions Patient?s care impacted by: Other (MRSA) Social Determinants Patient?s care significantly limited by Social Determinants of Health including: Other Social Determinant of Health Critical Care Time Critical Care Time Critical Care Time: No Discharge Plan Discharge Clinical Impression: Folliculitis Patient Disposition: Home, Self-Care Instructions: Folliculitis (ED) Additional Instructions: You were evaluated in the ED today for painful bump to your left nose. We have sent a sample of this to the lab. There is no evidence of abscess that would warrant drainage at this time. You are being started on antibiotics (doxycycline). Please take the antibiotics as directed for the full course of the medication. If the area progresses you may have to it incised and drained. On doxycycline, do not take pills immediately before going to bed and swallow pills with plenty of water. Avoid direct sunlight, iron, antacids, and Pepto Bismol. Call your provider if you develop new ringing in your ears, new problems hearing, dizziness, difficulty swallowing, rash, abdominal discomfort, nausea, or diarrhea. I recommend you take 600mg ibuprofen every 6 hours or Tylenol 650mg every 6 hours as needed for pain. If needed, you can alternate these medications so that you take one medication every 3 hours. For example, at noon take ibuprofen, then at 3pm take Tylenol, then at 6pm take ibuprofen. Please schedule an appointment with your primary care provider as soon as possible for follow up. You have also been provided with a referral to a general surgeon. You may call them to establish care. They will not call you. Return to the Emergency Department if you experience fevers greater than 100.4F, increase in area of redness or swelling, increasing amount of discharge from the area, increased tenderness around the area, or any other concerning symptoms. Prescriptions: New doxycycline hyclate 100 mg capsule 100 mg PO BID 7 Days Qty: 14 0RF No Action hydroxyzine HCl 50 mg Tablet 50 mg PO Q8H PRN (Reason: Anxiety) Qty: 20 0RF melatonin 3 mg Tablet 6 mg PO BEDTIME PRN (Reason: Insomnia) Qty: 30 0RF aspirin 81 mg Tablet,Chewable 81 mg PO DAILY Qty: 30 0RF gabapentin 100 mg Capsule 100 mg PO BID Qty: 30 0RF cephalexin 500 mg capsule 500 mg PO QID 5 Days Qty: 20 0RF ibuprofen 400 mg tablet 400 mg PO TID PRN (Reason: fever or pain) Qty: 30 0RF doxycycline hyclate 100 mg tablet 100 mg PO Q12H 5 Days Qty: 10 0RF oxycodone 5 mg tablet 5 mg PO Q6H PRN (Reason: pain) Qty: 10 0RF Rx Instructions: Partial Fill upon patient request. Referrals: Physician,Unknown J [Physician, Medical] Interventions: ED Discharge Assessment Last Done: 02/27/25 10:48 Discharge Date/Time: 02/27/25 10:48 Print Language: Croatian
[2025-02-27 10:48] VITALS: BP 121/56; PULSE 65; RESP 18; TEMP 36.9; O2SAT 97
[2025-02-27 11:56] LABS: MRSA Nasal PCR POSITIVE (Negative); SA Nasal PCR POSITIVE (Negative)
--- OUTSIDE RECORDS SUMMARY | 2025-02-27 13:15 | XMS_ITS | Clinical Summary ---
Author Organization [employer] Address [address] [place] [address] Care Team Providers Care Environmental Associate Name Role Phone Fariha Lopez MD Primary Care Provider [phone] Allergies Active Allergy Reactions Criticality Noted Date Comments Codeine 12/07/2022 Morphine 12/07/2022 Penicillin G Rash Low 12/07/2022 Medications mupirocin (Bactroban) 2 % ointment APPLY TO THE AFFECTED AREA(S) TOPICALLY TWICE DAILY Active Social History Tobacco Use Types Packs/Day Years [...] Panel 1961 SDOH Screening 1961 Sigmoidoscopy 1961 Disability Screening 1961 Alcohol/Substance Use Screening 1973 Tobacco Screening [...] series) 2021 COVID-19 Vaccine (1 - season) 2025 Influenza Vaccine (#1) 2025 6, 03/12/2015, 03/12/2013, Additional history exists DTaP/Tdap/Td [...] age to complete this topic Meningococcal B Vaccine Aged Out No l onger eligible based on patient's age to complete this topic Meningococcal Vaccine Aged Out No davide orquidea eligible based on patient's age to complete this topic RSV under 20 months Aged Out No longe r eligible based on patient's age to complete this topic Rotavirus Vaccines Aged Out No longer eligible based on patient's age to complete this topic Insurance [facility] STANDARD Care Teams Environmental Associate Relationship Specialty Start Date End Date Fariha Lopez MD [address] [place] [address] PCP - General Family Medicine 01/07/23
--- OUTSIDE RECORDS SUMMARY | 2025-02-27 13:15 | XMS_ITS | Clinical Summary ---
Author Organization [facility] Address [address] [place] [address] Phone Care Team Providers Care Loader [employer] Name Role Phone Bogdan Trujillo MD Primary Care Provider [phone] Allergies Active Allergy Reactions Criticality Noted Date Comments Codeine 12/07/2022 Morphine 12/07/2022 Penicillin Rash Low 12/07/2022 Medications No known medications Social History Tobacco Use Types Packs/Day Years Used Date Smoking Tobacco: Never Assessed Digital Access Answer Date Recorded No 12/03/2022 No 12/03/2022 Reliable internet access at home? Not on file 12/03/2022 Device with a working camera? Not on file Sex and Gender Information Value Date Recorded Sex Assigned at Not on file Legal Sex Male 9:47 PM EDT Gender Identity Not on file Sexual Orientation Not on file Last Filed Vital Signs Vital Sign Reading Time Taken Comments Blood Pressure 123/79 12/07/2022 2:21 PM EDT Pulse 83 12/07/2022 2:21 PM EDT Temperature 36.8 C (98.2 F) 12/07/2022 2:21 PM EDT Respiratory Rate 14 12/07/2022 2:21 PM EDT Oxygen Saturation 97% 12/07/2022 2:21 PM EDT Inhaled Oxygen Concentration - - Weight - - Height - - Body Mass Index - - Plan of Treatment Health Maintenance Due Date Last Done Comments LIPID PANEL 1961 DEPRESSION SCREENING 1973 SMOKING Hx and SMOKELESS TOBACCO SCREENING 1974 HEPATITIS C SCREENING 1979 HIV ONE-TIME SCREENING (18-65 YEARS) 1979 COLOGUARD 2006 COLONOSCOPY 2006 COLORECTAL CANCER SCREENING 2006 FIT TEST 2006 FOBT 2006 SIGMOIDOSCOPY 2006 VIRTUAL COLONOSCOPY 2006 PNEUMOCOCCAL VACCINES (50+ years) (1 of 1 - PCV) 2011 ZOSTER VACCINES (1 of 2) 2011 Adult Td,Tdap Booster 09/23/2021 09/24/2011 INFLUENZA VACCINE (#1) 2025 6, 03/12/2015, 03/12/2013, Additional history exists COVID-19 VACCINE ( - season) 2025 RSV VACCINE (1 - 1-dose 75+ series) 02/15/2036 HEPATITIS A VACCINES Aged Out No long er eligible based on patient's age to complete this topic HIB VACCINES Aged Out No longer eligi ble based on patient's age to complete this topic MENINGOCOCCAL VACCINES (ACWY) Aged Out No longer eligible based on patient's age to complete this topic MENINGOCOCCAL VACCINES (B) Aged Out N o longer eligible based on patient's age to complete this topic Medical Devices Not on file Insurance Member Subscriber Plan / Payer (Ef fective 2022-Present) Name:John John Relation to Subscriber:Self Name:John John Payer ID:Not on file Type:Medicaid Address: [place] [id number] [employer] Care Teams Loader [employer] Relationship Specialty Start Date End Date Bogdan Trujillo MD [address] [place] [address] PCP - General Internal Medicine 12/03/22 Additional Source Comments The information contained in this document represents components of the legal health record. It is not the complete legal health record.[facility]
--- OUTSIDE RECORDS SUMMARY | 2025-02-27 13:15 | XMS_ITS | Clinical Summary ---
Author Organization [facility] Address [address] [place] [address] Phone Care Team Providers Care Milling/Polishing Operator Name Role Phone Fariha Lopez MD Primary Care Provider [phone] Social History Tobacco Use Types Packs/Day Years Used Date Smoking Tobacco: Never Assessed Sex and Gender Information Value Date Recorded Sex Assigned at Not on file Legal Sex Male 9:49 AM EDT Gender Identity Not on file Sexual Orientation Not on file Plan of Treatment Health Maintenance Due Date Last Done Comments Colorectal Cancer Screening: Annual FOBT 2010 Colorectal Cancer Screening: Colonoscopy 2010 Colorectal Cancer Screening: Sigmoidoscopy 2010 Pneumococcal Vaccine: 50+ Ye ars (1 of 1 - PCV) 2011 Hepatitis B Vaccine (1 of 3 - Risk 3-dose series) 2021 04/11/2007, 03/10/2007 Influenza Vaccine (#1) 2025 Insurance [place] * Guarantor: John John Account Type Relation to Patient Date of Phone Billing Address Personal/Family Self [address] [place] [address] [place] Care Teams Milling/Polishing Operator Relationship Specialty Start Date End Date Fariha Lopez MD [address] [place] [address] PCP - General Family Medicine 01/03/23
== END 2025-02-27 10:48 | disposition home or self-care (01) ==
PROVIDERS: Emergency Provider Emergency Medicine
DX: L73.9 Follicular disorder, unspecified (principal); J34.3 Hypertrophy of nasal turbinates
CPT/HCPCS: 87640; 87641; 99282; 99283